=== PATIENT | male | born 1965 | race Caucasian/White ===

== ENCOUNTER 2018-10-25 15:06 | Inpatient (IN) | payer MEDICARE ==
[2018-10-25] MEDS ORDERED: FUROSEMIDE INJ/PF 20 MG/2 ML SDV IV ONE (15:33)
--- NOTE | 2018-10-25 15:35 | ER Document Report ---
ED Medical Screen (RME) - General Chief Complaint: Shortness Of Breath Stated Complaint: DIFFICULTY BREATHING Time Seen by Provider: 10/25/18 15:32 Mode of Arrival: Wheelchair Information source: Patient TRAVEL OUTSIDE OF THE [place] IN LAST 30 DAYS: No - HPI Patient complains to provider of: SOB; CHF Onset: Other - Pt . with h/o CHF with fluid retention and SOB for the past few days. Denies CP Physical Exam - Vital signs Vitals: Temp Pulse Resp BP Pulse Ox 97.9 F 86 18 105/70 96 10/25/18 15:14 10/25/18 15:14 10/25/18 15:14 10/25/18 15:14 10/25/18 15:14 Course - Vital Signs Vital signs: Temp Pulse Resp BP Pulse Ox 97.9 F 86 18 105/70 96 10/25/18 15:14 10/25/18 15:14 10/25/18 15:14 10/25/18 15:14 10/25/18 15:14
--- NOTE | 2018-10-25 16:03 | RADIOLOGY REPORT (SQ) ---
EXAM DESCRIPTION: CHEST 2 VIEWS COMPLETED DATE/TIME: 10/25/2018 3:53 pm REASON FOR STUDY: CHF/SOB COMPARISON: None. EXAM PARAMETERS: NUMBER OF VIEWS: two views TECHNIQUE: Digital Frontal and Lateral radiographic views of the chest acquired. RADIATION DOSE: NA LIMITATIONS: none FINDINGS: LUNGS AND PLEURA: No consolidation, masses or pneumothorax. Small calcified granulomas in the right lung base. Trace right pleural effusion. MEDIASTINUM AND HILAR STRUCTURES: No masses or contour abnormalities. HEART AND VASCULAR STRUCTURES: Cardiomegaly. BONES: No acute findings. HARDWARE: Sternotomy. Cardiac defibrillator. OTHER: No other significant finding. IMPRESSION: Trace right pleural effusion. No consolidation. Cardiomegaly. TECHNICAL DOCUMENTATION: JOB ID: [id number] [place]-72 2010 [employer]- All Rights Reserved Reading location - IP/workstation name: [employer]
[2018-10-25] MEDS ORDERED: FUROSEMIDE INJ/PF 40 MG/4 ML SDV IV ONE ×2 (18:49→23:59)
[2018-10-25] MEDS ORDERED: ONDANSETRON HCL INJ/PF 4 MG/2 ML SDV IV ONE (18:49)
[2018-10-25 18:52] LABS: ABSOLUTE BASOPHILS # (AUTO) 0.1 10^3/uL (0.0-0.2); ABSOLUTE EOSINOPHILS # (AUTO) 0.1 10^3/uL (0.0-0.6); ABSOLUTE LYMPHOCYTES (AUTO) 1.3 10^3/uL (0.5-4.7); ABSOLUTE MONOCYTES (AUTO) 0.6 10^3/uL (0.1-1.4); ABSOLUTE NEUT (AUTO) 5.2 10^3/uL (1.7-8.2); BASOPHILS % (AUTO) 1.1 % (0-2); HEMATOCRIT 27.5 % (37.9-51.0); HEMOGLOBIN 8.4 g/dL (13.5-17.0); LYMPHOCYTES % (AUTO) 17.6 % (13-45); MEAN CORPUSCULAR HEMOGLOBIN 20.7 pg (27.0-33.4); MEAN CORPUSCULAR HGB CONC 30.6 g/dL (32.0-36.0); MEAN CORPUSCULAR VOLUME 68 fl (80-97); MONOCYTES % (AUTO) 8.9 % (3-13); PLATELET COUNT 434 10^3/uL (150-450); RED BLOOD COUNT 4.07 10^6/uL (4.35-5.55); RED CELL DISTRIBUTION WIDTH 20.7 % (11.5-14.0); SEGMENTED NEUTROPHILS % (AUTO) 71.4 % (42-78); TOTAL CELLS COUNTED % (AUTO) 100 %; WHITE BLOOD COUNT 7.3 10^3/uL (4.0-10.5)
[2018-10-25 19:12] LABS: ALANINE AMINOTRANSFERASE 108 U/L (21-72); ALBUMIN 3.4 g/dL (3.5-5.0); ALKALINE PHOSPHATASE 125 U/L (38-126); ANION GAP 14 (5-19); ASPARTATE AMINO TRANSFERASE 78 U/L (17-59); BILIRUBIN,DIRECT 0.5 mg/dL (0.0-0.4); BLOOD UREA NITROGEN 40 mg/dL (7-20); CALCIUM 8.9 mg/dL (8.4-10.2); CARBON DIOXIDE 22 mmol/L (22-30); CHLORIDE 98 mmol/L (98-107); CREATINE KINASE 109 U/L (55-170); GLUCOSE 245 mg/dL (75-110); POTASSIUM 3.8 mmol/L (3.6-5.0); SODIUM 134.3 mmol/L (137-145); TOTAL PROTEIN 6.8 g/dL (6.3-8.2)
[2018-10-25 19:17] LABS: CREATINE KINASE MB 2.61 ng/mL (<4.55)
[2018-10-25 19:24] LABS: TROPONIN I 0.051 ng/mL
[2018-10-25 19:41] LABS: INTERNATIONAL RATION (INR) 2.07; PROTHROMBIN TIME 24.3 SEC (11.4-15.4)
--- NOTE | 2018-10-25 20:15 | ER Document Report ---
ED Respiratory Problem - General Chief Complaint: Shortness Of Breath Stated Complaint: DIFFICULTY BREATHING Time Seen by Provider: 10/25/18 15:32 Mode of Arrival: Wheelchair Information source: Patient TRAVEL OUTSIDE OF THE [place] IN LAST 30 DAYS: No - HPI Patient complains to provider of: CHF, Short of breath Onset: Other - 2-3 days Duration: Worse/persistent Quality of pain: No pain Context: Hx CHF, Recent long distance trvl Short of Breath: Moderate Chest pain/discomfort: Tightness Cough: Nonproductive Associated symptoms: Extertional dyspnea, Orthopnea, Short of breath Similar symptoms previously: Yes Notes: Patient is a 53-year-old male presenting to the emergency room today complaining of shortness of breath, lower extremity edema and dyspnea on exertion, symptoms have been worsening over the past 3 days, he has a history of congestive heart failure, states he has gained 5 pounds over the past week as well, patient spent the last 3 drink days driving to the [place] area from [place], where he was previously in a rehab facility, he was being discharged from there and had no place to go, since he has a brother that lives in the [place] area he spent 3 days driving here, he states he stopped frequently, he did spend [address] yesterday but stopped 4-5 times, he does have a history of congestive heart failure, and NH with 1 stent, and AICD and atrial fibrillation, he takes 40 mg of torsemide twice daily, states he has not missed any doses of this, but did run out of his Coumadin 2 days ago, denies a history of DVT or PE previously, no fever, no cough, denies chest pain - Related Data Allergies/Adverse Reactions: indomethacin [From Indocin] Allergy (Verified 10/25/18 18:46) levofloxacin [From Levaquin] Allergy (Verified 10/25/18 18:46) Past Medical History - General Information source: Patient - Social History Smoking Status: Former Smoker Chew tobacco use (# tins/day): No Frequency of alcohol use: None Drug Abuse: None Family History: Reviewed & Not Pertinent Patient has suicidal ideation: No Patient has homicidal ideation: No - Past Medical History Cardiac Medical History: Reports: Hx Congestive Heart Failure Pulmonary Medical History: Reports: Hx COPD Endocrine Medical History: Reports: Hx Diabetes Mellitus Type 2 Renal/ Medical History: Denies: Hx Peritoneal Dialysis Past Surgical History: Reports: Hx Cardiac Surgery - Pacemaker/defibrillator Review of Systems - Review of Systems Constitutional: No symptoms reported EENT: No symptoms reported Cardiovascular: Orthopnea, Dyspnea, Edema Respiratory: Short of breath Gastrointestinal: No symptoms reported Genitourinary: No symptoms reported Male Genitourinary: No symptoms reported Musculoskeletal: No symptoms reported Skin: No symptoms reported Hematologic/Lymphatic: No symptoms reported Neurological/Psychological: No symptoms reported -: Yes All other systems reviewed and negative Physical Exam - Vital signs Vitals: Temp Pulse Resp BP Pulse Ox 97.9 F 86 18 105/70 96 10/25/18 15:14 10/25/18 15:14 10/25/18 15:14 10/25/18 15:14 10/25/18 15:14 Interpretation: Normal - General General appearance: Alert In distress: None - HEENT Head: Normocephalic, Atraumatic Eyes: Normal Conjunctiva: Normal Pupils: PERRL Mucous membranes: Dry - Respiratory Respiratory status: No respiratory distress Chest status: Nontender Breath sounds: Rales Chest palpation: Normal - Cardiovascular Rhythm: Regular Heart sounds: Normal auscultation Murmur: No - Abdominal Inspection: Obese Distension: No distension Bowel sounds: Normal Tenderness: Nontender Organomegaly: No organomegaly - Back Back: Normal, Nontender - Extremities General upper extremity: Normal inspection, Nontender, Normal color, Normal ROM, Normal temperature General lower extremity: Normal inspection, Nontender, Edema, Normal color, Normal ROM, Normal temperature, Normal weight bearing. No: Ramila's sign - Neurological Neuro grossly intact: Yes Cognition: Normal Orientation: AAOx4 Sid Coma Scale Eye Opening: Spontaneous [place] Coma Scale Verbal: Oriented [place] Coma Scale Motor: Obeys Commands [place] Coma Scale Total: 15 Speech: Normal Motor strength normal: LUE, RUE, LLE, RLE Sensory: Normal - Psychological Associated symptoms: Normal affect, Normal mood - Skin Skin Temperature: Warm Skin Moisture: Dry Skin Color: Normal Course - Re-evaluation Re-evalutation: 10/25/18 22:22 Patient discussed with hospitalist, Dr Morillo, who will admit for further evaluation and treatment, plan discussed with patient who is in agreement as well - Vital Signs Vital signs: Temp Pulse Resp BP Pulse Ox 97.9 F 86 16 136/81 H 100 10/25/18 15:14 10/25/18 15:14 10/25/18 21:01 10/25/18 21:01 10/25/18 21:01 - Laboratory Result Diagrams: 10/25/18 18:39 10/25/18 18:39 Laboratory results interpreted by me: 10/25/18 10/25/18 10/25/18 18:39 18:39 18:39 RBC 4.07 L Hgb 8.4 L Hct 27.5 L MCV 68 L MCH 20.7 L MCHC 30.6 L RDW 20.7 H PT APTT Sodium 134.3 L BUN 40 H Creatinine 1.78 H Est GFR ( Amer) 48 L Est GFR (Non-Af Amer) 40 L Glucose 245 H Direct Bilirubin 0.5 H AST 78 H ALT 108 H NT-Pro-B Natriuret Pep 8970 H Albumin 3.4 L Urine Urobilinogen Ur Leukocyte Esterase 10/25/18 10/25/18 18:39 21:27 RBC Hgb Hct MCV MCH MCHC RDW PT 24.3 H APTT 45.0 H Sodium BUN Creatinine Est GFR ( Amer) Est GFR (Non-Af Amer) Glucose Direct Bilirubin AST ALT NT-Pro-B Natriuret Pep Albumin Urine Urobilinogen 4.0 H Ur Leukocyte Esterase LARGE H - Diagnostic Test Radiology reviewed: Image reviewed, Reports reviewed - EKG Interpretation by Me Rate: Normal Additional EKG results interpreted by me: 10/25/18 22:16 Paced rhythm at a rate of 82 Discharge - Discharge Clinical Impression: CAESAR (acute kidney injury) Congestive heart failure Qualifiers: Heart failure type: unspecified Heart failure chronicity: acute on chronic Qualified Code(s): I50.9 - Heart failure, unspecified Anemia Qualifiers: Anemia type: unspecified type Qualified Code(s): D64.9 - Anemia, unspecified Condition: Fair Disposition: ADMITTED INPATIENT Admitting Provider: Hospitalist Unit Admitted: Telemetry
[2018-10-25 21:44] LABS: APPEARANCE,URINE SLIGHTLY-CLOUDY; BILIRUBIN,URINE NEGATIVE (NEGATIVE); COLOR,URINE YELLOW; GLUCOSE, URINE NEGATIVE (NEGATIVE); KETONES,URINE NEGATIVE (NEGATIVE); LEUKOCYTE ESTERASE,URINE LARGE (NEGATIVE); NITRITE,URINE NEGATIVE (NEGATIVE); PROTEIN,URINE NEGATIVE (NEGATIVE)
--- NOTE | 2018-10-25 22:14 | EKG REPORT ---
SEVERITY:- ABNORMAL ECG - ATRIAL-SENSED VENTRICULAR-PACED COMPLEXES FIRST DEGREE AV BLOCK LEFT ATRIAL ABNORMALITY NONSPECIFIC INTRAVENTRICULAR CONDUCTION DELAY : Confirmed by: Trista Welch 25-Oct-2018 22:12:51
[2018-10-25] MEDS ORDERED: CEFTRIAXONE INJ 1000 MG VIAL IV ONE (22:17)
[2018-10-25] MEDS ORDERED: MAGNESIUM HYDROXIDE SUSP 30 ML UDCUP PO PRN (22:38)
[2018-10-25] MEDS ORDERED: ONDANSETRON 4 MG TAB.RAPDIS PO PRN (22:47)
--- NOTE | 2018-10-25 22:55 | RADIOLOGY REPORT (SQ) ---
EXAM DESCRIPTION: NM LUNG VENTILATION PERFUSION COMPLETED DATE/TME: 10/25/2018 19:44 CLINICAL HISTORY: 53 years, Male, sob, afib, off coumadin 1 week COMPARISON: None. RADIONUCLIDE AND DOSE: 30 mCi of technetium 99m DTPA aerosol was inhaled, with 5 mCi of technetium 99m MAA injected. ADDITIONAL DRUGS AND DOSES: None TECHNIQUE: AP images of the thorax were obtained RADIATION DOSE: Unknown LIMITATIONS: None. FINDINGS: There was difficulty with the patient's IV. Perfusion images were not acquired. 5 minute ventilation images were obtained. Areas of poor radiotracer activity are noted bilaterally. Per history given the patient was unable to tolerate the exam.. IMPRESSION: Nondiagnostic exam. copyright 2010 [employer]- All Rights Reserved
--- NOTE | 2018-10-25 23:27 | PDOC H&P ---
History of Present Illness Admission Date/PCP: 10/25/18 22:48 No local primary care physician Patient complains of: Shortness of breath History of Present Illness: THADDEUS DEY is a 53 year old male with history of multiple medical problems that will be mentioned below who presented to the emergency room with acute onset of worsening dyspnea with associated orthopnea and paroxysmal nocturnal dyspnea as well as lower extremity edema with dyspnea on exertion over the last 10 days. He denies any fever or chills. He has been having cough occasionally productive of green sputum and admitted to wheezing as well as nausea without vomiting. He denies any dysuria or hematuria or flank pain. He did not have much urine output today. Upon presentation to the emergency room, vital signs were within normal. Labs revealed a hemoglobin of 8.4 hematocrit 27.5 with WBC of 7.3 and platelets of 434. The patient is not aware about history of anemia so does not know his baseline.. He is on Coumadin and INR is 2.07 with PT of 24.3 and PTT 45. CMP revealed sodium 134.3 and a BUN of 40 with a creatinine 1.78 with a blood glucose of 245. His AST was 78 and ALT 108. His BNP came back 8970 with a troponin I 0.051 and albumin of 3.4 with total protein of 6.8. His urinalysis showed large leukocyte esterase and 40 WBCs with 2 RBCs and trace bacteria. His EKG showed paced rhythm with a rate of 82. Chest x-ray revealed trace right pleural effusion and cardiomegaly. Patient went for a VQ scan to rule out PE and he could not tolerate the study therefore it was nondiagnostic. The patient was given form a gram of IV Zofran as well as 40 mg of IV Lasix and a gram of IV Rocephin. He will be admitted to telemetry bed for further evaluation and management. Past Medical History Cardiac Medical History: Reports: Atrial Fibrillation - On amiodarone and anticoagulation Coumadin, Congestive Heart Failure Pulmonary Medical History: Reports: Chronic Obstructive Pulmonary Disease ( COPD), Sleep Apnea - On home BiPAP Endocrine Medical History: Reports: Diabetes Mellitus Type 2 Past Surgical History Past Surgical History: #1 AICD placement 2. PCI and cardiac stent 3. Cholecystectomy 4. Appendectomy 5. 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 Social History Smoking Status: Former Smoker Frequency of Alcohol Use: None Hx Recreational Drug Use: No Family History Family History: CVA - Mother Parental Family History Reviewed: Yes Children Family History Reviewed: Yes Sibling(s) Family History Reviewed.: Yes Medication/Allergy Home Medications: Amiodarone HCl [Amiodarone HCl 400 mg Tablet] 2 tab PO BID 10/25/18 Clopidogrel Bisulfate [Plavix] 1 tab PO DAILY 10/25/18 Gabapentin [Neurontin 100 mg Capsule] 2 tab PO TID 10/25/18 Insulin Lispro [Humalog Kwikpen U-100] 14 units SUBCUT DAILY 10/25/18 Lorazepam [Ativan 0.5 mg Tablet] 1 tab PO PRN PRN 10/25/18 Metoprolol Succinate [Toprol Xl] 0.5 tab PO BID 10/25/18 Mexiletine HCl [Mexitil 200 mg Capsule] 1 cap PO TID 10/25/18 Ondansetron [Zofran Odt 4 mg Tablet] 1 tab PO PRN PRN 10/25/18 Spironolactone 1 tab PO DAILY 10/25/18 Torsemide [Demadex] 2 tab PO BID 10/25/18 Warfarin Sodium [Coumadin 4 mg Tablet] 4 mg PO QHS 10/25/18 Allergies/Adverse Reactions: indomethacin [From Indocin] Allergy (Verified 10/25/18 18:46) levofloxacin [From Levaquin] Allergy (Verified 10/25/18 18:46) Review of Systems Review of Systems: As per history of present illness. All pertinent systems were reviewed above. Constitutional, HEENT, cardiovascular, respiratory, GI, , musculoskeletal, neuro, psychiatric, endocrine, integumentary and hematologic systems were reviewed and are otherwise negative/unremarkable except for positive findings mentioned above in the HPI. Physical Exam Vital Signs: Temp Pulse Resp BP Pulse Ox 97.9 F 86 16 136/81 H 100 10/25/18 15:14 10/25/18 15:14 10/25/18 21:01 10/25/18 21:01 10/25/18 21:01 Intake & Output 10/24/18 10/25/18 10/26/18 06:59 06:59 06:59 Output Total 525 Balance -525 Weight 129.5 kg Exam: Generally: Pleasant obese middle-aged male in mild respiratory distress with conversational dyspnea Vital signs-as listed Head - atraumatic, normocephalic. Pupils - equal, round and reactive to light and accommodation. Extraocular movements are intact. No scleral icterus. Oropharynx - moist mucous membranes and tongue. No pharyngeal erythema or exudate. Neck - supple. No JVD. Carotid pulses 2+ bilaterally. No carotid bruits. No palpable thyromegaly or lymphadenopathy. Cardiovascular - regular rate and rhythm. Normal S1 and S2. No murmurs, gallops or rubs. Lungs -diminished bibasilar breath sounds more on the right with left basilar rales Abdomen - soft and nontender. Positive bowel sounds. No palpable organomegaly or masses. Extremities -1+ bilateral lower extremity pitting edema, with no clubbing or cyanosis. Neuro - grossly non-focal. Skin - no rashes. and rectal exam - deferred. Results Laboratory Results: 10/25/18 18:39 10/25/18 18:39 10/25/18 10/25/18 10/25/18 18:39 18:39 21:27 WBC 7.3 RBC 4.07 L Hgb 8.4 L Hct 27.5 L MCV 68 L MCH 20.7 L MCHC 30.6 L RDW 20.7 H Plt Count 434 Seg Neutrophils % 71.4 Lymphocytes % 17.6 Monocytes % 8.9 Eosinophils % 1.0 Basophils % 1.1 Absolute Neutrophils 5.2 Absolute Lymphocytes 1.3 Absolute Monocytes 0.6 Absolute Eosinophils 0.1 Absolute Basophils 0.1 Sodium 134.3 L Potassium 3.8 Chloride 98 Carbon Dioxide 22 Anion Gap 14 BUN 40 H Creatinine 1.78 H Est GFR ( Amer) 48 L Est GFR (Non-Af Amer) 40 L Glucose 245 H Calcium 8.9 Total Bilirubin 1.0 AST 78 H ALT 108 H Alkaline Phosphatase 125 Total Protein 6.8 Albumin 3.4 L Urine Color YELLOW Urine Appearance SLIGHTLY-CLOUDY Urine pH 5.0 Ur Specific [place] 1.010 Urine Protein NEGATIVE Urine Glucose (UA) NEGATIVE Urine Ketones NEGATIVE Urine Blood NEGATIVE Urine Nitrite NEGATIVE Ur Leukocyte Esterase LARGE H Urine WBC (Auto) 48 Urine RBC (Auto) 2 10/25/18 10/25/18 18:39 18:39 Creatine Kinase 109 CK-MB (CK-2) 2.61 Troponin I 0.051 NT-Pro-B Natriuret Pep 8970 H Impressions: Chest X-Ray 10/25/18 15:32 IMPRESSION: Trace right pleural effusion. No consolidation. Cardiomegaly. Lung Scan-VQ NM 10/25/18 19:44 IMPRESSION: Nondiagnostic exam. copyright 2010 [employer]- All Rights Reserved Assessment and Plan - Diagnosis (1) Acute on chronic systolic (congestive) heart failure Is this a current diagnosis for this admission?: Yes Plan: The patient will be admitted to a telemetry bed and will be diuresed with IV Lasix and continue Aldactone. Will follow serial cardiac enzymes. Will obtain a 2D echo and a cardiology consultation in a.m. (2) UTI (urinary tract infection) Is this a current diagnosis for this admission?: Yes Plan: The patient will be placed on IV Rocephin and urine culture and sensitivity will be obtained. (3) Type 2 diabetes mellitus Is this a current diagnosis for this admission?: Yes Plan: He will be placed on supplemental coverage with Humalog (4) Anemia Qualifiers: Anemia type: unspecified type Qualified Code(s): D64.9 - Anemia, unspecified Is this a current diagnosis for this admission?: Yes Plan: This could be contributing to his acute CHF. Will obtain anemia workup could be chronic secondary to his chronic kidney disease. (5) Hypertension Is this a current diagnosis for this admission?: Yes Plan: We will continue his mexiletine and Toprol-XL . (6) Atrial fibrillation Is this a current diagnosis for this admission?: Yes Plan: We will continue his amiodarone and anticoagulation with Coumadin and follow his INR. (7) CAESAR (acute kidney injury) Is this a current diagnosis for this admission?: Yes Plan: This is likely prerenal from acute CHF. Will follow BMP with diuresis. (8) DVT prophylaxis Is this a current diagnosis for this admission?: Yes Plan: He has therapeutic INR on Coumadin which will be followed - Time Medications reviewed and adjusted accordingly: Yes Anticipated discharge: Home Within: within 72 hours - Inpatient Certification Medical Necessity: Need Close Monitoring Due to Risk of Patient Decompensation, Need For Continuous Telemetry Monitoring, Risk of Complication if Not Cared For in Hospital, Other - IV diuresis - Plan Summary Plan Summary: The plan of care was discussed in details with the patient. I answered all questions. The patient agreed to proceed with the above-mentioned plan. The patient is presumably full code. This note was created by [employer] software and may contain typo errors that may have not been proofread.
[2018-10-25] MEDS ORDERED: GLUCAGON,HUMAN RECOMB 1 MG INJ IM PRN (23:30)
[2018-10-25] MEDS ORDERED: DEXTROSE 50%-WATER 25 GM/50 ML DISP.SYRIN IV PRN ×2 (23:30)
[2018-10-25] MEDS ORDERED: DEXTROSE 40% GEL 15 GM TUBE PO PRN ×2 (23:30)
[2018-10-25] MEDS ORDERED: MEXILETINE HCL 200 MG CAPSULE PO ONE (23:59)
[2018-10-25] MEDS ORDERED: AMIODARONE HCL 200 MG TABLET PO ONE (23:59)
[2018-10-25] MEDS ORDERED: GABAPENTIN 100 MG CAPSULE PO ONE (23:59)
[2018-10-26 01:49] LABS: CREATINE KINASE 96 U/L (55-170)
[2018-10-26 02:02] LABS: CREATINE KINASE MB 2.39 ng/mL (<4.55); TROPONIN I 0.075 ng/mL
[2018-10-26] MEDS: ONDANSETRON HCL INJ/PF 4 MG/2 ML SDV IV PRN ×2 (07:23→17:51)
[2018-10-26 07:41] LABS: ABSOLUTE BASOPHILS # (AUTO) 0.1 10^3/uL (0.0-0.2); ABSOLUTE EOSINOPHILS # (AUTO) 0.1 10^3/uL (0.0-0.6); ABSOLUTE MONOCYTES (AUTO) 0.7 10^3/uL (0.1-1.4); ABSOLUTE NEUT (AUTO) 5.5 10^3/uL (1.7-8.2); ABSOLUTE RETICS # 0.133 10^6/uL (0.028-0.122); BASOPHILS % (AUTO) 1.2 % (0-2); EOSINOPHILS % (AUTO) 1.4 % (0-6); HEMATOCRIT 27.6 % (37.9-51.0); HEMOGLOBIN 8.2 g/dL (13.5-17.0); LYMPHOCYTES % (AUTO) 13.4 % (13-45); MEAN CORPUSCULAR HEMOGLOBIN 20.1 pg (27.0-33.4); MEAN CORPUSCULAR HGB CONC 29.7 g/dL (32.0-36.0); MEAN CORPUSCULAR VOLUME 68 fl (80-97); PLATELET COUNT 425 10^3/uL (150-450); RED BLOOD COUNT 4.09 10^6/uL (4.35-5.55); RED CELL DISTRIBUTION WIDTH 20.6 % (11.5-14.0); RETICULOCYTE COUNT (AUTO) 3.25 % (0.66-2.85); TOTAL CELLS COUNTED % (AUTO) 100 %; WHITE BLOOD COUNT 7.4 10^3/uL (4.0-10.5)
[2018-10-26 07:45] LABS: ANION GAP 13 (5-19); BLOOD UREA NITROGEN 38 mg/dL (7-20); CALCIUM 8.7 mg/dL (8.4-10.2); CARBON DIOXIDE 24 mmol/L (22-30); CHLORIDE 99 mmol/L (98-107); GLUCOSE 198 mg/dL (75-110); IRON(TIBC) 27.6 ug/dL (49-181); POTASSIUM 3.9 mmol/L (3.6-5.0); SODIUM 135.8 mmol/L (137-145)
[2018-10-26 07:57] LABS: CREATINE KINASE MB 2.17 ng/mL (<4.55); TROPONIN I 0.068 ng/mL
[2018-10-26] MEDS: INSULIN LISPRO 100 UNIT/ML 3 ML VIAL SUBCUT SCH ×4 (07:57→21:53)
[2018-10-26] MEDS: SPIRONOLACTONE 25 MG TABLET PO SCH (09:19)
[2018-10-26] MEDS: CLOPIDOGREL BISULFATE 75 MG TABLET PO SCH (09:20)
[2018-10-26] MEDS ORDERED: FUROSEMIDE INJ/PF 40 MG/4 ML SDV IV SCH (10:00)
[2018-10-26] MEDS ORDERED: METOPROLOL SUCCINATE 25 MG TAB.SR.24H PO SCH (10:00)
[2018-10-26] MEDS ORDERED: AMIODARONE HCL 200 MG TABLET PO SCH (10:00)
[2018-10-26] MEDS ORDERED: GABAPENTIN 100 MG CAPSULE PO SCH (10:00)
[2018-10-26] MEDS ORDERED: ENOXAPARIN SODIUM INJ 40 MG/0.4 ML DISP.SYRIN SUBCUT SCH (10:00)
--- NOTE | 2018-10-26 11:27 | PDOC PROGRESS REPORT ---
Subjective Progress Note for:: 10/26/18 Subjective:: Patient reports that he is still having difficulty breathing. He reports needing high doses of Lasix in the past. Going a little further back in his history reports having a heart attack and episodes of ventricular tachycardia, with the most recent episodes occurring in August 2018. They occurred shortly after the of his [id number], whom he found and seemingly lived with. Seems to be struggling to come to terms with this. He recently moved from [facility] to [place]. He has not found a primary care physician or product development assistant. Denies dietary indiscretions. Reports taking his medications. Last hospitalization 3 weeks ago. It was for similar episode. He also reports what sounds like he has had hemodialysis in the past in order to remove fluid. Seems to be quite susceptible to fluid overload. He does speak in full sentences. He does hunch over at times. He has difficulty laying flat in bed without become and short of breath. He has chronic skin changes on bilateral lower extremities. He does report a smoking history of 30 pack/year, quitting approximately 10 years ago. Reason For Visit: ACUTE ON CHRONIC CHF Physical Exam Vital Signs: Temp Pulse Resp BP Pulse Ox 98.4 F 79 24 H 109/71 100 10/26/18 07:00 10/26/18 07:00 10/26/18 07:00 10/26/18 07:00 10/26/18 07:00 Intake & Output 10/25/18 10/26/18 10/27/18 06:59 06:59 06:59 Intake Total 480 Output Total 1025 Balance -545 Weight 129.2 kg General appearance: PRESENT: no acute distress, cooperative, obese, other - Seems uncomfortable. Malodorous Head exam: PRESENT: atraumatic, normocephalic Eye exam: PRESENT: conjunctiva pink, EOMI, PERRLA. ABSENT: scleral icterus Ear exam: PRESENT: normal external ear exam Mouth exam: PRESENT: moist, neck supple Neck exam: ABSENT: carotid bruit, JVD, lymphadenopathy, thyromegaly Respiratory exam: PRESENT: other - Crackles right > left. No rhonchi or wheeze appreciated Cardiovascular exam: PRESENT: RRR, +S1, +S2 Pulses: PRESENT: +1 pedal pulses bilateral GI/Abdominal exam: PRESENT: other - Soft, nontender, slight distention. No signs of acute abdomen. Extremities exam: PRESENT: other - 1-2+ edema bilateral lower extremities. Chronic skin changes bilateral lower extremities. Musculoskeletal exam: PRESENT: full ROM, normal inspection Neurological exam: PRESENT: alert, awake, oriented to person, oriented to place, oriented to time, oriented to situation, CN II-XII grossly intact. ABSENT: motor sensory deficit Psychiatric exam: PRESENT: depressed, flat affect, other Results Laboratory Results: 10/26/18 07:10 10/26/18 07:10 10/25/18 10/25/18 10/25/18 18:39 18:39 18:39 WBC 7.3 RBC 4.07 L Hgb 8.4 L Hct 27.5 L MCV 68 L MCH 20.7 L MCHC 30.6 L RDW 20.7 H Plt Count 434 Seg Neutrophils % 71.4 Lymphocytes % 17.6 Monocytes % 8.9 Eosinophils % 1.0 Basophils % 1.1 Absolute Neutrophils 5.2 Absolute Lymphocytes 1.3 Absolute Monocytes 0.6 Absolute Eosinophils 0.1 Absolute Basophils 0.1 Retic Count (auto) Absolute Retic Sodium 134.3 L Potassium 3.8 Chloride 98 Carbon Dioxide 22 Anion Gap 14 BUN 40 H Creatinine 1.78 H Est GFR ( Amer) 48 L Est GFR (Non-Af Amer) 40 L Glucose 245 H Calcium 8.9 Magnesium Iron TIBC % Saturation Ferritin Total Bilirubin 1.0 AST 78 H ALT 108 H Alkaline Phosphatase 125 Total Protein 6.8 Albumin 3.4 L Vitamin B12 Folate TSH 0.16 L Urine Color Urine Appearance Urine pH Ur Specific [place] Urine Protein Urine Glucose (UA) Urine Ketones Urine Blood Urine Nitrite Ur Leukocyte Esterase Urine WBC (Auto) Urine RBC (Auto) 10/25/18 10/26/18 10/26/18 21:27 07:10 07:10 WBC 7.4 RBC 4.09 L Hgb 8.2 L Hct 27.6 L MCV 68 L MCH 20.1 L MCHC 29.7 L RDW 20.6 H Plt Count 425 Seg Neutrophils % 75.0 Lymphocytes % 13.4 Monocytes % 9.0 Eosinophils % 1.4 Basophils % 1.2 Absolute Neutrophils 5.5 Absolute Lymphocytes 1.0 Absolute Monocytes 0.7 Absolute Eosinophils 0.1 Absolute Basophils 0.1 Retic Count (auto) 3.25 H Absolute Retic 0.133 H Sodium 135.8 L Potassium 3.9 Chloride 99 Carbon Dioxide 24 Anion Gap 13 BUN 38 H Creatinine 1.72 H Est GFR ( Amer) 50 L Est GFR (Non-Af Amer) 41 L Glucose 198 H Calcium 8.7 Magnesium 2.2 Iron 27.6 L TIBC 406 % Saturation 7 Ferritin 22.40 Total Bilirubin AST ALT Alkaline Phosphatase Total Protein Albumin Vitamin B12 795.0 Folate 13.10 TSH Urine Color YELLOW Urine Appearance SLIGHTLY-CLOUDY Urine pH 5.0 Ur Specific [place] 1.010 Urine Protein NEGATIVE Urine Glucose (UA) NEGATIVE Urine Ketones NEGATIVE Urine Blood NEGATIVE Urine Nitrite NEGATIVE Ur Leukocyte Esterase LARGE H Urine WBC (Auto) 48 Urine RBC (Auto) 2 10/25/18 10/25/18 10/26/18 18:39 18:39 01:15 Creatine Kinase 109 96 CK-MB (CK-2) 2.61 Troponin I 0.051 NT-Pro-B Natriuret Pep 8970 H 10/26/18 10/26/18 10/26/18 01:15 07:10 07:10 Creatine Kinase 88 CK-MB (CK-2) 2.39 2.17 Troponin I 0.075 0.068 NT-Pro-B Natriuret Pep Impressions: Chest X-Ray 10/25/18 15:32 IMPRESSION: Trace right pleural effusion. No consolidation. Cardiomegaly. Lung Scan-VQ NM 10/25/18 19:44 IMPRESSION: Nondiagnostic exam. copyright 2010 [employer]- All Rights Reserved Assessment and Plan - Diagnosis (1) CKD (chronic kidney disease) stage 3, GFR 30-59 ml/min Is this a current diagnosis for this admission?: Yes (2) JAYY (obstructive sleep apnea) Is this a current diagnosis for this admission?: Yes (3) Acute on chronic systolic (congestive) heart failure Is this a current diagnosis for this admission?: Yes (4) Anemia Qualifiers: Anemia type: unspecified type Qualified Code(s): D64.9 - Anemia, unspecified Is this a current diagnosis for this admission?: Yes (5) Atrial fibrillation Is this a current diagnosis for this admission?: Yes (6) Congestive heart failure Qualifiers: Heart failure type: unspecified Heart failure chronicity: acute on chronic Qualified Code(s): I50.9 - Heart failure, unspecified Is this a current diagnosis for this admission?: Yes (7) Type 2 diabetes mellitus Qualifiers: Diabetes mellitus watermaster insulin use: with watermaster use Is this a current diagnosis for this admission?: Yes - Time Time Spent with patient: 15-24 minutes Medications reviewed and adjusted accordingly: Yes - Inpatient Certification Based on my medical assessment, after consideration of the patient's comorbidities, presenting symptoms, or acuity I expect that the services needed warrant INPATIENT care.: Yes I certify that my determination is in accordance with my understanding of Medicare's requirements for reasonable and necessary INPATIENT services [42 CFR 412.3e].: Yes - Plan Summary Plan Summary: 1. CHF: -Cardiology has been consulted -Echo pending -Increase Lasix to IV 80 mg every 8 hours. Monitor electrolytes -IV Lasix 40 mg x1 2. Atrial fibrillation -Continue current antiarrhythmics. Defer to cardiology -Continue Coumadin. Check INR daily. -Also has history of ventricular tachycardia. Has a 3-lead defibrillator placed. [employer]. 3. JAYY -May use home BiPAP 4.CKD stage 3 -Monitor closely, especially with high dose of Lasix. 5.DM -Sliding scale before meals at bedtime, restart long-acting home insulin. 6 anemia -May be combination of iron deficiency/related to chronic disease. Start ferrous sulfate with meals twice daily 7. COPD per patient -No wheezing or sign of acute exacerbation at this time. 8. UTI -continue rocephin. cultures pending. 9. History of SD - on statin and plavoix, but not on ASA. he is not sure why
[2018-10-26] MEDS: FERROUS SULFATE 325 MG TABLET PO SCH ×2 (11:56→16:52)
[2018-10-26] MEDS: MEXILETINE HCL 200 MG CAPSULE PO SCH ×3 (11:57→18:39)
[2018-10-26] MEDS ORDERED: FUROSEMIDE INJ/PF 20 MG/2 ML SDV IV ONE (12:00)
[2018-10-26] MEDS: FUROSEMIDE INJ/PF 40 MG/4 ML SDV IV SCH ×2 (13:34→21:51)
[2018-10-26 14:07] LABS: INTERNATIONAL RATION (INR) 1.97; PROTHROMBIN TIME 23.4 SEC (11.4-15.4)
[2018-10-26] MEDS: LISINOPRIL 5 MG TABLET PO SCH ×2 (14:08→21:52)
[2018-10-26 14:26] LABS: CREATINE KINASE MB 2.42 ng/mL (<4.55); TROPONIN I 0.055 ng/mL
[2018-10-26] MEDS ORDERED: BUMETANIDE INJ/PF 1 MG/4 ML SDV IV ONE (14:30)
--- NOTE | 2018-10-26 19:52 | PDOC CONSULTATION ---
Consultation-Blank Consultation: CARDIOLOGY CONSULTATION by Dr. Leena Stevens on 10/26/2018. Patient seen at 4:30 PM on 10/26/2018. Note 60 minutes spent on this patient with more than 50% time spent in direct patient care. REASON FOR CONSULTATION: Shortness of breath and leg edema in a patient with ischemic cardiomyopathy. HISTORY PRESENT ILLNESS: Patient is a 53-year-old male with known history of coronary artery disease, history of coronary bypass graft surgery history of several stents, history of several MIs, history of ischemic cardia myopathy and history of paroxysmal atrial fibrillation on amiodarone, and Coumadin, and history of AICD placement, recently was discharged from rehab facility in [place]. He had no place to go and hence decided to drive to [place] where his brother brother lives. The patient has been driving for the last 3 days although he claims that he has taken rest stops frequently. The patient also had run out of some of his medications. He has also noted increasing shortness of breath with PND orthopnea and increasing leg edema and a 5 pound weight gain in 3 days. He came to the emergency room where he was found to be short of breath and in biventricular failure and admitted for further treatment. The patient denies chest pain or discomfort. There is no palpitations. There is no firing of his AICD recently, although he states that about a month ago the AICD digoxin. He also has a history of diabetes mellitus type 2, insulin-dependent, and also history of chronic kidney disease. He is morbidly obese, and has a history of sleep apnea and uses BiPAP. The patient states even after 80 mg of IV Lasix he has not put out much urine. He has no recent anginal symptoms. He states that a stress test was done a few years ago. He also has a history of COPD. He also has a history of prior episodes of congestive heart failure. The patient could not complete a ventilation perfusion lung scan. PAST MEDICAL HISTORY: Patient has history of coronary artery disease, history of several MIs. He states he had coronary bypass Surgery in 2001. In 2008 He Was Diagnosed with Ischemic Cardiomyopathy, and Had Subsequently Had an AICD Placed. He Also Has a History of the AICD Shocking Him about a Month Ago. He Has a History of Proximal Atrial Fibrillation, Is Maintained in Sinus Rhythm/Atrial Paced Rhythm on Amiodarone. He Is Also on Coumadin. He Has a History of Hypertension, History of Diabetes Mellitus, History of Chronic Kidney Disease, History of Morbid Obesity, and History of Sleep Apnea on CPAP. He Denies Any History of Thyroid Disease. There Is No History of TIA or CVA. He Denies History of Anxiety or Depression. He Also Has a History of COPD. He also has a history of hyperlipidemia. PAST SURGICAL HISTORY Is Positive for Coronary Artery Bypass Graft Surgery, Cardiac Catheterization and Multiple Stent Placements. AICD placement. 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 FAMILY HISTORY: The patient states his sister has had premature coronary artery disease. ALLERGIES: He is allergic to indomethacin, and Levaquin. SOCIAL HISTORY: The patient is a former smoker. There is no history of EtOH abuse. DISPOSITION: The patient is a full code. His brother is his surrogate healthcare decision maker REVIEW OF SYSTEMS: CONSTITUTIONAL: Denies any fever chills or rigors. Complains of generalized fatigue and weakness. HEAD: No history of headaches or head injury. EYES: No history of amblyopia diplopia. No amaurosis fugax. No history of diabetic retinopathy. EARS: No history of tinnitus. No history of hearing loss. No history of recurrent ear infections. No vertigo. NOSE: No history of hayfever. No history of nosebleeds. No history of nasal polyps. MOUTH: No history of altered taste sensation. No ulcers in the mouth. No bleeding from the gums. THROAT: No odynophagia or dysphagia. No recurrent sore throats. SKIN: No history of pruritus. No history of yellowish discoloration of the skin. No eczema. No skin cancer. NECK: No history of neck pain. No swelling in the neck. LUNGS: History of COPD present. No symptoms of acute exacerbation. History of sleep apnea present on CPAP. No history of pulmonary embolism. History of chronic orthopnea present. No history of pleuritic chest pain. No hemoptysis. No cough wheezing or sputum production. HEART: History of ischemic cardia myopathy. History of coronary artery disease, history of several MIs in the past. History of coronary bypass graft surgery and history of stents. Await records from [place]. History of AICD placement. History of acute on chronic biventricular systolic heart failure. No firing of his AICD recently, the last episode being about a month ago. No history of syncope. He does have PND orthopnea and leg edema with weight gain of 5 pounds in the last 3 days. GI: No history of GI bleed. No history of peptic ulcer disease. No history of jaundice. No history of arthritis. No history of altered bowel movements. ENDOCRINE: History of diabetes mellitus type 2 insulin-dependent. No history of thyroid disease. No history of polydipsia polyuria. No history of heat or cold intolerance. The patient probably has diabetic nephropathy. RENAL: History of chronic kidney disease ": Stage unknown. No symptoms a UTI. No history of hematuria pyuria or dysuria. MANAGER TAX: No history of TIA CVA. No history of headaches migraines or seizures. PSYCHIATRIC: No history of anxiety or depression. No suicidal ideation. No homicidal ideation. VASCULAR: No history of calf or buttock claudication. No history of DVT. HEMATOLOGICAL: No history of bleeding diathesis no history of clotting disorders. PHYSICAL EXAMINATION: The patient is morbidly obese. He is in mild distress due to shortness of breath. He is well-groomed. Selected Entries 10/26/18 10/26/18 16:00 17:40 Temperature 98.2 F Temperature Oral Source Pulse Rate 80 Respiratory 22 H Rate Blood Pressure 103/52 L [Left] Blood Pressure 69 Mean [Left] Blood Pressure Sitting Position [Left] O2 Sat by Pulse 98 Oximetry Oxygen Delivery Nasal Cannula Method ( includes room air) Fraction of 28 Inspired Oxygen (FIO2) Oxygen Flow 2 Rate HEAD: Is atraumatic normocephalic. EYES: Pupils are equal round regular reactive to light accommodation. Extraocular movements are normal. There is no conjunctival pallor. There is no scleral icterus. EARS: Tympanic membranes are intact. External auditory canals are clear. NOSE: There is no deviated nasal septum. There is no inflammation of the nasal mucous membrane. MOUTH: Mucous noted in the mouth are moist tongue is moist. There is no ulcers. There is no bleeding from the gums. THROAT: There is no redness of the oropharynx. There is no exudates. SKIN: There is no skin rashes or skin lesions. There is no particular ecchymosis. NECK: Is supple. There is JVD present carotids are equal there is no bruits. There is no lymphadenopathy. There is no goiter. There is no accessory muscle respiration use. Trachea central LUNGS: There is diminished air entry and prolonged expiration. On percussion there is hyperresonance. There is bibasilar rales of CHF. HEART: S1-S2 is heard. S1 is of normal intensity. There is no S3 gallop. There is no S4 gallop. There is systolic murmur left sternal border and the apex there is no rub. ABDOMEN: Is obese. Nontender. There is no hepatosplenomegaly. Bowel sounds are well heard. There is no tender areas of masses. EXTREMITIES: Femorals are deep. Femorals are diminished. Leg pulses are diminished. There is 2+ to 3 minutes bilateral pedal edema present. There is no DVT or cellulitis. There is no calf tenderness. There is no sinus or clubbing. Capillary refill is normal. MANAGER TAX: The patient is conscious awake alert oriented x3 with no focal deficits. PSYCHIATRIC: The patient judgment insight are intact her affect is normal. 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 Current Medications Generic Name Dose Route Start Last Admin Trade Name Freq PRN Reason Stop Dose Admin Acetaminophen 650 mg 10/25/18 22:38 Tylenol 325 Mg Tablet PO 11/24/18 22:37 Q4HP PRN FOR PAIN OR TEMP Amiodarone HCl 400 mg 10/27/18 10:00 Cordarone 200 Mg Tablet PO 11/26/18 09:59 DAILY [facility] Atorvastatin Calcium 40 mg 10/26/18 22:00 Lipitor 40 Mg Tablet PO 11/25/18 21:59 QHS [facility] Clopidogrel Bisulfate 75 mg 10/26/18 10:00 10/26/18 09:20 Plavix 75 Mg Tablet PO 11/25/18 09:59 75 mg DAILY [facility] Administration Dextrose 12.5 gm 10/25/18 23:30 Dextrose Inj 50% Syringe (25 Gm/50 Ml) IV 11/24/18 23:29 PRN PRN FOR BG 50-69 IN ALERT PATIENT Protocol Dextrose 25 gm 10/25/18 23:30 Dextrose Inj 50% Syringe (25 Gm/50 Ml) IV 11/24/18 23:29 PRN PRN PER PROTOCOL Protocol Ferrous Sulfate 325 mg 10/26/18 12:00 10/26/18 16:52 Feosol 325 Mg Tablet PO 11/25/18 11:59 325 mg MEALS [facility] Administration Furosemide 80 mg 10/26/18 14:00 10/26/18 13:34 Lasix Inj/Pf 40 Mg/4 Ml Sdv IV 11/25/18 13:59 Not Given Q8 [facility] Gabapentin 300 mg 10/26/18 22:00 Neurontin 300 Mg Capsule PO 11/25/18 21:59 Q12 [facility] Glucagon 1 mg 10/25/18 23:30 Glucagen Inj 1 Mg Vial IM 11/24/18 23:29 PRN PRN Evaluate for BG < 70 Protocol Glucose 15 gm 10/25/18 23:30 Glutose 40% Gel 15 Gm Tube PO 11/24/18 23:29 PRN PRN FOR BG 50-69 IN ALERT PATIENT Protocol Glucose 30 gm 10/25/18 23:30 Glutose 40% Gel 15 Gm Tube PO 11/24/18 23:29 PRN PRN FOR BG < 50 IN ALERT PATIENT Protocol Ceftriaxone Sodium/Dextrose 1 gm in 50 mls @ 100 mls/hr 10/26/18 22:00 Rocephin Rtu 1 Gm/D5w 50 Ml Premix IV 11/02/18 21:59 QHS [facility] Insulin Human Lispro 0 - 12 unit 10/26/18 08:00 10/26/18 16:52 Humalog Insulin 100 Unit/1 Ml 3 Ml Vial SUBCUT 11/25/18 07:59 2 unit ACHS [facility] Administration Protocol Lisinopril 5 mg 10/26/18 14:15 10/26/18 14:08 Prinivil 5 Mg Tablet PO 11/25/18 14:14 5 mg Q12 [facility] Administration Lorazepam 0.5 mg 10/25/18 22:47 Ativan 0.5 Mg Tablet PO 11/01/18 22:46 Q6HP PRN ANXIETY Magnesium Hydroxide 30 ml 10/25/18 22:38 Milk Of Magnesia 30 Ml Udcup PO 11/24/18 22:37 HSP PRN FOR CONSTIPATION Melatonin 5 mg 10/26/18 22:00 Melatonin 5 Mg Tablet PO 11/25/18 21:59 QHS [facility] Metoprolol Succinate 25 mg 10/26/18 22:00 Toprol Xl 25 Mg Tab.Sr PO 11/25/18 21:59 Q12 [facility] Mexiletine HCl 200 mg 10/26/18 10:00 10/26/18 18:39 Mexitil 200 Mg Capsule PO 11/25/18 09:59 200 mg TID [facility] Administration Multivitamins 1 tab 10/27/18 10:00 Tab-A-Osvaldo (Multiple Vitamin) Tablet PO 11/26/18 09:59 DAILY [facility] Ondansetron HCl 4 mg 10/25/18 22:38 10/26/18 17:51 Zofran Inj/Pf 4 Mg/2 Ml Sdv IV 11/24/18 22:37 4 mg Q8HP PRN Administration FOR NAUSEA/VOMITING Ondansetron HCl 4 mg 10/25/18 22:47 Zofran Odt 4 Mg Tablet PO 11/24/18 22:46 PRN PRN FOR NAUSEA/VOMITING Potassium Chloride 20 meq 10/27/18 10:00 Klor-Con 10 Meq Capsule Er PO 11/26/18 09:59 DAILY [facility] Spironolactone 50 mg 10/26/18 10:00 10/26/18 09:19 Aldactone 25 Mg Tablet PO 11/25/18 09:59 50 mg DAILY [facility] Administration Warfarin Sodium 6 mg 10/26/18 22:00 Coumadin 1 Mg Tablet PO 11/25/18 21:59 QHS [facility] Zolpidem Tartrate 5 mg 10/25/18 22:38 Ambien 5 Mg Tablet PO 11/01/18 22:37 HSP PRN SLEEP OR INSOMNIA Discontinued Medications Generic Name Dose Route Start Last Admin Trade Name Freq PRN Reason Stop Dose Admin Amiodarone HCl 400 mg 10/26/18 10:00 10/26/18 09:19 Cordarone 200 Mg Tablet PO 11/25/18 09:59 400 mg BID [facility] Administration Amiodarone HCl 400 mg 10/25/18 23:59 10/26/18 00:49 Cordarone 200 Mg Tablet PO 10/26/18 00:00 Not Given NOW ONE Bumetanide 2 mg 10/26/18 14:30 10/26/18 14:08 Bumex Inj/Pf 1 Mg/4 Ml Sdv IV 10/26/18 14:31 2 mg NOW ONE Administration Ceftriaxone Sodium 1,000 mg 10/25/18 22:17 10/25/18 23:32 Rocephin Inj 1000 Mg Vial IV 10/25/18 22:18 1,000 mg IVBAG ONE Administration Enoxaparin Sodium 40 mg 10/26/18 10:00 10/26/18 09:27 Lovenox Inj 40 Mg/0.4 Ml Disp.Syrin SUBCUT 11/25/18 09:59 40 mg DAILY [facility] Administration Furosemide 20 mg 10/25/18 15:33 10/25/18 18:45 Lasix Inj/Pf 20 Mg/2 Ml Sdv IV 10/25/18 15:34 Not Given NOW ONE Furosemide 40 mg 10/25/18 18:49 10/25/18 19:05 Lasix Inj/Pf 40 Mg/4 Ml Sdv IV 10/25/18 18:50 40 mg NOW ONE Administration Furosemide 40 mg 10/26/18 10:00 10/26/18 09:20 Lasix Inj/Pf 40 Mg/4 Ml Sdv IV 11/25/18 09:59 40 mg Q12 [facility] Administration Furosemide 40 mg 10/25/18 23:59 10/26/18 00:53 Lasix Inj/Pf 40 Mg/4 Ml Sdv IV 10/26/18 00:00 40 mg NOW ONE Administration Furosemide 40 mg 10/26/18 12:00 10/26/18 11:57 Lasix Inj/Pf 20 Mg/2 Ml Sdv IV 10/26/18 12:01 40 mg NOW ONE Administration Gabapentin 200 mg 10/26/18 10:00 10/26/18 09:20 Neurontin 100 Mg Capsule PO 11/25/18 09:59 200 mg TID [facility] Administration Gabapentin 200 mg 10/25/18 23:59 10/26/18 00:50 Neurontin 100 Mg Capsule PO 10/26/18 00:00 Not Given NOW ONE Metoprolol Succinate 12.5 mg 10/26/18 10:00 10/26/18 09:19 Toprol Xl 25 Mg Tab.Sr PO 11/25/18 09:59 12.5 mg BID [facility] Administration Mexiletine HCl 200 mg 10/25/18 23:59 10/26/18 00:49 Mexitil 200 Mg Capsule PO 10/26/18 00:00 Not Given NOW ONE Ondansetron HCl 4 mg 10/25/18 18:49 10/25/18 19:05 Zofran Inj/Pf 4 Mg/2 Ml Sdv IV 10/25/18 18:50 4 mg NOW ONE Administration HOME MEDICATION Acetaminophen [Tylenol] 325 mg PO Q6HP PRN 10/26/18 Albuterol Sulfate [Proair Hfa Inhalation Aerosol 8.5 gm Mdi] 2 puff IH Q4HP PRN 10/26/18 Amiodarone HCl [Amiodarone HCl 400 mg Tablet] 400 mg PO DAILY 10/26/18 Cholecalciferol (Vitamin D3) [Vitamin D3 1000 Unit Tablet] 5,000 unit PO DAILY 10/26/18 Clopidogrel Bisulfate [Plavix 75 mg Tablet] 75 mg PO QHS 10/26/18 Docusate Sodium [Colace 100 mg Capsule] 100 mg PO BID 10/26/18 Gabapentin [Neurontin 100 mg Capsule] 200 mg PO Q8 10/26/18 Insulin Aspart [Novolog Insulin 100 Unit/1 ml 10 ml] 0 unit SUBCUT .SLD SCALE 10/26/18 Insulin Aspart [Novolog Insulin 100 Unit/1 ml 10 ml] 14 unit SQ DAILY 10/26/18 Insulin Aspart [Novolog Insulin 100 Unit/1 ml 10 ml] 25 unit SQ NOON 10/26/18 Insulin Aspart [Novolog Insulin 100 Unit/1 ml 10 ml] 30 unit SQ QPM 10/26/18 Lidocaine [Lidoderm 5% (700 mg) Transdermal Patch] 1 patch TP DAILY 10/26/18 Lorazepam [Ativan 0.5 mg Tablet] 0.5 mg PO Q6HP PRN 10/26/18 Melatonin [Melatonin 5 mg Tablet] 5 mg PO HSP PRN 10/26/18 Metoprolol Succinate [Toprol Xl 25 mg Tab.sr] 12.5 mg PO Q12 10/26/18 Mexiletine HCl [Mexitil 200 Mg Capsule] 200 mg PO Q8 10/26/18 Multivitamin [Multiple Vitamins] 1 each PO DAILY 10/26/18 NPH, Human Insulin Isophane [Humulin N (NPH) Insulin 100 Unit/1 ml 3 ml] 22 unit SQ DAILY 10/26/18 NPH, Human Insulin Isophane [Humulin N (NPH) Insulin 100 Unit/1 ml 3 ml] 25 unit SQ QHS 10/26/18 Nitroglycerin [Nitrostat 0.4 mg (1/150 Gr) Tabs 25/Bottle] 1 tab SL Q5MP PRN 10/26/18 Nystatin [Mycostatin Topical Powder 15 gm] 1 applic TP BID 10/26/18 Ondansetron HCl [Zofran 4 mg Tablet] 4 mg PO Q6HP PRN 10/26/18 Polyethylene Glycol 3350 [Miralax Powder 17 gm/Packet] 1 packet PO DAILY 10/26/18 Rosuvastatin Calcium [Crestor 20 mg Tablet] 20 mg PO QHS 10/26/18 Sennosides [Senokotxtra] 8.6 mg PO QHS 10/26/18 Sertraline HCl [Zoloft 50 mg Tablet] 50 mg PO DAILY 10/26/18 Spironolactone [Aldactone] 50 mg PO DAILY 10/26/18 Torsemide [Demadex 20 mg Tablet] 40 mg PO BID 10/26/18 Witch Fannie [Tucks] 1 each TP Q1HP PRN 10/26/18 Patient is on Coumadin:? Dose. Labs- Entire Visit 10/25/18 10/25/18 10/25/18 18:39 18:39 18:39 WBC 7.3 RBC 4.07 L Hgb 8.4 L Hct 27.5 L MCV 68 L MCH 20.7 L MCHC 30.6 L RDW 20.7 H Plt Count 434 Seg Neutrophils % 71.4 Lymphocytes % 17.6 Monocytes % 8.9 Eosinophils % 1.0 Basophils % 1.1 Absolute Neutrophils 5.2 Absolute Lymphocytes 1.3 Absolute Monocytes 0.6 Absolute Eosinophils 0.1 Absolute Basophils 0.1 Retic Count (auto) Absolute Retic PT INR APTT Sodium 134.3 L Potassium 3.8 Chloride 98 Carbon Dioxide 22 Anion Gap 14 BUN 40 H Creatinine 1.78 H Est GFR ( Amer) 48 L Est GFR (Non-Af Amer) 40 L Glucose 245 H POC Glucose Calcium 8.9 Magnesium Iron TIBC % Saturation Ferritin Total Bilirubin 1.0 Direct Bilirubin 0.5 H Neonat Total Bilirubin Not Reportable Neonat Direct Bilirubin Not Reportable Neonat Indirect Bili Not Reportable AST 78 H ALT 108 H Alkaline Phosphatase 125 Lactate Dehydrogenase Creatine Kinase 109 CK-MB (CK-2) 2.61 Troponin I 0.051 NT-Pro-B Natriuret Pep 8970 H Total Protein 6.8 Albumin 3.4 L Vitamin B12 Folate TSH Urine Color Urine Appearance Urine pH Ur Specific [place] Urine Protein Urine Glucose (UA) Urine Ketones Urine Blood Urine Nitrite Urine Bilirubin Urine Urobilinogen Ur Leukocyte Esterase Urine WBC (Auto) Urine RBC (Auto) U Hyaline Cast (Auto) Urine Bacteria (Auto) Squamous Epi Cells Auto Urine Mucus (Auto) Urine Ascorbic Acid 10/25/18 10/25/18 10/25/18 18:39 18:39 21:27 WBC RBC Hgb Hct MCV MCH MCHC RDW Plt Count Seg Neutrophils % Lymphocytes % Monocytes % Eosinophils % Basophils % Absolute Neutrophils Absolute Lymphocytes Absolute Monocytes Absolute Eosinophils Absolute Basophils Retic Count (auto) Absolute Retic PT 24.3 H INR 2.07 APTT 45.0 H Sodium Potassium Chloride Carbon Dioxide Anion Gap BUN Creatinine Est GFR ( Amer) Est GFR (Non-Af Amer) Glucose POC Glucose Calcium Magnesium Iron TIBC % Saturation Ferritin Total Bilirubin Direct Bilirubin Neonat Total Bilirubin Neonat Direct Bilirubin Neonat Indirect Bili AST ALT Alkaline Phosphatase Lactate Dehydrogenase Creatine Kinase CK-MB (CK-2) Troponin I NT-Pro-B Natriuret Pep Total Protein Albumin Vitamin B12 Folate TSH 0.16 L Urine Color YELLOW Urine Appearance SLIGHTLY-CLOUDY Urine pH 5.0 Ur Specific [place] 1.010 Urine Protein NEGATIVE Urine Glucose (UA) NEGATIVE Urine Ketones NEGATIVE Urine Blood NEGATIVE Urine Nitrite NEGATIVE Urine Bilirubin NEGATIVE Urine Urobilinogen 4.0 H Ur Leukocyte Esterase LARGE H Urine WBC (Auto) 48 Urine RBC (Auto) 2 U Hyaline Cast (Auto) 7 Urine Bacteria (Auto) TRACE Squamous Epi Cells Auto <1 Urine Mucus (Auto) RARE Urine Ascorbic Acid NEGATIVE 10/26/18 10/26/18 10/26/18 01:15 01:15 06:13 WBC RBC Hgb Hct MCV MCH MCHC RDW Plt Count Seg Neutrophils % Lymphocytes % Monocytes % Eosinophils % Basophils % Absolute Neutrophils Absolute Lymphocytes Absolute Monocytes Absolute Eosinophils Absolute Basophils Retic Count (auto) Absolute Retic PT INR APTT Sodium Potassium Chloride Carbon Dioxide Anion Gap BUN Creatinine Est GFR ( Amer) Est GFR (Non-Af Amer) Glucose POC Glucose 228 H Calcium Magnesium Iron TIBC % Saturation Ferritin Total Bilirubin Direct Bilirubin Neonat Total Bilirubin Neonat Direct Bilirubin Neonat Indirect Bili AST ALT Alkaline Phosphatase Lactate Dehydrogenase 306 H Creatine Kinase 96 CK-MB (CK-2) 2.39 Troponin I 0.075 NT-Pro-B Natriuret Pep Total Protein Albumin Vitamin B12 Folate TSH Urine Color Urine Appearance Urine pH Ur Specific [place] Urine Protein Urine Glucose (UA) Urine Ketones Urine Blood Urine Nitrite Urine Bilirubin Urine Urobilinogen Ur Leukocyte Esterase Urine WBC (Auto) Urine RBC (Auto) U Hyaline Cast (Auto) Urine Bacteria (Auto) Squamous Epi Cells Auto Urine Mucus (Auto) Urine Ascorbic Acid 10/26/18 10/26/18 10/26/18 07:10 07:10 07:10 WBC 7.4 RBC 4.09 L Hgb 8.2 L Hct 27.6 L MCV 68 L MCH 20.1 L MCHC 29.7 L RDW 20.6 H Plt Count 425 Seg Neutrophils % 75.0 Lymphocytes % 13.4 Monocytes % 9.0 Eosinophils % 1.4 Basophils % 1.2 Absolute Neutrophils 5.5 Absolute Lymphocytes 1.0 Absolute Monocytes 0.7 Absolute Eosinophils 0.1 Absolute Basophils 0.1 Retic Count (auto) 3.25 H Absolute Retic 0.133 H PT INR APTT Sodium 135.8 L Potassium 3.9 Chloride 99 Carbon Dioxide 24 Anion Gap 13 BUN 38 H Creatinine 1.72 H Est GFR ( Amer) 50 L Est GFR (Non-Af Amer) 41 L Glucose 198 H POC Glucose Calcium 8.7 Magnesium 2.2 Iron 27.6 L TIBC 406 % Saturation 7 Ferritin 22.40 Total Bilirubin Direct Bilirubin Neonat Total Bilirubin Neonat Direct Bilirubin Neonat Indirect Bili AST ALT Alkaline Phosphatase Lactate Dehydrogenase Creatine Kinase 88 CK-MB (CK-2) Troponin I NT-Pro-B Natriuret Pep Total Protein Albumin Vitamin B12 795.0 Folate 13.10 TSH Urine Color Urine Appearance Urine pH Ur Specific [place] Urine Protein Urine Glucose (UA) Urine Ketones Urine Blood Urine Nitrite Urine Bilirubin Urine Urobilinogen Ur Leukocyte Esterase Urine WBC (Auto) Urine RBC (Auto) U Hyaline Cast (Auto) Urine Bacteria (Auto) Squamous Epi Cells Auto Urine Mucus (Auto) Urine Ascorbic Acid 10/26/18 10/26/18 10/26/18 07:10 11:54 13:48 WBC RBC Hgb Hct MCV MCH MCHC RDW Plt Count Seg Neutrophils % Lymphocytes % Monocytes % Eosinophils % Basophils % Absolute Neutrophils Absolute Lymphocytes Absolute Monocytes Absolute Eosinophils Absolute Basophils Retic Count (auto) Absolute Retic PT INR APTT Sodium Potassium Chloride Carbon Dioxide Anion Gap BUN Creatinine Est GFR ( Amer) Est GFR (Non-Af Amer) Glucose POC Glucose 206 H Calcium Magnesium Iron TIBC % Saturation Ferritin Total Bilirubin Direct Bilirubin Neonat Total Bilirubin Neonat Direct Bilirubin Neonat Indirect Bili AST ALT Alkaline Phosphatase Lactate Dehydrogenase Creatine Kinase 87 CK-MB (CK-2) 2.17 Troponin I 0.068 NT-Pro-B Natriuret Pep Total Protein Albumin Vitamin B12 Folate TSH Urine Color Urine Appearance Urine pH Ur Specific [place] Urine Protein Urine Glucose (UA) Urine Ketones Urine Blood Urine Nitrite Urine Bilirubin Urine Urobilinogen Ur Leukocyte Esterase Urine WBC (Auto) Urine RBC (Auto) U Hyaline Cast (Auto) Urine Bacteria (Auto) Squamous Epi Cells Auto Urine Mucus (Auto) Urine Ascorbic Acid 10/26/18 10/26/18 10/26/18 13:48 13:48 16:40 WBC RBC Hgb Hct MCV MCH MCHC RDW Plt Count Seg Neutrophils % Lymphocytes % Monocytes % Eosinophils % Basophils % Absolute Neutrophils Absolute Lymphocytes Absolute Monocytes Absolute Eosinophils Absolute Basophils Retic Count (auto) Absolute Retic PT 23.4 H INR 1.97 APTT Sodium Potassium Chloride Carbon Dioxide Anion Gap BUN Creatinine Est GFR ( Amer) Est GFR (Non-Af Amer) Glucose POC Glucose 168 H Calcium Magnesium Iron TIBC % Saturation Ferritin Total Bilirubin Direct Bilirubin Neonat Total Bilirubin Neonat Direct Bilirubin Neonat Indirect Bili AST ALT Alkaline Phosphatase Lactate Dehydrogenase Creatine Kinase CK-MB (CK-2) 2.42 Troponin I 0.055 NT-Pro-B Natriuret Pep Total Protein Albumin Vitamin B12 Folate TSH Urine Color Urine Appearance Urine pH Ur Specific [place] Urine Protein Urine Glucose (UA) Urine Ketones Urine Blood Urine Nitrite Urine Bilirubin Urine Urobilinogen Ur Leukocyte Esterase Urine WBC (Auto) Urine RBC (Auto) U Hyaline Cast (Auto) Urine Bacteria (Auto) Squamous Epi Cells Auto Urine Mucus (Auto) Urine Ascorbic Acid Chest X-Ray 10/25/18 15:32 IMPRESSION: Trace right pleural effusion. No consolidation. Cardiomegaly. Lung Scan-VQ NM 10/25/18 19:44 IMPRESSION: Nondiagnostic exam. EKG: Shows atrial and ventricular paced rhythm. IMPRESSION/RECOMMENDATION: 1. Acute on chronic right and left ventricular systolic heart failure. Will try IV Demadex since the patient states that with the IV Lasix he has not urinated much. We will start the patient on lisinopril 5 mg p.o. every 12 hours and increase as tolerated. We will increase the patient's Lopressor to 25 mg XL twice daily. 2. Ischemic cardiomyopathy with most likely severely repeat depressed LV ejection fraction. 3. Most likely has pulmonary hypertension of significance. 4. Coronary artery disease: History of prior MIs, and history of coronary bypass graft surgery, and history of stent placement. No anginal symptoms. So far the troponin I is negative. We will try to get the patient's records. 5. Paroxysmal atrial fibrillation: Would decrease the patient's amiodarone to 400 mg once a day. Will check the patient's T3 and T4 6. Hypertension: Blood pressure well controlled. 7. Diabetes mellitus type 2 insulin-dependent: Continue patient's insulin, and check patient's blood sugars periodically. 8. Hyperlipidemia: Continue statin. 9. Obstructive sleep apnea: Would continue the patient's CPAP 10. Morbid obesity: Later would recommend patient strict diet, and weight loss program. 11. History of AICD placement: No recent firing of AICD. The last firing/shock by AICD was about a month ago as per patient's history. Medications reviewed. Medications adjusted and new medications added. Medical decision making is of high complexity. Management plan discussed with the attending physician on the case. We will obtain records from [place]. Will follow. .
[2018-10-26] MEDS: ATORVASTATIN CALCIUM 40 MG TABLET PO SCH (21:52)
[2018-10-26] MEDS: GABAPENTIN 300 MG CAPSULE PO SCH (21:52)
[2018-10-26] MEDS: METOPROLOL SUCCINATE 25 MG TAB.SR.24H PO SCH (21:52)
[2018-10-26] MEDS: MELATONIN 5 MG TABLET PO SCH (21:52)
[2018-10-26] MEDS: CEFTRIAXONE 1 GM/D5W RTU 1 GM/50 ML RTUPB IV SCH (21:53)
[2018-10-26] MEDS: ZOLPIDEM TARTRATE 5 MG TABLET PO PRN (21:54)
[2018-10-26] MEDS ORDERED: (PENDING PHARMACY ID) (Rosuvastatin Calcium [Rosuvastatin Calcium] 20 MG) PO SCH (22:00)
[2018-10-26] MEDS ORDERED: WARFARIN SODIUM 1 MG TABLET PO SCH (22:00)
[2018-10-26] MEDS ORDERED: (PENDING PHARMACY ID) (Warfarin Sodium 3 MG) PO SCH (22:00)
[2018-10-26] MEDS ORDERED: WARFARIN SODIUM 3 MG TABLET ONE (22:32)
[2018-10-27] MEDS: FUROSEMIDE INJ/PF 40 MG/4 ML SDV IV SCH (07:07)
[2018-10-27 07:55] LABS: ABSOLUTE BASOPHILS # (AUTO) 0.1 10^3/uL (0.0-0.2); ABSOLUTE EOSINOPHILS # (AUTO) 0.1 10^3/uL (0.0-0.6); ABSOLUTE MONOCYTES (AUTO) 0.7 10^3/uL (0.1-1.4); ABSOLUTE NEUT (AUTO) 5.5 10^3/uL (1.7-8.2); BASOPHILS % (AUTO) 1.6 % (0-2); EOSINOPHILS % (AUTO) 1.5 % (0-6); HEMATOCRIT 26.4 % (37.9-51.0); LYMPHOCYTES % (AUTO) 12.9 % (13-45); MEAN CORPUSCULAR HEMOGLOBIN 20.5 pg (27.0-33.4); MEAN CORPUSCULAR HGB CONC 30.3 g/dL (32.0-36.0); MEAN CORPUSCULAR VOLUME 68 fl (80-97); PLATELET COUNT 387 10^3/uL (150-450); TOTAL CELLS COUNTED % (AUTO) 100 %; WHITE BLOOD COUNT 7.5 10^3/uL (4.0-10.5)
[2018-10-27 08:15] LABS: ALANINE AMINOTRANSFERASE 113 U/L (21-72); ALBUMIN 3.2 g/dL (3.5-5.0); ALKALINE PHOSPHATASE 114 U/L (38-126); ANION GAP 12 (5-19); ASPARTATE AMINO TRANSFERASE 80 U/L (17-59); BILIRUBIN,DIRECT 0.9 mg/dL (0.0-0.4); BILIRUBIN,TOTAL 1.3 mg/dL (0.2-1.3); BLOOD UREA NITROGEN 38 mg/dL (7-20); CALCIUM 9.1 mg/dL (8.4-10.2); CARBON DIOXIDE 24 mmol/L (22-30); CHLORIDE 99 mmol/L (98-107); GLUCOSE 135 mg/dL (75-110); POTASSIUM 3.8 mmol/L (3.6-5.0); SODIUM 135.2 mmol/L (137-145); TOTAL PROTEIN 6.2 g/dL (6.3-8.2)
[2018-10-27 08:28] LABS: FREE T3 4.77 pg/mL (2.77-5.27); FREE T4 (FREE THYROXINE) 4.2 ng/dL (0.78-2.19)
[2018-10-27 08:42] LABS: THYROID STIMULATING HORMONE 0.07 uIU/mL (0.47-4.68)
[2018-10-27] MEDS: INSULIN LISPRO 100 UNIT/ML 3 ML VIAL SUBCUT SCH ×4 (08:57→22:01)
[2018-10-27] MEDS: FERROUS SULFATE 325 MG TABLET PO SCH ×3 (08:57→18:05)
--- NOTE | 2018-10-27 09:35 | PDOC PROGRESS REPORT ---
Subjective Progress Note for:: 10/27/18 Subjective:: The patient is resting in bed on his CPAP. He is lying fairly flat. He was unable to do this prior to admission. His breathing appears comfortable. Reason For Visit: ACUTE ON CHRONIC CHF Physical Exam Vital Signs: Temp Pulse Resp BP Pulse Ox 98.3 F 69 18 100/68 96 10/27/18 03:31 10/27/18 03:31 10/27/18 03:31 10/27/18 03:31 10/27/18 03:31 Intake & Output 10/26/18 10/27/18 10/28/18 06:59 06:59 06:59 Intake Total 480 1590 Output Total 1025 1200 Balance -545 390 Weight 129.2 kg 129.2 kg General appearance: PRESENT: no acute distress, cooperative, obese, well- developed Head exam: PRESENT: atraumatic, normocephalic Results Laboratory Results: 10/27/18 07:24 10/27/18 07:24 10/27/18 10/27/18 07:24 07:24 WBC 7.5 RBC 3.90 L Hgb 8.0 L Hct 26.4 L MCV 68 L MCH 20.5 L MCHC 30.3 L RDW 21.0 H Plt Count 387 Seg Neutrophils % 74.0 Lymphocytes % 12.9 L Monocytes % 10.0 Eosinophils % 1.5 Basophils % 1.6 Absolute Neutrophils 5.5 Absolute Lymphocytes 1.0 Absolute Monocytes 0.7 Absolute Eosinophils 0.1 Absolute Basophils 0.1 Sodium 135.2 L Potassium 3.8 Chloride 99 Carbon Dioxide 24 Anion Gap 12 BUN 38 H Creatinine 2.11 H Est GFR ( Amer) 40 L Est GFR (Non-Af Amer) 33 L Glucose 135 H Calcium 9.1 Magnesium 2.3 Total Bilirubin 1.3 AST 80 H ALT 113 H Alkaline Phosphatase 114 Total Protein 6.2 L Albumin 3.2 L 10/25/18 10/25/18 10/26/18 18:39 18:39 01:15 Creatine Kinase 109 96 CK-MB (CK-2) 2.61 Troponin I 0.051 NT-Pro-B Natriuret Pep 8970 H 10/26/18 10/26/18 10/26/18 01:15 07:10 07:10 Creatine Kinase 88 CK-MB (CK-2) 2.39 2.17 Troponin I 0.075 0.068 NT-Pro-B Natriuret Pep 10/26/18 10/26/18 10/27/18 13:48 13:48 07:24 Creatine Kinase 87 CK-MB (CK-2) 2.42 Troponin I 0.055 NT-Pro-B Natriuret Pep 9850 H Impressions: Chest X-Ray 10/25/18 15:32 IMPRESSION: Trace right pleural effusion. No consolidation. Cardiomegaly. Lung Scan-VQ NM 10/25/18 19:44 IMPRESSION: Nondiagnostic exam. copyright 2010 [employer]- All Rights Reserved Assessment and Plan - Diagnosis (1) Acute on chronic systolic (congestive) heart failure Is this a current diagnosis for this admission?: Yes Plan: Patient reports feeling better this morning his breathing appears to be comfortable. He was net fluid positive by 390 mL yesterday. This does put him at a slight net negative fluid balance for his admission. He does have an iron deficiency anemia and this could be contributing to his congestive heart failure. At this time we will continue intravenous furosemide. Consider changing the patient back to torsemide in the next day or so. We may also consider adding Zaroxolyn. His potassium is stable on 20 mEq daily. We will continue his metoprolol as well as his other cardiac medications (see below). (2) Atrial fibrillation Qualifiers: Atrial fibrillation type: chronic Qualified Code(s): I48.2 - Chronic atrial fibrillation Is this a current diagnosis for this admission?: Yes Plan: Reasonable rate control this morning. His current medication regimen includes metoprolol succinate 25 mg every 12 hours, mexiletine 200 mg 3 times a day, amiodarone 400 mg daily as well as warfarin and Plavix. INR on 26 October was 1.97. His warfarin dose has been i ncreased to 6 mg. I have ordered INR checks daily. He also has a defibrillator/pacemaker implanted. Telemetry reveals paced rhythm. (3) Acute worsening of stage 3 chronic kidney disease Is this a current diagnosis for this admission?: Yes Plan: On admission the patient's creatinine was 1.78 with an estimated GFR of 40. This morning his GFR is 33 with a creatinine at 2.11. We will continue to monitor closely. I believe he is still close to his baseline. We will also continue to monitor intake and output as well as electrolytes. (4) UTI (urinary tract infection) Qualifiers: Urinary tract infection type: acute cystitis Hematuria presence: without h ematuria Qualified Code(s): N30.00 - Acute cystitis without hematuria Is this a current diagnosis for this admission?: Yes Plan: Preliminary results on his urine culture showed gram-negative bacilli at greater than 100,000 colony-forming units per milliliter. He is currently on Rocephin. Continue current antibiotics until further identification is available and then adjust antibiotics accordingly. (5) Anemia Qualifiers: Anemia type: iron deficiency Qualified Code(s): D64.9 - Anemia, unspecified Is this a current diagnosis for this admission?: Yes Plan: Hemoglobin is down to 8.0. The patient has underlying renal insufficiency as well as significant coronary disease with acute on chronic systolic congestive heart failure. His hemoglobin ideally should be 9.0 or above. We will discuss transfusion with the patient as it will help with his failure and perfusion. Supplemental iron has already been started. (6) Hypertension Qualifiers: Hypertension type: essential hypertension Qualified Code(s): I10 - E ssential (primary) hypertension Is this a current diagnosis for this admission?: Yes Plan: Excellent blood pressure control. To ensure good perfusion we do not want his blood pressure to fall below 100. Continue current medications which include the metoprolol, Aldactone, lisinopril 5 mg twice daily and furosemide. 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 He is currently only on sliding scale. We will need to monitor his sliding scale requirements. He needed 6 units total yesterday. We may need to add back some NPH. Will base this decision on his sliding scale requirements. (8) Obesity, Class III, BMI 40-49.9 (morbid obesity) Is this a current diagnosis for this admission?: Yes Plan: BMI is 42. The patient needs to get on a good cardiac/diabetic diet as well as start exercising. He may benefit from cardiac rehab after this admission to transition into reasonable exercise program. (9) Obstructive sleep apnea on CPAP Is this a current diagnosis for this admission?: Yes Plan: Patient continues on his CPAP. Obesity is likely a contributing factor. Continue CPAP at home settings. (10) Current use of halfway anticoagulation Is this a current diagnosis for this admission?: Yes Plan: INR was 1.972 days ago. Warfarin is currently 6 mg nightly. I have ordered a series of INR checks. - Time Time Spent with patient: 15-24 minutes Medications reviewed and adjusted accordingly: Yes Anticipated discharge: Home
[2018-10-27] MEDS: POTASSIUM CHLORIDE 10 MEQ CAPSULE.ER PO SCH (09:54)
[2018-10-27] MEDS: LISINOPRIL 5 MG TABLET PO SCH ×2 (09:54→21:59)
[2018-10-27] MEDS: CLOPIDOGREL BISULFATE 75 MG TABLET PO SCH (09:54)
[2018-10-27] MEDS: METOPROLOL SUCCINATE 25 MG TAB.SR.24H PO SCH ×2 (09:55→21:59)
[2018-10-27] MEDS: SPIRONOLACTONE 25 MG TABLET PO SCH (09:55)
[2018-10-27] MEDS: GABAPENTIN 300 MG CAPSULE PO SCH ×2 (09:56→21:55)
[2018-10-27] MEDS: MULTIVITAMIN TABLET PO SCH (09:56)
[2018-10-27] MEDS: MEXILETINE HCL 200 MG CAPSULE PO SCH ×3 (09:57→18:05)
[2018-10-27] MEDS ORDERED: AMIODARONE HCL 200 MG TABLET PO SCH (10:00)
[2018-10-27 10:25] LABS: PROTHROMBIN TIME 21.7 SEC (11.4-15.4)
[2018-10-27] MEDS ORDERED: FUROSEMIDE INJ/PF 100 MG/10 ML SDV IV SCH (14:00)
[2018-10-27] MEDS: WARFARIN SODIUM 3 MG TABLET PO SCH (21:54)
[2018-10-27] MEDS: POLYETHYLENE GLYCOL 3350 POWDER 17 GM/1 PACKET PO SCH (21:54)
[2018-10-27] MEDS: MELATONIN 5 MG TABLET PO SCH (21:54)
[2018-10-27] MEDS: ATORVASTATIN CALCIUM 40 MG TABLET PO SCH (21:55)
[2018-10-27] MEDS: FUROSEMIDE INJ/PF 100 MG/10 ML SDV IV SCH (21:58)
[2018-10-27] MEDS: CEFTRIAXONE 1 GM/D5W RTU 1 GM/50 ML RTUPB IV SCH (21:59)
--- NOTE | 2018-10-27 23:01 | Progress Note ---
Provider Note Provider Note: CARDIOLOGY PROGRESS, NOTE by Dr. Leena Padilla on 10/27/2018. SUBJECTIVE: The patient feels much improved. Is only minimally short of breath. There is no chest pain or discomfort. There is no arrhythmia seen on the monitor. There is no firing of his AICD. His leg edema is much improved. The patient has no orthopnea or PND. There is no bleeding on Coumadin. There is no TIA CVA symptoms SUBJECTIVE: The patient is morbidly obese but well-groomed in no acute distress. He is able to lie flat in bed. Selected Entries 10/27/18 07:47 Temperature 97.9 F Temperature Oral Source Pulse Rate 79 Respiratory 20 Rate Blood Pressure 111/66 Blood Pressure 81 Mean BP Location Right Arm BP Position Sitting O2 Sat by Pulse 94 Oximetry Oxygen Delivery Room Air Method HEAD: Is atraumatic normocephalic. EYES: Pupils are equal round regular reactive to light accommodation. Extraocular movements are normal. There is no conjunctival pallor. There is no scleral icterus. EARS: Tympanic membranes are intact. External auditory canals are clear. NOSE: There is no deviated nasal septum. There is no inflammation of the nasal mucous membrane. MOUTH: Mucous noted in the mouth are moist tongue is moist. There is no ulcers. There is no bleeding from the gums. THROAT: There is no redness of the oropharynx. There is no exudates. SKIN: There is no skin rashes or skin lesions. There is no particular ecchymosis. NECK: Is supple. There is JVD present carotids are equal there is no bruits. There is no lymphadenopathy. There is no goiter. There is no accessory muscle respiration use. Trachea central LUNGS: There is diminished air entry and prolonged expiration. On percussion there is hyperresonance. There is bibasilar rales of CHF. HEART: S1-S2 is heard. S1 is of normal intensity. There is no S3 gallop. There is no S4 gallop. There is systolic murmur left sternal border and the apex there is no rub. ABDOMEN: Is obese. Nontender. There is no hepatosplenomegaly. Bowel sounds are well heard. There is no tender areas of masses. EXTREMITIES: Femorals are deep. Femorals are diminished. Leg pulses are diminished. There is mild bilateral pedal edema present. There is no DVT or cellulitis. There is no calf tenderness. There is no sinus or clubbing. Capillary refill is normal. GARAGE DOOR HANGER: The patient is conscious awake alert oriented x3 with no focal deficits. PSYCHIATRIC: The patient judgment insight are intact her affect is normal. 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 10/27/18 10/27/18 10/27/18 07:24 07:24 07:24 WBC RBC Hgb Hct MCV MCH MCHC RDW Plt Count Seg Neutrophils % Lymphocytes % Monocytes % Eosinophils % Basophils % Absolute Neutrophils Absolute Lymphocytes Absolute Monocytes Absolute Eosinophils Absolute Basophils PT INR Sodium 135.2 L Potassium 3.8 Chloride 99 Carbon Dioxide 24 Anion Gap 12 BUN 38 H Creatinine 2.11 H Est GFR (Non-Af Amer) 33 L Glucose 135 H Hemoglobin A1c % 8.0 H Calcium 9.1 Magnesium 2.3 ALT 113 H Alkaline Phosphatase 114 Total Protein 6.2 L Albumin 3.2 L TSH 0.07 L Free T4 4.20 H Free T3 pg/mL 4.77 10/27/18 10/27/18 07:24 09:13 WBC 7.5 RBC 3.90 L Hgb 8.0 L Hct 26.4 L MCV 68 L MCH 20.5 L MCHC 30.3 L RDW 21.0 H Plt Count 387 Seg Neutrophils % 74.0 Lymphocytes % 12.9 L Monocytes % 10.0 Eosinophils % 1.5 Basophils % 1.6 Absolute Neutrophils 5.5 Absolute Lymphocytes 1.0 Absolute Monocytes 0.7 Absolute Eosinophils 0.1 Absolute Basophils 0.1 PT 21.7 H INR 1.80 Sodium Potassium Chloride Carbon Dioxide Anion Gap BUN Creatinine Est GFR (Non-Af Amer) Glucose Hemoglobin A1c % Calcium Magnesium ALT Alkaline Phosphatase Total Protein Albumin TSH Free T4 Free T3 pg/mL The patient's 24-hour intake is 1590 mL. Output is 1200 mL. I suspect that this is not accurate. IMPRESSION/RECOMMENDATION: 1. Acute on chronic right and left ventricular systolic heart failure. Will try IV Demadex since the patient states that with the IV Lasix he has not urinated much. We will start the patient on lisinopril 5 mg p.o. every 12 hours and increase as tolerated. We will increase the patient's Lopressor to 25 mg XL twice daily. 2. Ischemic cardiomyopathy with most likely severely repeat depressed LV ejection fraction. 3. Most likely has pulmonary hypertension of significance. 4. Coronary artery disease: History of prior MIs, and history of coronary bypass graft surgery, and history of stent placement. No anginal symptoms. So far the troponin I is negative. We will try to get the patient's records. 5. Paroxysmal atrial fibrillation: Would decrease the patient's amiodarone to 400 mg once a day. Will check the patient's T3 and T4 6. Hypertension: Blood pressure well controlled. 7. Diabetes mellitus type 2 insulin-dependent: Continue patient's insulin, and check patient's blood sugars periodically. 8. Hyperlipidemia: Continue statin. 9. Obstructive sleep apnea: Would continue the patient's CPAP 10. Morbid obesity: Later would recommend patient strict diet, and weight loss program. 11. History of AICD placement: No recent firing of AICD. The last firing/shock by AICD was about a month ago as per patient's history. 12. Mildly elevated free T4, and abnormal liver function tests. We will decrease the patient's amiodarone to 200 mg p.o. daily. Medications reviewed. Medications adjusted and new medications added. Medical decision making is of high complexity. Management plan discussed with the attending physician on the case. We will obtain records from [place]. Will follow.
[2018-10-28] MEDS: ZOLPIDEM TARTRATE 5 MG TABLET PO PRN ×2 (00:10→22:19)
[2018-10-28] MEDS: LORAZEPAM 0.5 MG TABLET PO PRN ×2 (00:10→22:19)
[2018-10-28] MEDS: FUROSEMIDE INJ/PF 100 MG/10 ML SDV IV SCH ×3 (05:12→22:14)
[2018-10-28 05:39] LABS: ABSOLUTE BASOPHILS # (AUTO) 0.1 10^3/uL (0.0-0.2); ABSOLUTE EOSINOPHILS # (AUTO) 0.1 10^3/uL (0.0-0.6); ABSOLUTE LYMPHOCYTES (AUTO) 1.3 10^3/uL (0.5-4.7); ABSOLUTE MONOCYTES (AUTO) 0.7 10^3/uL (0.1-1.4); ABSOLUTE NEUT (AUTO) 5.8 10^3/uL (1.7-8.2); BASOPHILS % (AUTO) 1.2 % (0-2); EOSINOPHILS % (AUTO) 1.7 % (0-6); HEMOGLOBIN 8.2 g/dL (13.5-17.0); MEAN CORPUSCULAR HEMOGLOBIN 20.7 pg (27.0-33.4); MEAN CORPUSCULAR HGB CONC 30.3 g/dL (32.0-36.0); MEAN CORPUSCULAR VOLUME 68 fl (80-97); MONOCYTES % (AUTO) 8.5 % (3-13); PLATELET COUNT 384 10^3/uL (150-450); RED BLOOD COUNT 3.96 10^6/uL (4.35-5.55); RED CELL DISTRIBUTION WIDTH 21.2 % (11.5-14.0); SEGMENTED NEUTROPHILS % (AUTO) 72.6 % (42-78); TOTAL CELLS COUNTED % (AUTO) 100 %
[2018-10-28 06:17] LABS: ANION GAP 15 (5-19); BLOOD UREA NITROGEN 46 mg/dL (7-20); CALCIUM 9.2 mg/dL (8.4-10.2); CARBON DIOXIDE 21 mmol/L (22-30); CHLORIDE 96 mmol/L (98-107); GLUCOSE 154 mg/dL (75-110); POTASSIUM 4.3 mmol/L (3.6-5.0); SODIUM 131.9 mmol/L (137-145)
[2018-10-28] MEDS: FERROUS SULFATE 325 MG TABLET PO SCH ×3 (08:17→18:14)
[2018-10-28] MEDS: INSULIN LISPRO 100 UNIT/ML 3 ML VIAL SUBCUT SCH ×4 (08:17→22:16)
[2018-10-28] MEDS: LISINOPRIL 5 MG TABLET PO SCH ×2 (09:09→22:15)
[2018-10-28] MEDS: POTASSIUM CHLORIDE 10 MEQ CAPSULE.ER PO SCH ×2 (09:17→13:09)
[2018-10-28] MEDS: POLYETHYLENE GLYCOL 3350 POWDER 17 GM/1 PACKET PO SCH (09:19)
[2018-10-28] MEDS: MULTIVITAMIN TABLET PO SCH (09:19)
[2018-10-28] MEDS: SPIRONOLACTONE 25 MG TABLET PO SCH (09:24)
[2018-10-28] MEDS: AMIODARONE HCL 200 MG TABLET PO SCH (09:24)
[2018-10-28] MEDS: MEXILETINE HCL 200 MG CAPSULE PO SCH ×3 (09:24→18:14)
[2018-10-28] MEDS: CLOPIDOGREL BISULFATE 75 MG TABLET PO SCH (09:24)
[2018-10-28] MEDS: GABAPENTIN 300 MG CAPSULE PO SCH ×2 (09:25→22:15)
[2018-10-28 09:30] LABS: INTERNATIONAL RATION (INR) 2.33; PROTHROMBIN TIME 26.7 SEC (11.4-15.4)
[2018-10-28] MEDS ORDERED: ONDANSETRON 4 MG TAB.RAPDIS PO PRN (10:30)
[2018-10-28] MEDS ORDERED: ONDANSETRON HCL INJ/PF 4 MG/2 ML SDV IV PRN (10:30)
[2018-10-28] MEDS: METOPROLOL SUCCINATE 25 MG TAB.SR.24H PO SCH ×2 (12:57→22:15)
--- NOTE | 2018-10-28 21:43 | Progress Note ---
Provider Note Provider Note: Cardiology progress note by Dr. Leena Stevens on 10/28/2018.
[2018-10-28] MEDS: WARFARIN SODIUM 3 MG TABLET PO SCH (22:15)
[2018-10-28] MEDS: MELATONIN 5 MG TABLET PO SCH (22:15)
[2018-10-28] MEDS: ATORVASTATIN CALCIUM 40 MG TABLET PO SCH (22:16)
[2018-10-28] MEDS: CEFTRIAXONE 1 GM/D5W RTU 1 GM/50 ML RTUPB IV SCH (22:16)
[2018-10-29] MEDS: FUROSEMIDE INJ/PF 100 MG/10 ML SDV IV SCH (05:53)
[2018-10-29] MEDS: INSULIN LISPRO 100 UNIT/ML 3 ML VIAL SUBCUT SCH ×4 (07:45→22:17)
[2018-10-29] MEDS: FERROUS SULFATE 325 MG TABLET PO SCH ×3 (07:46→17:21)
[2018-10-29 10:32] LABS: ABSOLUTE BASOPHILS # (AUTO) 0.1 10^3/uL (0.0-0.2); ABSOLUTE EOSINOPHILS # (AUTO) 0.1 10^3/uL (0.0-0.6); ABSOLUTE LYMPHOCYTES (AUTO) 0.7 10^3/uL (0.5-4.7); ABSOLUTE MONOCYTES (AUTO) 0.6 10^3/uL (0.1-1.4); ABSOLUTE NEUT (AUTO) 5.6 10^3/uL (1.7-8.2); BASOPHILS % (AUTO) 1.2 % (0-2); EOSINOPHILS % (AUTO) 1.6 % (0-6); HEMOGLOBIN 8.1 g/dL (13.5-17.0); LYMPHOCYTES % (AUTO) 9.3 % (13-45); MEAN CORPUSCULAR HEMOGLOBIN 20.4 pg (27.0-33.4); MEAN CORPUSCULAR HGB CONC 30.1 g/dL (32.0-36.0); MEAN CORPUSCULAR VOLUME 68 fl (80-97); MONOCYTES % (AUTO) 8.6 % (3-13); PLATELET COUNT 359 10^3/uL (150-450); RED BLOOD COUNT 3.98 10^6/uL (4.35-5.55); RED CELL DISTRIBUTION WIDTH 20.7 % (11.5-14.0); SEGMENTED NEUTROPHILS % (AUTO) 79.3 % (42-78); TOTAL CELLS COUNTED % (AUTO) 100 %; WHITE BLOOD COUNT 7.1 10^3/uL (4.0-10.5)
[2018-10-29] MEDS: POTASSIUM CHLORIDE 10 MEQ CAPSULE.ER PO SCH (10:34)
[2018-10-29] MEDS: CLOPIDOGREL BISULFATE 75 MG TABLET PO SCH (10:34)
[2018-10-29] MEDS: POLYETHYLENE GLYCOL 3350 POWDER 17 GM/1 PACKET PO SCH (10:34)
[2018-10-29] MEDS: GABAPENTIN 300 MG CAPSULE PO SCH ×2 (10:34→22:17)
[2018-10-29] MEDS: MULTIVITAMIN TABLET PO SCH (10:34)
[2018-10-29] MEDS: SPIRONOLACTONE 25 MG TABLET PO SCH (10:34)
[2018-10-29 10:36] LABS: INTERNATIONAL RATION (INR) 3.05
[2018-10-29] MEDS: METOPROLOL SUCCINATE 25 MG TAB.SR.24H PO SCH ×2 (10:36→22:17)
[2018-10-29] MEDS: LISINOPRIL 5 MG TABLET PO SCH ×2 (10:36→22:17)
[2018-10-29] MEDS: AMIODARONE HCL 200 MG TABLET PO SCH (10:41)
[2018-10-29] MEDS: MEXILETINE HCL 200 MG CAPSULE PO SCH ×3 (10:42→17:21)
[2018-10-29 11:10] LABS: ALANINE AMINOTRANSFERASE 91 U/L (21-72); ALBUMIN 3.1 g/dL (3.5-5.0); ALKALINE PHOSPHATASE 102 U/L (38-126); ANION GAP 11 (5-19); ASPARTATE AMINO TRANSFERASE 72 U/L (17-59); BILIRUBIN,DIRECT 0.4 mg/dL (0.0-0.4); BILIRUBIN,TOTAL 0.5 mg/dL (0.2-1.3); BLOOD UREA NITROGEN 39 mg/dL (7-20); CARBON DIOXIDE 24 mmol/L (22-30); CHLORIDE 97 mmol/L (98-107); GLUCOSE 221 mg/dL (75-110); POTASSIUM 4.7 mmol/L (3.6-5.0); SODIUM 131.8 mmol/L (137-145); TOTAL PROTEIN 6.1 g/dL (6.3-8.2)
[2018-10-29] MEDS: LORAZEPAM 0.5 MG TABLET PO PRN ×2 (16:03→22:17)
[2018-10-29] MEDS ORDERED: FUROSEMIDE INJ/PF 40 MG/4 ML SDV IV ONE (18:30)
[2018-10-29] MEDS: WARFARIN SODIUM 3 MG TABLET PO SCH (22:16)
[2018-10-29] MEDS: BUMETANIDE INJ/PF 1 MG/4 ML SDV IV SCH (22:16)
[2018-10-29] MEDS: MELATONIN 5 MG TABLET PO SCH (22:16)
[2018-10-29] MEDS: CEFTRIAXONE 1 GM/D5W RTU 1 GM/50 ML RTUPB IV SCH (22:17)
[2018-10-29] MEDS: ATORVASTATIN CALCIUM 40 MG TABLET PO SCH (22:17)
[2018-10-29] MEDS: ZOLPIDEM TARTRATE 5 MG TABLET PO PRN (22:17)
[2018-10-30 02:15] LABS: CREATINE KINASE MB 2.09 ng/mL (<4.55); TROPONIN I 0.049 ng/mL
[2018-10-30] MEDS ORDERED: SUCRALFATE 1 GM TABLET PO ONE (02:40)
[2018-10-30] MEDS ORDERED: FUROSEMIDE INJ/PF 20 MG/2 ML SDV IV PRN (02:59)
[2018-10-30] MEDS: BUMETANIDE INJ/PF 1 MG/4 ML SDV IV SCH ×3 (06:38→23:20)
[2018-10-30] MEDS: INSULIN LISPRO 100 UNIT/ML 3 ML VIAL SUBCUT SCH ×4 (08:11→22:32)
[2018-10-30] MEDS: FERROUS SULFATE 325 MG TABLET PO SCH ×3 (08:11→17:21)
[2018-10-30 08:20] LABS: CREATINE KINASE MB 2.41 ng/mL (<4.55); TROPONIN I 0.054 ng/mL
--- NOTE | 2018-10-30 08:35 | PDOC PROGRESS REPORT ---
Subjective Progress Note for:: 10/28/18 Subjective:: The patient is sitting in a chair.He is quite worried that his breathing is not improved. I have sat and answered all his questions as best I could. He has had no fevers or chills. No chest pain or palpitations. He just is extremely short of breath and feels like his abdomen is bloated. He does not believe he is making as much urine as he should. Reason For Visit: ACUTE ON CHRONIC CHF Physical Exam Vital Signs: Temp Pulse Resp BP Pulse Ox 98.3 F 80 16 122/72 100 10/30/18 06:03 10/30/18 06:03 10/30/18 06:03 10/30/18 06:03 10/30/18 06:03 Intake & Output 10/29/18 10/30/18 10/31/18 06:59 06:59 06:59 Intake Total 914 950 Output Total 2024 1425 Balance -1111 -475 Weight 136.4 kg 133 kg General appearance: PRESENT: morbidly obese, other - Chronically ill appearing. Head exam: PRESENT: atraumatic, normocephalic Mouth exam: PRESENT: moist, tongue midline Respiratory exam: PRESENT: crackles, decreased breath sounds Cardiovascular exam: PRESENT: RRR. ABSENT: diastolic murmur, rubs, systolic murmur GI/Abdominal exam: PRESENT: firm, tenderness Rectal exam: PRESENT: deferred Extremities exam: PRESENT: full ROM. ABSENT: calf tenderness, clubbing, pedal edema Neurological exam: PRESENT: alert, awake, oriented to person, oriented to place, oriented to time, oriented to situation, CN II-XII grossly intact. ABSENT: motor sensory deficit Psychiatric exam: PRESENT: anxious Skin exam: PRESENT: dry, intact, warm. ABSENT: cyanosis, rash Results Laboratory Results: 10/29/18 10:03 10/29/18 10:03 10/29/18 10/29/18 10/30/18 10:03 10:03 03:02 WBC 7.1 RBC 3.98 L Hgb 8.1 L Hct 27.0 L MCV 68 L MCH 20.4 L MCHC 30.1 L RDW 20.7 H Plt Count 359 Seg Neutrophils % 79.3 H Lymphocytes % 9.3 L Monocytes % 8.6 Eosinophils % 1.6 Basophils % 1.2 Absolute Neutrophils 5.6 Absolute Lymphocytes 0.7 Absolute Monocytes 0.6 Absolute Eosinophils 0.1 Absolute Basophils 0.1 Sodium 131.8 L Potassium 4.7 Chloride 97 L Carbon Dioxide 24 Anion Gap 11 BUN 39 H Creatinine 1.90 H Est GFR ( Amer) 45 L Est GFR (Non-Af Amer) 37 L Glucose 221 H Calcium 9.0 Phosphorus 4.0 Magnesium 2.3 Total Bilirubin 0.5 AST 72 H ALT 91 H Alkaline Phosphatase 102 Total Protein 6.1 L Albumin 3.1 L Blood Type A POSITIVE Antibody Screen NEGATIVE 10/25/18 10/25/18 10/26/18 18:39 18:39 01:15 Creatine Kinase 109 96 CK-MB (CK-2) 2.61 Troponin I 0.051 NT-Pro-B Natriuret Pep 8970 H 10/26/18 10/26/18 10/26/18 01:15 07:10 07:10 Creatine Kinase 88 CK-MB (CK-2) 2.39 2.17 Troponin I 0.075 0.068 NT-Pro-B Natriuret Pep 10/26/18 10/26/18 10/27/18 13:48 13:48 07:24 Creatine Kinase 87 CK-MB (CK-2) 2.42 Troponin I 0.055 NT-Pro-B Natriuret Pep 9850 H 10/29/18 10/30/18 10/30/18 10:03 01:35 01:35 Creatine Kinase 46 L CK-MB (CK-2) 2.09 Troponin I 0.049 NT-Pro-B Natriuret Pep 4850 H 10/30/18 07:35 Creatine Kinase 59 CK-MB (CK-2) Troponin I NT-Pro-B Natriuret Pep Impressions: Chest X-Ray 10/25/18 15:32 IMPRESSION: Trace right pleural effusion. No consolidation. Cardiomegaly. Lung Scan-VQ NM 10/25/18 19:44 IMPRESSION: Nondiagnostic exam. copyright 2010 [employer]- All Rights Reserved Assessment and Plan - Diagnosis (1) Acute on chronic systolic (congestive) heart failure Is this a current diagnosis for this admission?: Yes Plan: Continue 80 of IV lasix daily. Cardiology is follwing. Strict IO's. I will get the nurse to bladder scan him. (2) Pulmonary hypertension Is this a current diagnosis for this admission?: Yes Plan: Continue diuresis (3) Acute on chronic renal failure Is this a current diagnosis for this admission?: Yes Plan: Need to watch losely with diurese. He complains of not making as much urine as he would like. I will have the nurse bladder scan him. IO cath if he is retaining. (4) Persistent atrial fibrillation Is this a current diagnosis for this admission?: Yes Plan: Stable. Continue Amiodarone (5) CAD (coronary artery disease) Is this a current diagnosis for this admission?: Yes Plan: No complaints of chest pain. Cardiology is following. 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 Will check a chemistry panel in the morning. - Time Time Spent with patient: 35 or more minutes - Plan Summary Plan Summary: Intpatient hospitalization remains necessary. The patient is still requiring parenteral diuresis. I suspect he will be in the hospital for a few more days.
--- NOTE | 2018-10-30 08:49 | PDOC PROGRESS REPORT ---
Subjective Progress Note for:: 10/29/18 Subjective:: The patient is sitting in a chair.He is quite worried that his breathing is not improved.In fact he feels much worse. He has had no fevers or chills. No chest pain or palpitations. He just is extremely short of breath and feels like his abdomen is bloated. He is having more abdominal discomfort.He does not believe he is making as much urine as he should and is adament something is wrong. Reason For Visit: ACUTE ON CHRONIC CHF Physical Exam Vital Signs: Temp Pulse Resp BP Pulse Ox 98.3 F 80 16 122/72 100 10/30/18 06:03 10/30/18 06:03 10/30/18 06:03 10/30/18 06:03 10/30/18 06:03 Intake & Output 10/29/18 10/30/18 10/31/18 06:59 06:59 06:59 Intake Total 914 950 Output Total 2024 1425 Balance -1111 -475 Weight 136.4 kg 133 kg General appearance: PRESENT: morbidly obese, other - Ill appearing Head exam: PRESENT: atraumatic, normocephalic Respiratory exam: PRESENT: clear to auscultation rakesh. ABSENT: rales, rhonchi, wheezes Cardiovascular exam: PRESENT: RRR. ABSENT: diastolic murmur, rubs, systolic murmur GI/Abdominal exam: PRESENT: distended, firm, tenderness. ABSENT: guarding, mass, organolmegaly, rebound Rectal exam: PRESENT: deferred Extremities exam: PRESENT: full ROM. ABSENT: calf tenderness, clubbing, pedal edema Neurological exam: PRESENT: alert, awake, oriented to person, oriented to place, oriented to time, oriented to situation, CN II-XII grossly intact. ABSENT: motor sensory deficit Psychiatric exam: PRESENT: agitated, anxious Skin exam: PRESENT: dry, intact, warm. ABSENT: cyanosis, rash Results Laboratory Results: 10/29/18 10:03 10/29/18 10:03 10/29/18 10/29/18 10/30/18 10:03 10:03 03:02 WBC 7.1 RBC 3.98 L Hgb 8.1 L Hct 27.0 L MCV 68 L MCH 20.4 L MCHC 30.1 L RDW 20.7 H Plt Count 359 Seg Neutrophils % 79.3 H Lymphocytes % 9.3 L Monocytes % 8.6 Eosinophils % 1.6 Basophils % 1.2 Absolute Neutrophils 5.6 Absolute Lymphocytes 0.7 Absolute Monocytes 0.6 Absolute Eosinophils 0.1 Absolute Basophils 0.1 Sodium 131.8 L Potassium 4.7 Chloride 97 L Carbon Dioxide 24 Anion Gap 11 BUN 39 H Creatinine 1.90 H Est GFR ( Amer) 45 L Est GFR (Non-Af Amer) 37 L Glucose 221 H Calcium 9.0 Phosphorus 4.0 Magnesium 2.3 Total Bilirubin 0.5 AST 72 H ALT 91 H Alkaline Phosphatase 102 Total Protein 6.1 L Albumin 3.1 L Blood Type A POSITIVE Antibody Screen NEGATIVE 10/25/18 10/25/18 10/26/18 18:39 18:39 01:15 Creatine Kinase 109 96 CK-MB (CK-2) 2.61 Troponin I 0.051 NT-Pro-B Natriuret Pep 8970 H 10/26/18 10/26/18 10/26/18 01:15 07:10 07:10 Creatine Kinase 88 CK-MB (CK-2) 2.39 2.17 Troponin I 0.075 0.068 NT-Pro-B Natriuret Pep 10/26/18 10/26/18 10/27/18 13:48 13:48 07:24 Creatine Kinase 87 CK-MB (CK-2) 2.42 Troponin I 0.055 NT-Pro-B Natriuret Pep 9850 H 10/29/18 10/30/18 10/30/18 10:03 01:35 01:35 Creatine Kinase 46 L CK-MB (CK-2) 2.09 Troponin I 0.049 NT-Pro-B Natriuret Pep 4850 H 10/30/18 10/30/18 07:35 07:35 Creatine Kinase 59 CK-MB (CK-2) 2.41 Troponin I 0.054 NT-Pro-B Natriuret Pep Impressions: Chest X-Ray 10/25/18 15:32 IMPRESSION: Trace right pleural effusion. No consolidation. Cardiomegaly. Lung Scan-VQ NM 10/25/18 19:44 IMPRESSION: Nondiagnostic exam. copyright 2010 [employer]- All Rights Reserved Assessment and Plan - Diagnosis (1) Acute on chronic systolic (congestive) heart failure Is this a current diagnosis for this admission?: Yes Plan: His lasix was held yesterday due to worsening of renal function. Dr Loredo is going to try demadex today. Later in the day he was requesting lasix and I gave him a one time dose of. (2) Pulmonary hypertension Is this a current diagnosis for this admission?: Yes Plan: As above (3) Acute on chronic renal failure Is this a current diagnosis for this admission?: Yes Plan: He still complains of decreased urine output and increasing abdominal pain. Will order a CT scan of the abdomen and pelvis to see whats going on. Renal function is somewhat better after hoding lasix yesterday. Will consult nephrology as he is quite adament he thinks we need to do more. Perhaps Dr Teixeira can assist with his volume status and diuresis. (4) Persistent atrial fibrillation Is this a current diagnosis for this admission?: Yes Plan: Stable. Continue Amiodarone (5) CAD (coronary artery disease) Is this a current diagnosis for this admission?: Yes Plan: No complaints of chest pain. Cardiology is following. (6) Hypertension Is this a current diagnosis for this admission?: Yes (7) Obesity, Class III, BMI 40-49.9 (morbid obesity) Is this a current diagnosis for this admission?: Yes (8) JAYY (obstructive sleep apnea) Is this a current diagnosis for this admission?: Yes (9) Current use of intermediate anticoagulation Is this a current diagnosis for this admission?: Yes (10) Hyponatremia Is this a current diagnosis for this admission?: Yes Plan: Drifting down. Will check a chemistry panel in the morning. - Time Time Spent with patient: 35 or more minutes - Inpatient Certification Medical Necessity: Other - Inpatient hospitalization remains necessary. He seems to be getting worse and having difficulty tolerating diuresis. He needs nephrology evaluation. I suspect he will be here for several more days.
[2018-10-30 09:22] LABS: ALBUMIN 3.6 g/dL (3.5-5.0); ANION GAP 11 (5-19); BLOOD UREA NITROGEN 43 mg/dL (7-20); CALCIUM 9.1 mg/dL (8.4-10.2); CARBON DIOXIDE 21 mmol/L (22-30); CHLORIDE 95 mmol/L (98-107); GLUCOSE 169 mg/dL (75-110); PHOSPHORUS 4.1 mg/dL (2.5-4.5); POTASSIUM 5.1 mmol/L (3.6-5.0); SODIUM 127.3 mmol/L (137-145)
[2018-10-30] MEDS: SPIRONOLACTONE 25 MG TABLET PO SCH (10:02)
[2018-10-30] MEDS: CLOPIDOGREL BISULFATE 75 MG TABLET PO SCH (10:02)
[2018-10-30] MEDS: POLYETHYLENE GLYCOL 3350 POWDER 17 GM/1 PACKET PO SCH (10:02)
[2018-10-30] MEDS: METOPROLOL SUCCINATE 25 MG TAB.SR.24H PO SCH ×2 (10:03→22:33)
[2018-10-30] MEDS: POTASSIUM CHLORIDE 10 MEQ CAPSULE.ER PO SCH (10:03)
[2018-10-30] MEDS: MEXILETINE HCL 200 MG CAPSULE PO SCH ×3 (10:03→19:55)
[2018-10-30] MEDS: GABAPENTIN 300 MG CAPSULE PO SCH ×2 (10:04→22:32)
[2018-10-30] MEDS: MULTIVITAMIN TABLET PO SCH (10:04)
[2018-10-30] MEDS: AMIODARONE HCL 200 MG TABLET PO SCH (10:04)
[2018-10-30] MEDS: LISINOPRIL 5 MG TABLET PO SCH ×2 (10:04→22:33)
--- NOTE | 2018-10-30 10:29 | PDOC CONSULTATION ---
Consultation Consult Date: 10/30/18 Attending physician:: DIRK DIANE Consult reason:: I was asked to see the patient because of kidney failure. History of Present Illness Admission Date/PCP: 10/25/18 22:48 History of Present Illness: THADDEUS DEY is a 53 year old male with a complicated history of coronary artery disease, ischemic cardiomyopathy with AICD placement and last left ventricular ejection fraction of about 35%, pulmonary hypertension, paroxysmal atrial fibrillation, obstructive sleep apnea, chronic kidney disease stage III, diabetes mellitus type 2 and hypertension who was admitted on October 25, 2018 because of acute on chronic congestive heart failure. Patient just moved from [place] to here in [place] arriving here on October 25 and presenting himself to the emergency room with worsening shortness of breath. He was initially diagnosed with acute exacerbation of congestive heart failure as well as urinary tract infection secondary to E. coli. He was initially being treated with furosemide intravenously but did not seem to be working and has not really diuresis on that dose. Cardiology has, Dr. Padilla was consulted. Yesterday the patient's Lasix was switched to Bumex 2 mg IV every 8 hours. For the past 24 hours he has at least negative 1 L which is improved compared to the first 3 days of admission. His urine output yesterday was about 2025 mL which is an improvement with Bumex. Patient feels that his shortness of breath is actually worse and not better. He has a constant pain around his lower rib cage which she felt is due to the pressure from possible abdominal fluid. He mostly sits in his reclining chair because he has orthopnea. He said his leg swelling is not worse. Prior to admission he was been on torsemide being taken 40 mg, in the morning 40 mg at noon and 20 mg at night. He did not think that it was working. When he came in patient's kidney function indicate a BUN of 40, creatinine of 1.78 with estimated GFR 40. On October 28 he had a BUN of 46, creatinine of 2.5 with estimated GFR of 27. His Lasix dose was held on that day. Yesterday had a BUN of 39, creatinine of 1.9 with estimated GFR of 37 and today they were BUN of 43, creatinine of 1.79 and estimated GFR 40. Review of outside records from [place] reveals that his creatinine in September range anywhere between 1.97- 2.06. Last year around March 2018 his creatinine ranges anywhere between 1.4- 1.6. He has mildly low sodium of 131. He has mildly low albumin around 3.103.4. He denies any problems with urination including dysuria, hematuria nor any note of any foamy urine. He rarely takes ibuprofen and occasionally take Tylenol. He denies any history of hepatitis nor family history of kidney disease. He could not remember when was the last time he had cardiac catheterization. Past Medical History Cardiac Medical History: Reports: Atrial Fibrillation - On amiodarone and anticoagulation Coumadin, CHF-Systolic - Ischemic cardiomyopathy with ejection fraction of 35%, Coronary Artery Disease, Hyperlipidemia, Hypertension-primary, Pulmonary Hypertension Pulmonary Medical History: Reports: Chronic Obstructive Pulmonary Disease (COPD), Sleep Apnea - On home BiPAP Endocrine Medical History: Reports: Diabetes Mellitus Type 2 Renal/ Medical History: Reports: Chronic Kidney Disease Stage III Hematology Medical History: Reports Anemia Past Surgical History Past Surgical History: Reports: Appendectomy, Cardiac Catheterization, Cholecystectomy, Coronary Stent, Internal Defibrillator, Other - 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, 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 Frequency of Alcohol Use: None Hx Recreational Drug Use: No Drugs: None Hx Prescription Drug Abuse: No Family History Family History: CVA - Father, Malignancy - Mother had ovarian cancer Parental Family History Reviewed: Yes Children Family History Reviewed: Yes Sibling(s) Family History Reviewed.: Yes Medication/Allergy Home Medications: Acetaminophen [Tylenol] 325 mg PO Q6HP PRN 10/26/18 Albuterol Sulfate [Proair Hfa Inhalation Aerosol 8.5 gm Mdi] 2 puff IH Q4HP PRN 10/26/18 Amiodarone HCl [Amiodarone HCl 400 mg Tablet] 400 mg PO DAILY 10/26/18 Cholecalciferol (Vitamin D3) [Vitamin D3 1000 Unit Tablet] 5,000 unit PO DAILY 10/26/18 Clopidogrel Bisulfate [Plavix 75 mg Tablet] 75 mg PO QHS 10/26/18 Docusate Sodium [Colace 100 mg Capsule] 100 mg PO BID 10/26/18 Gabapentin [Neurontin 100 mg Capsule] 200 mg PO Q8 10/26/18 Insulin Aspart [Novolog Insulin 100 Unit/1 ml 10 ml] 0 unit SUBCUT .SLD SCALE 10/26/18 Insulin Aspart [Novolog Insulin 100 Unit/1 ml 10 ml] 14 unit SQ DAILY 10/26/18 Insulin Aspart [Novolog Insulin 100 Unit/1 ml 10 ml] 25 unit SQ NOON 10/26/18 Insulin Aspart [Novolog Insulin 100 Unit/1 ml 10 ml] 30 unit SQ QPM 10/26/18 Lidocaine [Lidoderm 5% (700 mg) Transdermal Patch] 1 patch TP DAILY 10/26/18 Lorazepam [Ativan 0.5 mg Tablet] 0.5 mg PO Q6HP PRN 10/26/18 Melatonin [Melatonin 5 mg Tablet] 5 mg PO HSP PRN 10/26/18 Metoprolol Succinate [Toprol Xl 25 mg Tab.sr] 12.5 mg PO Q12 10/26/18 Mexiletine HCl [Mexitil 200 Mg Capsule] 200 mg PO Q8 10/26/18 Multivitamin [Multiple Vitamins] 1 each PO DAILY 10/26/18 NPH, Human Insulin Isophane [Humulin N (NPH) Insulin 100 Unit/1 ml 3 ml] 22 unit SQ DAILY 10/26/18 NPH, Human Insulin Isophane [Humulin N (NPH) Insulin 100 Unit/1 ml 3 ml] 25 unit SQ QHS 10/26/18 Nitroglycerin [Nitrostat 0.4 mg (1/150 Gr) Tabs 25/Bottle] 1 tab SL Q5MP PRN 10/26/18 Nystatin [Mycostatin Topical Powder 15 gm] 1 applic TP BID 10/26/18 Ondansetron HCl [Zofran 4 mg Tablet] 4 mg PO Q6HP PRN 10/26/18 Polyethylene Glycol 3350 [Miralax Powder 17 gm/Packet] 1 packet PO DAILY 10/26/18 Rosuvastatin Calcium [Crestor 20 mg Tablet] 20 mg PO QHS 10/26/18 Sennosides [Senokotxtra] 8.6 mg PO QHS 10/26/18 Sertraline HCl [Zoloft 50 mg Tablet] 50 mg PO DAILY 10/26/18 Spironolactone [Aldactone] 50 mg PO DAILY 10/26/18 Torsemide [Demadex 20 mg Tablet] 40 mg PO BID 10/26/18 Witch Fannie [Tucks] 1 each TP Q1HP PRN 10/26/18 Allergies/Adverse Reactions: indomethacin [From Indocin] Allergy (Verified 10/25/18 18:46) levofloxacin [From Levaquin] Allergy (Verified 10/25/18 18:46) Review of Systems All systems: reviewed and no additional remarkable complaints except as stated Review of Systems: Constitutional: ABSENT: chills, fatigue, fever(s), headache(s), weight gain, weight loss Eyes: ABSENT: visual disturbances Ears: ABSENT: hearing changes Cardiovascular: ABSENT: Palpitations; admits right-sided chest pain, dyspnea at rest and exertion, orthopnea, and lower extremity edema Respiratory: ABSENT: cough, dyspnea, hemoptysis Gastrointestinal: ABSENT: abdominal pain, constipation, diarrhea, hematemesis, hematochezia, nausea, vomiting Genitourinary: ABSENT: dysuria, hematuria Musculoskeletal: ABSENT: joint swelling Integumentary: ABSENT: rash, wounds Neurological: ABSENT: abnormal gait, abnormal speech, confusion, dizziness, focal weakness, numbness, syncope Psychiatric: ABSENT: anxiety, depression Endocrine: ABSENT: cold intolerance, heat intolerance, polydipsia, polyuria Hematologic/Lymphatic: ABSENT: easy bleeding, easy bruising, lymphadenopathy Physical Exam Vital Signs: Temp Pulse Resp BP Pulse Ox 98.6 F 99 18 103/64 99 10/30/18 09:29 10/30/18 09:29 10/30/18 09:29 10/30/18 09:29 10/30/18 09:29 Intake & Output 10/29/18 10/30/18 10/31/18 06:59 06:59 06:59 Intake Total 914 950 Output Total 2024 1425 Balance -1111 -475 Weight 136.4 kg 133 kg Exam: General appearance: No acute distress, cooperative, well-developed, well- nourished Head exam: PRESENT: atraumatic, normocephalic Eye exam: PRESENT: Conjunctiva slightly pale, EOMI, PERRLA. ABSENT: conjunctival injection, scleral icterus Mouth exam: PRESENT: moist, neck supple, tongue midline Neck exam: PRESENT: full ROM. ABSENT: carotid bruit, JVD, lymphadenopathy, thyromegaly Respiratory exam: PRESENT: clear to auscultation bilaterally. ABSENT: rales, rhonchi, stridor, wheezes Cardiovascular exam: PRESENT: RRR, soft +S1, +S2. AICD in the left upper chest ABSENT: systolic murmur Pulses: PRESENT: normal radial pulses, normal dorsalis pedis pulses GI/Abdominal exam: PRESENT: normal bowel sounds, soft. Abdomen distended ABSENT: guarding, mass, tenderness Rectal exam: Deferred Extremities exam: PRESENT: full ROM. Grade 2 bilateral lower extremity pitting edema ABSENT: calf tenderness Musculoskeletal: PRESENT: full ROM. ABSENT: deformity Neurological exam: PRESENT: alert, Awake, Oriented to person, Oriented to place, Oriented to time, reflexes normal, CN II-XII grossly intact. ABSENT: motor sensory deficit Psychiatric exam: PRESENT: appropriate affect, normal mood. ABSENT: homicidal ideation, suicidal ideation Skin exam: PRESENT: intact, dry, warm. ABSENT: rash Results Laboratory Results: 10/29/18 10:03 10/30/18 07:35 10/29/18 10/29/18 10/30/18 10:03 10:03 03:02 WBC 7.1 RBC 3.98 L Hgb 8.1 L Hct 27.0 L MCV 68 L MCH 20.4 L MCHC 30.1 L RDW 20.7 H Plt Count 359 Seg Neutrophils % 79.3 H Lymphocytes % 9.3 L Monocytes % 8.6 Eosinophils % 1.6 Basophils % 1.2 Absolute Neutrophils 5.6 Absolute Lymphocytes 0.7 Absolute Monocytes 0.6 Absolute Eosinophils 0.1 Absolute Basophils 0.1 Sodium 131.8 L Potassium 4.7 Chloride 97 L Carbon Dioxide 24 Anion Gap 11 BUN 39 H Creatinine 1.90 H Est GFR ( Amer) 45 L Est GFR (Non-Af Amer) 37 L Glucose 221 H Calcium 9.0 Phosphorus 4.0 Magnesium 2.3 Total Bilirubin 0.5 AST 72 H ALT 91 H Alkaline Phosphatase 102 Total Protein 6.1 L Albumin 3.1 L Blood Type A POSITIVE Antibody Screen NEGATIVE 10/30/18 07:35 WBC RBC Hgb Hct MCV MCH MCHC RDW Plt Count Seg Neutrophils % Lymphocytes % Monocytes % Eosinophils % Basophils % Absolute Neutrophils Absolute Lymphocytes Absolute Monocytes Absolute Eosinophils Absolute Basophils Sodium 127.3 L Potassium 5.1 H Chloride 95 L Carbon Dioxide 21 L Anion Gap 11 BUN 43 H Creatinine 1.79 H Est GFR ( Amer) 48 L Est GFR (Non-Af Amer) 40 L Glucose 169 H Calcium 9.1 Phosphorus 4.1 Magnesium Total Bilirubin AST ALT Alkaline Phosphatase Total Protein Albumin 3.6 Blood Type Antibody Screen 10/25/18 10/25/18 10/26/18 18:39 18:39 01:15 Creatine Kinase 109 96 CK-MB (CK-2) 2.61 Troponin I 0.051 NT-Pro-B Natriuret Pep 8970 H 10/26/18 10/26/18 10/26/18 01:15 07:10 07:10 Creatine Kinase 88 CK-MB (CK-2) 2.39 2.17 Troponin I 0.075 0.068 NT-Pro-B Natriuret Pep 10/26/18 10/26/18 10/27/18 13:48 13:48 07:24 Creatine Kinase 87 CK-MB (CK-2) 2.42 Troponin I 0.055 NT-Pro-B Natriuret Pep 9850 H 10/29/18 10/30/18 10/30/18 10:03 01:35 01:35 Creatine Kinase 46 L CK-MB (CK-2) 2.09 Troponin I 0.049 NT-Pro-B Natriuret Pep 4850 H 10/30/18 10/30/18 10/30/18 07:35 07:35 07:35 Creatine Kinase 59 CK-MB (CK-2) 2.41 Troponin I 0.054 NT-Pro-B Natriuret Pep 6600 H Impressions: Chest X-Ray 10/25/18 15:32 IMPRESSION: Trace right pleural effusion. No consolidation. Cardiomegaly. [facility] 10[facility]25[facility] 19:44 IMPRESSION: Nondiagnostic exam. copyright 2011 [employer]- All Rights Reserved Assessment & Plan - Diagnosis (1) Acute on chronic systolic (congestive) heart failure Is this a current diagnosis for this admission?: Yes Plan: Patient was switch from Lasix to Bumex 2 mg IV every [address] Loredo yesterday. This seems to be working since the patient is -1 L from yesterday's intake and output balance. Continue the same. If this is not working another option would be to put the patient on metolazone in addition to the Bumex. IV dobutamine drip could also be an option but will defer that to cardiology. Dr. Padilla is on the case. (2) Ischemic cardiomyopathy Is this a current diagnosis for this admission?: Yes Plan: Left ventricular ejection fraction of about 35%. (3) CKD (chronic kidney disease) stage 3, GFR 30-59 ml/min Is this a current diagnosis for this admission?: Yes Plan: Pending the patient's kidney function is actually at his baseline at this point. This is most likely secondary to cardiorenal syndrome. He does not have any associated proteinuria no hematuria. I discussed with the patient the consequent kidney failure if he is on congestive heart failure. Also discussed with him that at this point renal replacement therapy would be the last resort if he cannot effectively diurese him using diuretics available. At this point I think the IV Bumex is starting to work which was just started yesterday. I recommend to discontinue it and continue to monitor the patient. As mentioned above metolazone will be an additional option if needed. The patient does not need any renal replacement therapy at this point. However the patient indicated that if we need to he is agreeable to doing renal replacement therapy with ultrafiltration if necessary. (4) Anemia Qualifiers: Anemia type: iron deficiency Qualified Code(s): D64.9 - Anemia, unspecified Is this a current diagnosis for this admission?: Yes Plan: Mild and likely secondary to chronic illness. (5) Atrial fibrillation Qualifiers: Atrial fibrillation type: chronic Qualified Code(s): I48.2 - Chronic atrial fibrillation Is this a current diagnosis for this admission?: Yes (6) CAD (coronary artery disease) Is this a current diagnosis for this admission?: Yes (7) Hypertension Qualifiers: Hypertension type: essential hypertension Qualified Code(s): I10 - Essential (primary) hypertension Is this a current diagnosis for this admission?: Yes Plan: Stable and currently in the low side. (8) Hyponatremia Is this a current diagnosis for this admission?: Yes Plan: Due to hypervolemic state in a patient with congestive heart failure. Needs diuresis. (9) JAYY (obstructive sleep apnea) Is this a current diagnosis for this admission?: Yes Plan: Continue BiPAP during sleep. (10) Obesity, Class III, BMI 40-49.9 (morbid obesity) Is this a current diagnosis for this admission?: Yes (11) Pulmonary hypertension Is this a current diagnosis for this admission?: Yes (12) Type 2 diabetes mellitus Qualifiers: Diabetes mellitus [facility] insulin use: with system sales consultant use Diabetes delisa itus complication status: with kidney complications Diabetes mellitus com plication detail: with chronic kidney disease Chronic kidney disease stage: stage 3 (moderate) Qualified Code(s): E11.22 - Type 2 diabetes mellitus with diabetic chronic kidney disease; N18.3 - Chronic kidney disease, stage 3 (moderate); Z79.4 - care home (current) use of insulin Is this a current diagnosis for this admission?: Yes Plan: Uncontrolled. Needs better control. (13) UTI (urinary tract infection) Qualifiers: Urinary tract infection type: acute cystitis Hematuria presence: without hematuria Qualified Code(s): N30.00 - Acute cystitis without hematuria Is this a current diagnosis for this admission?: Yes Plan: Secondary to E. coli. Currently on ceftriaxone. - Notes Notes: Thank you very much for this consultation. We will follow the patient with you. - Time Time Spent: 50 to 70 Minutes
--- NOTE | 2018-10-30 11:23 | RADIOLOGY REPORT (SQ) ---
EXAM DESCRIPTION: CT ABDOMEN NO ORAL OR IV COMPLETED DATE/TIME: 10/30/2018 11:07 am REASON FOR STUDY: abdominal pain COMPARISON: Ventilation scan 10/25/2018 Two-view chest 10/25/2018 TECHNIQUE: CT scan of the abdomen performed without intravenous contrast and without oral contrast. Images reviewed with lung, soft tissue, and bone windows. Reconstructed coronal and sagittal MPR im ages reviewed. All images stored on PACS. All CT scanners at this facility use dose modulation, iterative reconstruction, and/or weight based d osing when appropriate to reduce radiation dose to as low as reasonably achievable (ALARA). [facility]: Dose Right [facility]: CareDose [facility]: Dose Right [facility]: Teradose 4D [facility]: [employer] RADIATION DOSE: CT Rad equipment meets quality standard of care and radiation dose reduction techniq ues were employed. CTDIvol: 30.7 mGy. DLP: 1085 mGy-cm.mGy. LIMITATIONS: None. FINDINGS: LOWER CHEST: Trace bilateral pleural effusions are present, new compared to two-view chest 10/25/2018. Minimal bibasilar atelectasis. Cardiomegaly. NONCONTRASTED LIVER, SPLEEN, ADRENALS: Evaluation limited by lack of IV contrast. No identified sign ificant masses. PANCREAS: No masses. No peripancreatic inflammatory changes. GALLBLADDER: Surgically absent RIGHT KIDNEY AND URETER: No suspicious masses. Assessment limited by lack of IV contrast. No signif icant calcifications. No hydronephrosis or hydroureter. LEFT KIDNEY AND URETER: Left lower pole 2 cm cyst versus cortical nodule for which ultrasound is maryan mmended for follow-up. This is best shown on axial image 48 and coronal image 72. No significant c alcifications. No hydronephrosis or hydroureter. AORTA AND RETROPERITONEUM: Infrarenal abdominal aorta measures 4 x 4 cm. No retroperitoneal masses or adenopathy. BOWEL AND PERITONEAL CAVITY: No obvious masses or inflammatory changes. Trace right subphrenic free fluid. APPENDIX: Not in the field of view ABDOMINAL WALL: No abdominal wall hernias. BONES: No significant findings. OTHER: This report was discussed with Dr Tijerina. IMPRESSION: NO ACUTE CHANGES UNRUPTURED 4 CM ABDOMINAL AORTIC ANEURYSM 2 CM CYST VERSUS NODULE LEFT LOWER POLE KIDNEY TECHNICAL DOCUMENTATION: JOB ID: [id number] Quality ID # [id number]: Final reports with documentation of one or more dose reduction techniques (e.g., Au tomated exposure control, adjustment of the mA and/or kV according to patient size, use of iterative reconstruction technique) 2010 [employer]- All Rights Reserved Reading location - IP/workstation name: [email or web address]
[2018-10-30] MEDS ORDERED: ONDANSETRON HCL INJ/PF 4 MG/2 ML SDV IV PRN (13:00)
[2018-10-30] MEDS ORDERED: ONDANSETRON 4 MG TAB.RAPDIS PO PRN (13:00)
--- NOTE | 2018-10-30 13:52 | PDOC PROGRESS REPORT ---
Subjective Progress Note for:: 10/30/18 Subjective:: Patient is seen resting in bedside chair. He is presently on oxygen 3 L/min nasal cannula. He states he becomes short of breath with minimal exertion. He states he does not feel he is getting better. He complains of his abdomen feeling "bloated". He denies any problems with constipation or nausea. He denies any diarrhea or dysuria. He denies any fevers or chills overnight. He denies any significant arthralgias or myalgias. He tells me he does not feel his heart failure is being managed appropriately. Discussed with him that his diuretics have been changed yesterday to Bumex which tends to be more potent than the Lasix and that he did diurese a liter and a half. He is going to have a CT of the abdomen this morning where his complaints of abdominal bloating. He does not appear to be have any significant ascites on physical exam. Remaining review of systems are negative. Reason For Visit: ACUTE ON CHRONIC CHF Physical Exam Vital Signs: Temp Pulse Resp BP Pulse Ox 98.6 F 99 18 103/64 99 10/30/18 09:29 10/30/18 09:29 10/30/18 09:29 10/30/18 09:29 10/30/18 09:29 Intake & Output 10/29/18 10/30/18 10/31/18 06:59 06:59 06:59 Intake Total 914 950 Output Total 2024 1425 Balance -1111 -475 Weight 136.4 kg 133 kg General appearance: PRESENT: no acute distress, disheveled, morbidly obese, well-developed, well-nourished Eye exam: PRESENT: conjunctiva pink, EOMI, PERRLA. ABSENT: scleral icterus Ear exam: PRESENT: normal external ear exam Mouth exam: PRESENT: moist, tongue midline Neck exam: ABSENT: carotid bruit, JVD, lymphadenopathy, thyromegaly Respiratory exam: PRESENT: crackles, symmetrical, unlabored Cardiovascular exam: PRESENT: RRR. ABSENT: diastolic murmur, rubs, systolic murmur Pulses: PRESENT: normal carotid pulses, normal radial pulses Vascular exam: PRESENT: normal capillary refill GI/Abdominal exam: PRESENT: normal bowel sounds, soft, other - Large and obese Rectal exam: PRESENT: deferred Extremities exam: PRESENT: full ROM, +1 edema Musculoskeletal exam: PRESENT: ambulatory, full ROM Neurological exam: PRESENT: alert, awake, oriented to person, oriented to place, oriented to time, oriented to situation, CN II-XII grossly intact. ABSENT: motor sensory deficit Psychiatric exam: PRESENT: anxious Skin exam: PRESENT: warm, other - Chronic venous stasis in lower extremities Results Laboratory Results: 10/29/18 10:03 10/30/18 07:35 10/29/18 10/29/18 10/30/18 10:03 10:03 03:02 WBC 7.1 RBC 3.98 L Hgb 8.1 L Hct 27.0 L MCV 68 L MCH 20.4 L MCHC 30.1 L RDW 20.7 H Plt Count 359 Seg Neutrophils % 79.3 H Lymphocytes % 9.3 L Monocytes % 8.6 Eosinophils % 1.6 Basophils % 1.2 Absolute Neutrophils 5.6 Absolute Lymphocytes 0.7 Absolute Monocytes 0.6 Absolute Eosinophils 0.1 Absolute Basophils 0.1 Sodium 131.8 L Potassium 4.7 Chloride 97 L Carbon Dioxide 24 Anion Gap 11 BUN 39 H Creatinine 1.90 H Est GFR ( Amer) 45 L Est GFR (Non-Af Amer) 37 L Glucose 221 H Calcium 9.0 Phosphorus 4.0 Magnesium 2.3 Total Bilirubin 0.5 AST 72 H ALT 91 H Alkaline Phosphatase 102 Total Protein 6.1 L Albumin 3.1 L Blood Type A POSITIVE Antibody Screen NEGATIVE 10/30/18 07:35 WBC RBC Hgb Hct MCV MCH MCHC RDW Plt Count Seg Neutrophils % Lymphocytes % Monocytes % Eosinophils % Basophils % Absolute Neutrophils Absolute Lymphocytes Absolute Monocytes Absolute Eosinophils Absolute Basophils Sodium 127.3 L Potassium 5.1 H Chloride 95 L Carbon Dioxide 21 L Anion Gap 11 BUN 43 H Creatinine 1.79 H Est GFR ( Amer) 48 L Est GFR (Non-Af Amer) 40 L Glucose 169 H Calcium 9.1 Phosphorus 4.1 Magnesium Total Bilirubin AST ALT Alkaline Phosphatase Total Protein Albumin 3.6 Blood Type Antibody Screen 10/25/18 10/25/18 10/26/18 18:39 18:39 01:15 Creatine Kinase 109 96 CK-MB (CK-2) 2.61 Troponin I 0.051 NT-Pro-B Natriuret Pep 8970 H 10/26/18 10/26/18 10/26/18 01:15 07:10 07:10 Creatine Kinase 88 CK-MB (CK-2) 2.39 2.17 Troponin I 0.075 0.068 NT-Pro-B Natriuret Pep 10/26/18 10/26/18 10/27/18 13:48 13:48 07:24 Creatine Kinase 87 CK-MB (CK-2) 2.42 Troponin I 0.055 NT-Pro-B Natriuret Pep 9850 H 10/29/18 10/30/18 10/30/18 10:03 01:35 01:35 Creatine Kinase 46 L CK-MB (CK-2) 2.09 Troponin I 0.049 NT-Pro-B Natriuret Pep 4850 H 10/30/18 10/30/18 10/30/18 07:35 07:35 07:35 Creatine Kinase 59 CK-MB (CK-2) 2.41 Troponin I 0.054 NT-Pro-B Natriuret Pep 6600 H Impressions: Chest X-Ray 10/25/18 15:32 IMPRESSION: Trace right pleural effusion. No consolidation. Cardiomegaly. Lung Scan-[facility] 10/25/18 19:44 IMPRESSION: Nondiagnostic exam. copyright 2011 [employer]- All Rights Reserved Assessment and Plan - Diagnosis (1) Acute on chronic systolic (congestive) heart failure Is this a current diagnosis for this admission?: Yes Plan: Was started on Bumex 2 mg IV every [address] Padilla. He did diurese -1500 cc. BNP is elevated at 6600 though. Case was discussed with Dr. Padilla. He is planning on starting patient on dobutamine to facilitate diuresis. We will transfer him down to [facility] to start this. (2) Acute worsening of stage 3 chronic kidney disease Is this a current diagnosis for this admission?: Yes Plan: On admission the patient's creatinine was 1.78 with an estimated GFR of 40. This morning his GFR is 33 with a creatinine at 2.11. We will continue to monitor closely. I believe he is still close to his baseline. We will also continue to monitor intake and output as well as electrolytes. (3) CAD (coronary artery disease) Is this a current diagnosis for this admission?: Yes Plan: He had chest pain last night troponins were negative.. Cardiology is following. (4) Atrial fibrillation Qualifiers: Atrial fibrillation type: chronic Qualified Code(s): I48.2 - Chronic atrial fibrillation Is this a current diagnosis for this admission?: Yes Plan: Reasonable rate control this morning. His current medication regimen includes metoprolol succinate 25 mg every 12 hours, mexiletine 200 mg 3 times a day, amiodarone 400 mg daily as well as warfarin and Plavix. INR today is 3.01. Pharmacy is managing his warfarin. (5) Current use of prison anticoagulation Is this a current diagnosis for this admission?: Yes Plan: Continue coumadin (6) Hypertension Is this a current diagnosis for this admission?: Yes Plan: Stable today (7) Pulmonary hypertension Is this a current diagnosis for this admission?: Yes Plan: Secondary obstructive sleep apnea. Cardiology is following (8) JAYY (obstructive sleep apnea) Is this a current diagnosis for this admission?: Yes Plan: Continue Bipap as tolerated (9) Persistent atrial fibrillation Is this a current diagnosis for this admission?: Yes Plan: Stable. Continue Amiodarone (10) Anemia Qualifiers: Anemia type: iron deficiency Qualified Code(s): D64.9 - Anemia, unspecified Is this a current diagnosis for this admission?: Yes Plan: Patient was transfused 2 units of packed red blood cells last night. He developed chest pain and was noted to have a hemoglobin of 8 which is within his normal range. - Time Time Spent with patient: 25-34 minutes Total Critical Time (Minutes): 25 Medications reviewed and adjusted accordingly: Yes Anticipated discharge: Home with Homehealth - Inpatient Certification Based on my medical assessment, after consideration of the patient's comorbidities, presenting symptoms, or acuity I expect that the services needed warrant INPATIENT care.: Yes I certify that my determination is in accordance with my understanding of Medicare's requirements for reasonable and necessary INPATIENT services [42 CFR 412.3e].: Yes Medical Necessity: Failure to Improve With Outpatient Therapy, Significant Com orbidiites Make Outpatient Treatment Too Risky, Need For Continuous Telemetry Monitoring, Risk of Complication if Not Cared For in Hospital
[2018-10-30 14:36] LABS: CREATINE KINASE MB 2.2 ng/mL (<4.55); TROPONIN I 0.045 ng/mL
[2018-10-30] MEDS ORDERED: MORPHINE SULFATE 10 MG/ML INJ ONE (15:43)
[2018-10-30] MEDS ORDERED: DOBUTAMINE HCL/D5W 500 MG/250 ML RTUINJ IV ONE (15:44)
[2018-10-30 20:52] LABS: ABSOLUTE BASOPHILS # (AUTO) 0.1 10^3/uL (0.0-0.2); ABSOLUTE EOSINOPHILS # (AUTO) 0.1 10^3/uL (0.0-0.6); ABSOLUTE LYMPHOCYTES (AUTO) 1.2 10^3/uL (0.5-4.7); ABSOLUTE MONOCYTES (AUTO) 0.6 10^3/uL (0.1-1.4); ABSOLUTE NEUT (AUTO) 4.9 10^3/uL (1.7-8.2); BASOPHILS % (AUTO) 1.7 % (0-2); EOSINOPHILS % (AUTO) 1.1 % (0-6); HEMATOCRIT 31.5 % (37.9-51.0); HEMOGLOBIN 9.9 g/dL (13.5-17.0); LYMPHOCYTES % (AUTO) 17.9 % (13-45); MEAN CORPUSCULAR HEMOGLOBIN 22.2 pg (27.0-33.4); MEAN CORPUSCULAR HGB CONC 31.5 g/dL (32.0-36.0); MEAN CORPUSCULAR VOLUME 70 fl (80-97); MONOCYTES % (AUTO) 8.1 % (3-13); PLATELET COUNT 338 10^3/uL (150-450); RED BLOOD COUNT 4.48 10^6/uL (4.35-5.55); SEGMENTED NEUTROPHILS % (AUTO) 71.2 % (42-78); TOTAL CELLS COUNTED % (AUTO) 100 %; WHITE BLOOD COUNT 6.9 10^3/uL (4.0-10.5)
--- NOTE | 2018-10-30 21:26 | Progress Note ---
Provider Note Provider Note: CARDIOLOGY PROGRESS NOTE by Dr. Leena Padilla on 10/30/2018. 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 He was found to be anemic and the attending physician ordered 2 units of packed RBCs. The patient did receive 1, and will be receiving the second and then later. The patient still states that he is not putting out enough urine. He still feels bloated. He has no clear-cut anginal symptoms. There is no arrhythmias seen on the monitor. There is no firing of the AICD. His leg edema is still 1+-2-. He is using his BiPAP at night for sleep apnea. The patient in view of the patient not having very good diuresis transfer the patient down to the IMCU unit to start the patient on a dobutamine drip. This has been discussed with the patient. Patient is agreeable. Unfortunately due to the patient being on Coumadin with his INR being elevated, a central line would be at a higher risk of bleeding. Hence will cautiously start the dobutamine drip infusion via a peripheral line. Patient knows to notify the nurse if they should be any itching or pain or redness of the site of the infusion. PHYSICAL EXAMINATION: The patient is morbidly obese. In no acute distress. He is well-groomed. Selected Entries 10/30/18 10/30/18 14:50 15:10 Temperature 97.7 F Temperature Oral Source Pulse Rate 80 Respiratory 18 Rate Blood Pressure 134/80 H [Left] Blood Pressure 98 Mean [Left] Oxygen Delivery Nasal Cannula Method ( includes room air) Oxygen Flow 2 Rate HEAD: Is atraumatic normocephalic. EYES: Pupils are equal round regular reactive to light accommodation. Extraocular movements are normal. There is no conjunctival pallor. There is no scleral icterus. EARS: Tympanic membranes are intact. External auditory canals are clear. NOSE: There is no deviated nasal septum. There is no inflammation of the nasal mucous membrane. MOUTH: Mucous noted in the mouth are moist tongue is moist. There is no ulcers. There is no bleeding from the gums. THROAT: There is no redness of the oropharynx. There is no exudates. SKIN: There is no skin rashes or skin lesions. There is no particular ecchymosis. NECK: Is supple. There is JVD present carotids are equal there is no bruits. There is no lymphadenopathy. There is no goiter. There is no accessory muscle respiration use. Trachea central LUNGS: There is diminished air entry and prolonged expiration. On percussion there is hyperresonance. There is bibasilar rales of CHF. HEART: S1-S2 is heard. S1 is of normal intensity. There is no S3 gallop. There is no S4 gallop. There is systolic murmur left sternal border and the apex there is no rub. ABDOMEN: Is obese. Nontender. There is no hepatosplenomegaly. Bowel sounds are well heard. There is no tender areas of masses. EXTREMITIES: Femorals are deep. Femorals are diminished. Leg pulses are diminished. There is mild bilateral pedal edema present. There is no DVT or cellulitis. There is no calf tenderness. There is no sinus or clubbing. Capillary refill is normal. SEAT MENDER: The patient is conscious awake alert oriented x3 with no focal deficits. PSYCHIATRIC: The patient judgment insight are intact her affect is normal. 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 10/29/18 10/29/18 10/30/18 10:03 10:03 07:35 WBC 7.1 RBC 3.98 L Hgb 8.1 L Hct 27.0 L MCV 68 L MCH 20.4 L MCHC 30.1 L Plt Count 359 Seg Neutrophils % 79.3 H Lymphocytes % 9.3 L PT 33.0 H INR 3.05 Sodium 127.3 L Potassium 5.1 H Chloride 95 L Carbon Dioxide 21 L Anion Gap 11 BUN 43 H Creatinine 1.79 H Est GFR (Non-Af Amer) 40 L Glucose 169 H Calcium 9.1 Phosphorus 4.1 The patient's 24-hour intake is 950 mL. Output is 1425 mL. IMPRESSION/RECOMMENDATION: 1. Acute on chronic right and left ventricular systolic heart failure. Will try IV Demadex since the patient states that with the IV Lasix he has not urinated much. We will continue the patient beta-keke and LUIS inhibitor. 2. Ischemic cardiomyopathy with most likely severely repeat depressed LV ejection fraction. We will transfer the patient to [facility] and start the patient on dobutamine infusion, to see if this will improve the patient's urine output, and reduce the patient's volume retention. 3. Chronic kidney disease: Patient's GFR is improved to 40 mL. Nephrology consulted. 4. Coronary artery disease: History of prior MIs, and history of coronary bypass graft surgery, and history of stent placement. No anginal symptoms. So far the troponin I is negative. We will try to get the patient's records. 5. Paroxysmal atrial fibrillation: Would decrease the patient's amiodarone to 200 mg once a day. 6. Hypertension: Blood pressure well controlled. 7. Diabetes mellitus type 2 insulin-dependent: Continue patient's insulin, and check patient's blood sugars periodically. 8. Hyperlipidemia: Continue statin. 9. Obstructive sleep apnea: Would continue the patient's CPAP 10. Morbid obesity: Later would recommend patient strict diet, and weight loss program. 11. History of AICD placement: No recent firing of AICD. The last firing/shock by AICD was about a month ago as per patient's history. 12. Mildly elevated free T4,and abnormal liver function tests. We will decrease the patient's amiodarone to 200 mg PO daily. We will recheck the patient's free T4 in a couple of days. Medications reviewed. Medications adjusted and new medications added. Medical decision making is of high complexity. Management plan discussed with the attending physician on the case. We will obtain records from [facility]. Will follow.
[2018-10-30] MEDS: CEFTRIAXONE 1 GM/D5W RTU 1 GM/50 ML RTUPB IV SCH (22:32)
[2018-10-30] MEDS: ATORVASTATIN CALCIUM 40 MG TABLET PO SCH (22:32)
[2018-10-30] MEDS: WARFARIN SODIUM 3 MG TABLET PO SCH (22:32)
[2018-10-30] MEDS: MELATONIN 5 MG TABLET PO SCH (22:32)
[2018-10-30] MEDS: ZOLPIDEM TARTRATE 5 MG TABLET PO PRN (22:35)
[2018-10-30] MEDS: LORAZEPAM 0.5 MG TABLET PO PRN (22:35)
[2018-10-31 04:57] LABS: INTERNATIONAL RATION (INR) 2.98; PROTHROMBIN TIME 32.4 SEC (11.4-15.4)
[2018-10-31 05:10] LABS: ANION GAP 8 (5-19); BLOOD UREA NITROGEN 39 mg/dL (7-20); CARBON DIOXIDE 26 mmol/L (22-30); CHLORIDE 99 mmol/L (98-107); GLUCOSE 145 mg/dL (75-110); POTASSIUM 4.2 mmol/L (3.6-5.0); SODIUM 133.4 mmol/L (137-145)
[2018-10-31] MEDS: BUMETANIDE INJ/PF 1 MG/4 ML SDV IV SCH ×2 (05:56→15:32)
[2018-10-31] MEDS ORDERED: DOBUTAMINE HCL/D5W 500 MG/250 ML RTUINJ IV PRN (06:52)
--- NOTE | 2018-10-31 09:46 | PDOC PROGRESS REPORT ---
Subjective Progress Note for:: 10/31/18 Subjective:: THADDEUS DEY is a 53 year old male with history of multiple medical problems that will be mentioned below who presented to the emergency room with acute onset of worsening dyspnea with associated orthopnea and paroxysmal nocturnal dyspnea as well as lower extremity edema with dyspnea on exertion over the last 10 days. He denies any fever or chills. He has been having cough occasionally productive of green sputum and admitted to wheezing as well as n ausea without vomiting. He denies any dysuria or hematuria or flank pain. He did not have much urine output today. Upon presentation to the emergency room, vital signs were within normal. Labs revealed a hemoglobin of 8.4 hematocrit 27.5 with WBC of 7.3 and platelets of 434. The patient is not aware about history of anemia so does not know his baseline.. He is on Coumadin and INR is 2.07 with PT of 24.3 and PTT 45. CMP revealed sodium 134.3 and a BUN of 40 with a creatinine 1.78 with a blood glucose of 245. His AST was 78 and ALT 108. His BNP came back 8970 with a troponin I 0.051 and albumin of 3.4 with total protein of 6.8. His urinalysis showed large leukocyte esterase and 40 WBCs with 2 RBCs and trace bacteria. His EKG showed paced rhythm with a rate of 82. Chest x-ray revealed trace right pleural effusion and cardiomegaly. Patient went for a VQ scan to rule out PE and he could not tolerate the study therefore it was nondiagnostic. The patient was given form a gram of IV Zofran as well as 40 mg of IV Lasix and a gram of IV Rocephin. He will be admitted to telemetry bed for further evaluation and management. 10/31/2018. No acute events overnight. Patient still alternating between BiPAP and nasal cannula. On my encounter patient is wearing his BiPAP alert and oriented x3 in no apparent respiratory distress. Shortness of breath and bloating has improved since yesterday. Urine output has improved since being placed on dobutamine drip. Denying any fever, chest pain, nausea, vomiting, diarrhea, constipation or any urinary symptoms. Fluid balance -488. Urine output 2275. Systolic blood pressure low 100s, pulse 80s, respiratory rate 18, saturating 100% on 2 L nasal cannula. Reason For Visit: ACUTE ON CHRONIC CHF Physical Exam Vital Signs: Temp Pulse Resp BP Pulse Ox 97.5 F 80 18 107/72 100 10/31/18 03:16 10/31/18 09:00 10/31/18 03:16 10/31/18 09:00 10/31/18 03:16 Intake & Output 10/30/18 10/31/18 11/01/18 06:59 06:59 06:59 Intake Total 950 1787 Output Total 1420 8675 Balance -475 -488 Weight 133 kg 136.6 kg General appearance: PRESENT: morbidly obese Head exam: PRESENT: atraumatic, normocephalic Respiratory exam: PRESENT: decreased breath sounds. ABSENT: rales, rhonchi, wheezes Pulses: PRESENT: normal dorsalis pedis pul GI/Abdominal exam: PRESENT: distended, normal bowel sounds, soft. ABSENT: guarding, mass, organolmegaly, rebound, tenderness Extremities exam: PRESENT: +1 edema Neurological exam: PRESENT: alert, awake, oriented to person, oriented to place, oriented to time, oriented to situation, CN II-XII grossly intact. ABSENT: motor sensory deficit Results Laboratory Results: 10/30/18 20:26 10/31/18 04:30 10/30/18 10/30/18 10/31/18 03:02 20:26 04:30 WBC 6.9 RBC 4.48 Hgb 9.9 L Hct 31.5 L MCV 70 L MCH 22.2 L MCHC 31.5 L RDW 24.0 H Plt Count 338 Seg Neutrophils % 71.2 Lymphocytes % 17.9 Monocytes % 8.1 Eosinophils % 1.1 Basophils % 1.7 Absolute Neutrophils 4.9 Absolute Lymphocytes 1.2 Absolute Monocytes 0.6 Absolute Eosinophils 0.1 Absolute Basophils 0.1 Sodium 133.4 L Potassium 4.2 Chloride 99 Carbon Dioxide 26 Anion Gap 8 BUN 39 H Creatinine 1.62 H Est GFR ( Amer) 54 L Est GFR (Non-Af Amer) 44 L Glucose 145 H Calcium 9.0 Blood Type A POSITIVE Antibody Screen NEGATIVE 10/26/18 08:50 Blood Blood Culture - Final NO GROWTH IN 5 DAYS 10/26/18 07:10 Blood Blood Culture - Final NO GROWTH IN 5 DAYS 10/25/18 10/25/18 10/26/18 18:39 18:39 01:15 Creatine Kinase 109 96 CK-MB (CK-2) 2.61 Troponin I 0.051 NT-Pro-B Natriuret Pep 8970 H 10/26/18 10/26/18 10/26/18 01:15 07:10 07:10 Creatine Kinase 88 CK-MB (CK-2) 2.39 2.17 Troponin I 0.075 0.068 NT-Pro-B Natriuret Pep 10/26/18 10/26/18 10/27/18 13:48 13:48 07:24 Creatine Kinase 87 CK-MB (CK-2) 2.42 Troponin I 0.055 NT-Pro-B Natriuret Pep 9850 H 10/29/18 10/30/18 10/30/18 10:03 01:35 01:35 Creatine Kinase 46 L CK-MB (CK-2) 2.09 Troponin I 0.049 NT-Pro-B Natriuret Pep 4850 H 10/30/18 10/30/18 10/30/18 07:35 07:35 07:35 Creatine Kinase 59 CK-MB (CK-2) 2.41 Troponin I 0.054 NT-Pro-B Natriuret Pep 6600 H 10/30/18 10/30/18 13:35 13:35 Creatine Kinase 67 CK-MB (CK-2) 2.20 Troponin I 0.045 NT-Pro-B Natriuret Pep Impressions: Chest X-Ray 10/25/18 15:32 IMPRESSION: Trace right pleural effusion. No consolidation. Cardiomegaly. [facility] 10/25/18 19:44 IMPRESSION: Nondiagnostic exam. copyright 2011 [employer]- All Rights Reserved Abdomen CT 10/30/18 00:00 IMPRESSION: NO ACUTE CHANGES UNRUPTURED 4 CM ABDOMINAL AORTIC ANEURYSM 2 CM CYST VERSUS NODULE LEFT LOWER POLE KIDNEY Assessment and Plan - Diagnosis (1) Acute on chronic systolic (congestive) heart failure Is this a current diagnosis for this admission?: Yes Plan: Started on Demadex by cardiology. Has moderate improvement of her lower extremity edema. Moderate urine output. Shortness of breath and bloating has improved since yesterday. Moderately depressed left ventricular ejection fraction patient was transferred to [facility] as per cardiology recommendation and will start on dobutamine infusion and his urinary output and volume retention has improved since then. Continue dobutamine infusion, Demadex, LUIS, beta-keke. Cardiac diet, volume restriction. Monitor volume status. (2) Hypertension Qualifiers: Hypertension type: essential hypertension Qualified Code(s): I10 - Essential (primary) hypertension Is this a current diagnosis for this admission?: Yes Plan: Controlled. Continue LUIS, Demadex, beta-blockers. (3) Atrial fibrillation Qualifiers: Atrial fibrillation type: chronic Qualified Code(s): I48.2 - Chronic atrial fibrillation Is this a current diagnosis for this admission?: Yes Plan: Rate and rhythm controlled. Continue metoprolol, amiodarone. Continue warfarin with INR goal of 2-2.5. (4) Acute on chronic renal failure Is this a current diagnosis for this admission?: Yes Plan: Urine output has improved significantly since being started on Demadex and dobutamine. (5) JAYY (obstructive sleep apnea) Is this a current diagnosis for this admission?: Yes Plan: Continue Bipap as tolerated (6) Obesity, Class III, BMI 40-49.9 (morbid obesity) Is this a current diagnosis for this admission?: Yes Plan: Continue diet and lifestyle modification.
[2018-10-31] MEDS: INSULIN LISPRO 100 UNIT/ML 3 ML VIAL SUBCUT SCH ×4 (11:35→22:42)
[2018-10-31] MEDS: GABAPENTIN 300 MG CAPSULE PO SCH ×2 (11:36→22:43)
[2018-10-31] MEDS: CLOPIDOGREL BISULFATE 75 MG TABLET PO SCH (11:36)
[2018-10-31] MEDS: MULTIVITAMIN TABLET PO SCH (11:38)
[2018-10-31] MEDS: FERROUS SULFATE 325 MG TABLET PO SCH ×2 (11:38→19:40)
[2018-10-31] MEDS: SPIRONOLACTONE 25 MG TABLET PO SCH (11:38)
[2018-10-31] MEDS: POLYETHYLENE GLYCOL 3350 POWDER 17 GM/1 PACKET PO SCH (11:40)
[2018-10-31] MEDS: POTASSIUM CHLORIDE 10 MEQ CAPSULE.ER PO SCH (11:44)
[2018-10-31] MEDS: AMIODARONE HCL 200 MG TABLET PO SCH (11:46)
[2018-10-31] MEDS: MEXILETINE HCL 200 MG CAPSULE PO SCH ×3 (11:46→22:42)
[2018-10-31] MEDS: LISINOPRIL 5 MG TABLET PO SCH ×2 (11:47→22:43)
[2018-10-31] MEDS: METOPROLOL SUCCINATE 25 MG TAB.SR.24H PO SCH ×2 (11:49→22:43)
--- NOTE | 2018-10-31 12:51 | PDOC PROGRESS REPORT ---
Subjective Progress Note for:: 10/31/18 Subjective:: Patient is currently now in IMCU with IV dobutamine drip started by Dr. Loredo yesterday. He is diuresing much better and he feels much better as well. He admits that his breathing and overall is improving. His urine output yesterday was 2275 mL which is much improved and he was -475 mL with a intake and output balance. He does not have any new complaints. Reason For Visit: ACUTE ON CHRONIC CHF Physical Exam Vital Signs: Temp Pulse Resp BP Pulse Ox 99.0 F 66 18 102/52 L 97 10/31/18 10:58 10/31/18 10:58 10/31/18 10:58 10/31/18 10:58 10/31/18 10:58 Intake & Output 10/30/18 10/31/18 11/01/18 06:59 06:59 06:59 Intake Total 950 1787 480 Output Total 1425 2275 1200 Balance -475 -488 -720 Weight 133 kg 136.6 kg Exam: General appearance: PRESENT: no acute distress, cooperative, well-developed, well-nourished Head exam: PRESENT: atraumatic, normocephalic Eye exam: PRESENT: conjunctiva pale, PERRLA. ABSENT: scleral icterus Neck exam: ABSENT: JVD Respiratory exam: PRESENT: Diminished breath sounds. ABSENT: crackles, rales, rhonchi, unlabored, wheezes Cardiovascular exam: PRESENT: Regular rate rhythm, soft-+S1, +S2. ABSENT: diastolic murmur, systolic murmur GI/Abdominal exam: PRESENT: normal bowel sounds, soft. ABSENT: guarding, mass, tenderness Extremities exam: Improving grade 1 bilateral lower extremity edema Neurological exam: PRESENT: alert, awake, oriented to person, place and time. Skin exam: PRESENT: dry, warm, Results Laboratory Results: 10/30/18 20:26 10/31/18 04:30 10/30/18 10/30/18 10/31/18 03:02 20:26 04:30 WBC 6.9 RBC 4.48 Hgb 9.9 L Hct 31.5 L MCV 70 L MCH 22.2 L MCHC 31.5 L RDW 24.0 H Plt Count 338 Seg Neutrophils % 71.2 Lymphocytes % 17.9 Monocytes % 8.1 Eosinophils % 1.1 Basophils % 1.7 Absolute Neutrophils 4.9 Absolute Lymphocytes 1.2 Absolute Monocytes 0.6 Absolute Eosinophils 0.1 Absolute Basophils 0.1 Sodium 133.4 L Potassium 4.2 Chloride 99 Carbon Dioxide 26 Anion Gap 8 BUN 39 H Creatinine 1.62 H Est GFR ( Amer) 54 L Est GFR (Non-Af Amer) 44 L Glucose 145 H Calcium 9.0 Blood Type A POSITIVE Antibody Screen NEGATIVE 10/26/18 08:50 Blood Blood Culture - Final NO GROWTH IN 5 DAYS 10/26/18 07:10 Blood Blood Culture - Final NO GROWTH IN 5 DAYS 10/25/18 10/25/18 10/26/18 18:39 18:39 01:15 Creatine Kinase 109 96 CK-MB (CK-2) 2.61 Troponin I 0.051 NT-Pro-B Natriuret Pep 8970 H 10/26/18 10/26/18 10/26/18 01:15 07:10 07:10 Creatine Kinase 88 CK-MB (CK-2) 2.39 2.17 Troponin I 0.075 0.068 NT-Pro-B Natriuret Pep 10/26/18 10/26/18 10/27/18 13:48 13:48 07:24 Creatine Kinase 87 CK-MB (CK-2) 2.42 Troponin I 0.055 NT-Pro-B Natriuret Pep 9850 H 10/29/18 10/30/18 10/30/18 10:03 01:35 01:35 Creatine Kinase 46 L CK-MB (CK-2) 2.09 Troponin I 0.049 NT-Pro-B Natriuret Pep 4850 H 10/30/18 10/30/18 10/30/18 07:35 07:35 07:35 Creatine Kinase 59 CK-MB (CK-2) 2.41 Troponin I 0.054 NT-Pro-B Natriuret Pep 6600 H 10/30/18 10/30/18 13:35 13:35 Creatine Kinase 67 CK-MB (CK-2) 2.20 Troponin I 0.045 NT-Pro-B Natriuret Pep Impressions: Chest X-Ray 10/25/18 15:32 IMPRESSION: Trace right pleural effusion. No consolidation. Cardiomegaly. Lung Scan-VQ NM 10/25/18 19:44 IMPRESSION: Nondiagnostic exam. copyright 2010 [email or web address]- All Rights Reserved Abdomen CT 10/30/18 00:00 IMPRESSION: NO ACUTE CHANGES UNRUPTURED 4 CM ABDOMINAL AORTIC ANEURYSM 2 CM CYST VERSUS NODULE LEFT LOWER POLE KIDNEY Assessment & Plan - Diagnosis (1) Acute on chronic systolic (congestive) heart failure Is this a current diagnosis for this admission?: Yes Plan: Currently on IV dobutamine drip and IV Bumex. Dr. Padilla following the patient. (2) Ischemic cardiomyopathy Is this a current diagnosis for this admission?: Yes (3) CKD (chronic kidney disease) stage 3, GFR 30-59 ml/min Is this a current diagnosis for this admission?: Yes Plan: Kidney function currently improving with improvement of congestive heart failure. Continue current management. (4) Anemia Qualifiers: Anemia type: iron deficiency Qualified Code(s): D64.9 - Anemia, unspecified Is this a current diagnosis for this admission?: Yes Plan: This is also improved and likely partly due to hemodilution which is improving with diuresis. (5) Atrial fibrillation Qualifiers: Atrial fibrillation type: chronic Qualified Code(s): I48.2 - Chronic atrial fibrillation Is this a current diagnosis for this admission?: Yes (6) CAD (coronary artery disease) Is this a current diagnosis for this admission?: Yes (7) Hypertension Qualifiers: Hypertension type: essential hypertension Qualified Code(s): I10 - Essential (primary) hypertension Is this a current diagnosis for this admission?: Yes Plan: Controlled. (8) Hyponatremia Is this a current diagnosis for this admission?: Yes Plan: Improving with diuresis due to hypervolemic state. (9) JAYY (obstructive sleep apnea) Is this a current diagnosis for this admission?: Yes (10) Obesity, Class III, BMI 40-49.9 (morbid obesity) Is this a current diagnosis for this admission?: Yes (11) Pulmonary hypertension Is this a current diagnosis for this admission?: Yes (12) Type 2 diabetes mellitus Qualifiers: Diabetes mellitus lobsterman insulin use: with lobsterman use Diabetes mellitus complication status: with kidney complications Diabetes mellitus complication detail: with chronic kidney disease Chronic kidney disease stage: stage 3 (moderate) Qualified Code(s): E11.22 - Type 2 diabetes mellitus with diabetic chronic kidney disease; N18.3 - Chronic kidney disease, stage 3 (moderate); 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 coli currently on ceftriaxone intravenously. - Time Time with patient: 15-25 minutes
[2018-10-31] MEDS: ACETAMINOPHEN 325 MG TABLET PO PRN (15:30)
[2018-10-31] MEDS: WARFARIN SODIUM 3 MG TABLET PO SCH (22:42)
[2018-10-31] MEDS: ATORVASTATIN CALCIUM 40 MG TABLET PO SCH (22:43)
[2018-10-31] MEDS: MELATONIN 5 MG TABLET PO SCH (22:43)
[2018-10-31] MEDS: ZOLPIDEM TARTRATE 5 MG TABLET PO PRN (22:45)
[2018-10-31] MEDS: CEFTRIAXONE 1 GM/D5W RTU 1 GM/50 ML RTUPB IV SCH (22:54)
[2018-11-01 05:27] LABS: ABSOLUTE BASOPHILS # (AUTO) 0.1 10^3/uL (0.0-0.2); ABSOLUTE EOSINOPHILS # (AUTO) 0.1 10^3/uL (0.0-0.6); ABSOLUTE LYMPHOCYTES (AUTO) 0.9 10^3/uL (0.5-4.7); ABSOLUTE MONOCYTES (AUTO) 0.7 10^3/uL (0.1-1.4); ABSOLUTE NEUT (AUTO) 4.7 10^3/uL (1.7-8.2); BASOPHILS % (AUTO) 1.4 % (0-2); HEMATOCRIT 32.4 % (37.9-51.0); HEMOGLOBIN 10.1 g/dL (13.5-17.0); LYMPHOCYTES % (AUTO) 13.7 % (13-45); MEAN CORPUSCULAR HEMOGLOBIN 22.2 pg (27.0-33.4); MEAN CORPUSCULAR HGB CONC 31.3 g/dL (32.0-36.0); MEAN CORPUSCULAR VOLUME 71 fl (80-97); MONOCYTES % (AUTO) 10.5 % (3-13); PLATELET COUNT 304 10^3/uL (150-450); RED BLOOD COUNT 4.57 10^6/uL (4.35-5.55); RED CELL DISTRIBUTION WIDTH 24.4 % (11.5-14.0); SEGMENTED NEUTROPHILS % (AUTO) 72.4 % (42-78); TOTAL CELLS COUNTED % (AUTO) 100 %; WHITE BLOOD COUNT 6.5 10^3/uL (4.0-10.5)
[2018-11-01 05:41] LABS: ALANINE AMINOTRANSFERASE 95 U/L (21-72); ALBUMIN 3.2 g/dL (3.5-5.0); ALKALINE PHOSPHATASE 106 U/L (38-126); ANION GAP 11 (5-19); ASPARTATE AMINO TRANSFERASE 97 U/L (17-59); BILIRUBIN,DIRECT 0.4 mg/dL (0.0-0.4); BILIRUBIN,TOTAL 0.6 mg/dL (0.2-1.3); BLOOD UREA NITROGEN 37 mg/dL (7-20); CALCIUM 8.9 mg/dL (8.4-10.2); CARBON DIOXIDE 23 mmol/L (22-30); CHLORIDE 99 mmol/L (98-107); GLUCOSE 135 mg/dL (75-110); POTASSIUM 4.6 mmol/L (3.6-5.0); SODIUM 132.8 mmol/L (137-145); TOTAL PROTEIN 6.5 g/dL (6.3-8.2)
[2018-11-01 05:42] LABS: INTERNATIONAL RATION (INR) 3.95; PROTHROMBIN TIME 40.4 SEC (11.4-15.4)
[2018-11-01 05:49] LABS: ANISOCYTOSIS 3+; BURR CELLS 1+; HYPOCHROMASIA 2+; PLATELET COMMENT ADEQUATE; POIKILOCYTOSIS 2+; POLYCHROMASIA 2+; TEAR DROP CELLS 1+
[2018-11-01] MEDS: INSULIN LISPRO 100 UNIT/ML 3 ML VIAL SUBCUT SCH ×4 (08:14→22:53)
[2018-11-01] MEDS: FERROUS SULFATE 325 MG TABLET PO SCH ×3 (08:19→16:10)
[2018-11-01] MEDS: POTASSIUM CHLORIDE 10 MEQ CAPSULE.ER PO SCH (09:39)
[2018-11-01] MEDS: CLOPIDOGREL BISULFATE 75 MG TABLET PO SCH (09:41)
[2018-11-01] MEDS: MULTIVITAMIN TABLET PO SCH (09:41)
[2018-11-01] MEDS: AMIODARONE HCL 200 MG TABLET PO SCH (09:41)
[2018-11-01] MEDS: GABAPENTIN 300 MG CAPSULE PO SCH ×2 (09:41→22:52)
[2018-11-01] MEDS: POLYETHYLENE GLYCOL 3350 POWDER 17 GM/1 PACKET PO SCH (09:41)
[2018-11-01] MEDS: METOPROLOL SUCCINATE 25 MG TAB.SR.24H PO SCH ×2 (09:41→22:52)
[2018-11-01] MEDS: MEXILETINE HCL 200 MG CAPSULE PO SCH ×3 (09:41→17:38)
[2018-11-01] MEDS: LISINOPRIL 5 MG TABLET PO SCH ×2 (09:42→22:52)
[2018-11-01] MEDS: SPIRONOLACTONE 25 MG TABLET PO SCH (09:42)
--- NOTE | 2018-11-01 11:52 | PDOC PROGRESS REPORT ---
Subjective Progress Note for:: 11/01/18 Subjective:: THADDEUS DEY is a 53 year old male with history of multiple medical problems that will be mentioned below who presented to the emergency room with acute onset of worsening dyspnea with associated orthopnea and paroxysmal nocturnal dyspnea as well as lower extremity edema with dyspnea on exertion over the last 10 days. He denies any fever or chills. He has been having cough occasionally productive of green sputum and admitted to wheezing as well as n ausea without vomiting. He denies any dysuria or hematuria or flank pain. He did not have much urine output today. Upon presentation to the emergency room, vital signs were within normal. Labs revealed a hemoglobin of 8.4 hematocrit 27.5 with WBC of 7.3 and platelets of 434. The patient is not aware about history of anemia so does not know his baseline.. He is on Coumadin and INR is 2.07 with PT of 24.3 and PTT 45. CMP revealed sodium 134.3 and a BUN of 40 with a creatinine 1.78 with a blood glucose of 245. His AST was 78 and ALT 108. His BNP came back 8970 with a troponin I 0.051 and albumin of 3.4 with total protein of 6.8. His urinalysis showed large leukocyte esterase and 40 WBCs with 2 RBCs and trace bacteria. His EKG showed paced rhythm with a rate of 82. Chest x-ray revealed trace right pleural effusion and cardiomegaly. Patient went for a VQ scan to rule out PE and he could not tolerate the study therefore it was nondiagnostic. The patient was given form a gram of IV Zofran as well as 40 mg of IV Lasix and a gram of IV Rocephin. He will be admitted to telemetry bed for further evaluation and management. 10/31/2018. No acute events overnight. Patient still alternating between BiPAP and nasal cannula. On my encounter patient is wearing his BiPAP alert and oriented x3 in no apparent respiratory distress. Shortness of breath and bloating has improved since yesterday. Urine output has improved since being placed on dobutamine drip. Denying any fever, chest pain, nausea, vomiting, diarrhea, constipation or any urinary symptoms. Fluid balance -488. Urine output 2275. Systolic blood pressure low 100s, pulse 80s, respiratory rate 18, saturating 100% on 2 L nasal cannula. 11/01/2018. No acute events overnight. Patient is off of dobutamine drip since last night. Still complaining of mild abdominal bloating otherwise no new complaints. Lower extremity edema has improved and patient has having good diuresis. Denies any fever, chills, nausea, vomiting, diarrhea, constipation, chest pain. Reason For Visit: ACUTE ON CHRONIC CHF Physical Exam Vital Signs: Temp Pulse Resp BP Pulse Ox 97.5 F 40 L 16 117/66 100 11/01/18 07:20 11/01/18 07:20 11/01/18 07:20 11/01/18 07:20 11/01/18 07:20 Intake & Output 10/31/18 11/01/18 11/02/18 06:59 06:59 06:59 Intake Total 1787 752 Output Total 2270 3800 Balance -488 -1748 Weight 136.6 kg 134.5 kg General appearance: PRESENT: no acute distress, obese, well-developed, well- nourished Respiratory exam: PRESENT: clear to auscultation rakesh. ABSENT: rales, rhonchi, wheezes Cardiovascular exam: PRESENT: RRR. ABSENT: diastolic murmur, rubs, systolic murmur GI/Abdominal exam: PRESENT: distended, normal bowel sounds, soft. ABSENT: mass, organolmegaly, rebound, tenderness Extremities exam: PRESENT: +1 edema Neurological exam: PRESENT: alert, awake, oriented to person, oriented to place, oriented to time, oriented to situation, CN II-XII grossly intact. ABSENT: motor sensory deficit Results Laboratory Results: 11/01/18 05:09 11/01/18 05:09 11/01/18 11/01/18 05:09 05:09 WBC 6.5 RBC 4.57 Hgb 10.1 L Hct 32.4 L MCV 71 L MCH 22.2 L MCHC 31.3 L RDW 24.4 H Plt Count 304 Seg Neutrophils % 72.4 Lymphocytes % 13.7 Monocytes % 10.5 Eosinophils % 2.0 Basophils % 1.4 Absolute Neutrophils 4.7 Absolute Lymphocytes 0.9 Absolute Monocytes 0.7 Absolute Eosinophils 0.1 Absolute Basophils 0.1 Sodium 132.8 L Potassium 4.6 Chloride 99 Carbon Dioxide 23 Anion Gap 11 BUN 37 H Creatinine 1.46 H Est GFR ( Amer) > 60 Est GFR (Non-Af Amer) 50 L Glucose 135 H Calcium 8.9 Magnesium 2.4 H Total Bilirubin 0.6 AST 97 H ALT 95 H Alkaline Phosphatase 106 Total Protein 6.5 Albumin 3.2 L 10/26/18 08:50 Blood Blood Culture - Final NO GROWTH IN 5 DAYS 10/25/18 10/25/18 10/26/18 18:39 18:39 01:15 Creatine Kinase 109 96 CK-MB (CK-2) 2.61 Troponin I 0.051 NT-Pro-B Natriuret Pep 8970 H 10/26/18 10/26/18 10/26/18 01:15 07:10 07:10 Creatine Kinase 88 CK-MB (CK-2) 2.39 2.17 Troponin I 0.075 0.068 NT-Pro-B Natriuret Pep 10/26/18 10/26/18 10/27/18 13:48 13:48 07:24 Creatine Kinase 87 CK-MB (CK-2) 2.42 Troponin I 0.055 NT-Pro-B Natriuret Pep 9850 H 10/29/18 10/30/18 10/30/18 10:03 01:35 01:35 Creatine Kinase 46 L CK-MB (CK-2) 2.09 Troponin I 0.049 NT-Pro-B Natriuret Pep 4850 H 10/30/18 10/30/18 10/30/18 07:35 07:35 07:35 Creatine Kinase 59 CK-MB (CK-2) 2.41 Troponin I 0.054 NT-Pro-B Natriuret Pep 6600 H 10/30/18 10/30/18 13:35 13:35 Creatine Kinase 67 CK-MB (CK-2) 2.20 Troponin I 0.045 NT-Pro-B Natriuret Pep Impressions: Chest X-Ray 10/25/18 15:32 IMPRESSION: Trace right pleural effusion. No consolidation. Cardiomegaly. Lung Scan-VQ NM 10/25/18 19:44 IMPRESSION: Nondiagnostic exam. copyright 2011 [employer]- All Rights Reserved Abdomen CT 10/30/18 00:00 IMPRESSION: NO ACUTE CHANGES UNRUPTURED 4 CM ABDOMINAL AORTIC ANEURYSM 2 CM CYST VERSUS NODULE LEFT LOWER POLE KIDNEY Assessment and Plan - Diagnosis (1) Acute on chronic systolic (congestive) heart failure Is this a current diagnosis for this admission?: Yes Plan: Has moderate improvement of her lower extremity edema. Moderate urine output. Shortness of breath and bloating has improved since yesterday. Moderately depressed left ventricular ejection fraction patient was transferred to [facility] as per cardiology recommendation and was a started on start on dobutamine infusion and his urinary output and volume retention has improved since then. Dobutamine infusion DC'd since yesterday. Continue Demadex, LUIS, beta-keke. Cardiac diet, volume restriction. Monitor volume status. (2) Hypertension Qualifiers: Hypertension type: essential hypertension Qualified Code(s): I10 - Essential (primary) hypertension Is this a current diagnosis for this admission?: Yes Plan: Controlled. Continue LUIS, Demadex, beta-blockers. SBP low 100s, respiratory rate 16 saturating 100% on 2 L (3) Atrial fibrillation Qualifiers: Atrial fibrillation type: chronic Qualified Code(s): I48.2 - Chronic atrial fibrillation Is this a current diagnosis for this admission?: Yes Plan: Rate and rhythm controlled. Continue metoprolol, amiodarone. Continue warfarin with INR goal of 2-2.5. (4) Acute on chronic renal failure Is this a current diagnosis for this admission?: Yes Plan: Improving. Creatinine trending down. Urine output has improved significantly since being started on Demadex and dobutamine. Urine output 2500, fluid balance -1748. (5) JAYY (obstructive sleep apnea) Is this a current diagnosis for this admission?: Yes Plan: Continue Bipap as tolerated (6) Obesity, Class III, BMI 40-49.9 (morbid obesity) Is this a current diagnosis for this admission?: Yes Plan: Continue diet and lifestyle modification. (7) Anemia Qualifiers: Anemia type: iron deficiency Is this a current diagnosis for this admission?: Yes Plan: Status post 2 PRBC transfusion since admission. Iron panel suggestive of iron deficiency anemia. Start on ferrous sulfate supplement. H&H trending up and improving. (8) UTI (urinary tract infection) Qualifiers: Urinary tract infection type: acute cystitis Hematuria presence: without hematuria Qualified Code(s): N30.00 - Acute cystitis without hematuria Is this a current diagnosis for this admission?: Yes Plan: Urine culture positive for E. coli sensitive to Rocephin. Completed a course of IV ceftriaxone. Asymptomatic. (9) Diabetes Qualifiers: Diabetes mellitus type: type 2 Is this a current diagnosis for this admission?: No Plan: Not controlled. Hemoglobin A1c 8%. Continue long-acting insulin, pre-meal insulin, sliding scale insulin, diabetic diet. Adjust meds as needed.
[2018-11-01] MEDS: LORAZEPAM 0.5 MG TABLET PO PRN ×2 (12:48→22:56)
[2018-11-01] MEDS ORDERED: GLUCAGON,HUMAN RECOMB 1 MG INJ IM PRN (12:58)
[2018-11-01] MEDS ORDERED: DEXTROSE 40% GEL 15 GM TUBE PO PRN ×2 (12:58)
[2018-11-01] MEDS ORDERED: DEXTROSE 50%-WATER 25 GM/50 ML DISP.SYRIN IV PRN ×2 (12:58)
[2018-11-01] MEDS ORDERED: TORSEMIDE 20 MG TABLET PO SCH (13:00)
[2018-11-01] MEDS ORDERED: BUMETANIDE 1 MG TABLET ONE (17:26)
[2018-11-01] MEDS ORDERED: MEXILETINE HCL 200 MG CAPSULE ONE (17:27)
[2018-11-01] MEDS: TORSEMIDE 20 MG TABLET PO SCH (17:38)
[2018-11-01] MEDS: BUMETANIDE 1 MG TABLET PO SCH (17:38)
[2018-11-01] MEDS ORDERED: LACTULOSE SYRUP 20 GM/30 ML UDCUP PO ONE (21:22)
[2018-11-01] MEDS ORDERED: INSULIN GLARGINE,HUM.REC.ANLOG 1,000 UNIT/10 ML VIAL SUBCUT SCH (22:00)
[2018-11-01] MEDS ORDERED: WARFARIN SODIUM 3 MG TABLET PO SCH (22:00)
--- NOTE | 2018-11-01 22:28 | RADIOLOGY REPORT (SQ) ---
EXAM DESCRIPTION: XR CHEST 2 VIEWS COMPLETED DATE/TME: 11/01/2018 00:00 CLINICAL HISTORY: 53 years, Male, sob COMPARISON: None. NUMBER OF VIEWS: TECHNIQUE: LIMITATIONS: None. FINDINGS: There is cardiomegaly. There is pulmonary vascular congestion. There are probable small bilateral pleural effusions. There is evidence of prior thoracic surgery. There is a left-sided AICD. IMPRESSION: Cardiomegaly with pulmonary vascular congestion and probable small bilateral pleural effusions. copyright 2010 [email or web address]- All Rights Reserved
[2018-11-01] MEDS: MELATONIN 5 MG TABLET PO SCH (22:52)
[2018-11-01] MEDS: ATORVASTATIN CALCIUM 40 MG TABLET PO SCH (22:53)
--- NOTE | 2018-11-01 22:53 | Progress Note ---
Provider Note Provider Note: CARDIOLOGY PROGRESS NOTE by Dr. Leena Padilla on 11/01/2018 SUBJECTIVE: The patient still states that he is short of breath, but appears to be comfortable. He is sitting up in the chair. He does have orthopnea. His leg edema is much improved and there is only mild there is no PND. He has no chest pain or discomfort. There is no arrhythmias seen on the monitor. There is no recurrence of atrial fibrillation. There is no ventricular arrhythmia seen. There is no firing of the AICD. There is no bleeding on Coumadin his INR is slightly elevated and hence will hold the Coumadin tonight. He has no TIA CVA symptoms. Last night the patient's blood pressure dropped to 80, and hence his IV Bumex and his dobutamine drip was discontinued. At present his blood pressure is much improved. SUBJECTIVE: The patient is morbidly obese. In no acute distress. He is well- groomed. Selected Entries 11/01/18 11:35 Temperature 97.3 F Temperature Axillary Source Pulse Rate 86 Respiratory 20 Rate Blood Pressure 113/66 Blood Pressure 81 Mean BP Location Left Arm BP Position Supine O2 Sat by Pulse 93 Oximetry Oxygen Delivery Bipap Method HEAD: Is atraumatic normocephalic. EYES: Pupils are equal round regular reactive to light accommodation. Extraocular movements are normal. There is no conjunctival pallor. There is no scleral icterus. EARS: Tympanic membranes are intact. External auditory canals are clear. NOSE: There is no deviated nasal septum. There is no inflammation of the nasal mucous membrane. MOUTH: Mucous noted in the mouth are moist tongue is moist. There is no ulcers. There is no bleeding from the gums. THROAT: There is no redness of the oropharynx. There is no exudates. SKIN: There is no skin rashes or skin lesions. There is no particular ecchymosis. NECK: Is supple. There is JVD present carotids are equal there is no bruits. There is no lymphadenopathy. There is no goiter. There is no accessory muscle respiration use. Trachea central LUNGS: There is diminished air entry and prolonged expiration. On percussion there is hyperresonance. There is bibasilar rales of CHF. HEART: S1-S2 is heard. S1 is of normal intensity. There is no S3 gallop. There is no S4 gallop. There is systolic murmur left sternal border and the apex there is no rub. ABDOMEN: Is obese. Nontender. There is no hepatosplenomegaly. Bowel sounds are well heard. There is no tender areas of masses. EXTREMITIES: Femorals are deep. Femorals are diminished. Leg pulses are diminished. There is mild bilateral pedal edema present. There is no DVT or cellulitis. There is no calf tenderness. There is no sinus or clubbing. Capillary refill is normal. FARM HELPER: The patient is conscious awake alert oriented x3 with no focal deficits. PSYCHIATRIC: The patient judgment insight are intact her affect is normal. 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 11/01/18 11/01/18 11/01/18 05:09 05:09 05:09 WBC 6.5 RBC 4.57 Hgb 10.1 L Hct 32.4 L MCV 71 L MCH 22.2 L MCHC 31.3 L Plt Count 304 PT 40.4 H INR 3.95 Sodium 132.8 L Potassium 4.6 Chloride 99 Carbon Dioxide 23 Anion Gap 11 BUN 37 H Creatinine 1.46 H Est GFR (Non-Af Amer) 50 L Glucose 135 H Calcium 8.9 Magnesium 2.4 H Total Bilirubin 0.6 Direct Bilirubin 0.4 Neonat Total Bilirubin Not Reportable Neonat Direct Bilirubin Not Reportable Neonat Indirect Bili Not Reportable AST 97 H ALT 95 H Alkaline Phosphatase 106 Total Protein 6.5 Albumin 3.2 L The patient's 24-hour intake is 752 mL. Output is 2500 mL. IMPRESSION/RECOMMENDATION: 1. Acute on chronic right and left ventricular systolic heart failure. Will add 1 mg of Bumex p.o. now along with the patient's Demadex. Demadex since the patient states that with the IV Lasix he has not urinated much. We will continue the patient beta-keke and LUIS inhibitor. 2. Ischemic cardiomyopathy with most likely severely repeat depressed LV ejection fraction. We will transfer the patient to [facility] and start the patient on dobutamine infusion, to see if this will improve the patient's urine output, and reduce the patient's volume retention. 3. Chronic kidney disease: Patient's GFR is improved to 40 mL. Nephrology consulted. 4. Coronary artery disease: History of prior MIs, and history of coronary bypass graft surgery, and history of stent placement. No anginal symptoms. So far the troponin I is negative. We will try to get the patient's records. 5. Paroxysmal atrial fibrillation: Would decrease the patient's amiodarone to 200 mg once a day. 6. Hypertension: Blood pressure well controlled. 7. Diabetes mellitus type 2 insulin-dependent: Continue patient's insulin, and check patient's blood sugars periodically. 8. Hyperlipidemia: Continue statin. 9. Obstructive sleep apnea: Would continue the patient's CPAP 10. Morbid obesity: Later would recommend patient strict diet, and weight loss program. 11. History of AICD placement: No recent firing of AICD. The last firing/shock by AICD was about a month ago as per patient's history. 12. Mildly elevated free T4,and abnormal liver function tests. The patient is orthostatic. Will be started a small dose once her liver function tests become normal. Medications reviewed medications adjusted. Medical management discussed with attending physician on the case. Condition making is still of high complexity. 40 minutes spent on this patient more than 50% of time spent in direct patient care.
[2018-11-02 05:36] LABS: ABSOLUTE BASOPHILS # (AUTO) 0.1 10^3/uL (0.0-0.2); ABSOLUTE LYMPHOCYTES (AUTO) 1.2 10^3/uL (0.5-4.7); ABSOLUTE MONOCYTES (AUTO) 0.7 10^3/uL (0.1-1.4); BASOPHILS % (AUTO) 1.4 % (0-2); EOSINOPHILS % (AUTO) 0.5 % (0-6); HEMOGLOBIN 10.9 g/dL (13.5-17.0); LYMPHOCYTES % (AUTO) 15.1 % (13-45); MEAN CORPUSCULAR HEMOGLOBIN 22.2 pg (27.0-33.4); MEAN CORPUSCULAR HGB CONC 31.2 g/dL (32.0-36.0); MEAN CORPUSCULAR VOLUME 71 fl (80-97); MONOCYTES % (AUTO) 9.1 % (3-13); PLATELET COUNT 345 10^3/uL (150-450); RED BLOOD COUNT 4.91 10^6/uL (4.35-5.55); RED CELL DISTRIBUTION WIDTH 25.1 % (11.5-14.0); SEGMENTED NEUTROPHILS % (AUTO) 73.9 % (42-78); TOTAL CELLS COUNTED % (AUTO) 100 %; WHITE BLOOD COUNT 8.1 10^3/uL (4.0-10.5)
[2018-11-02 05:41] LABS: INTERNATIONAL RATION (INR) 3.27; PROTHROMBIN TIME 34.8 SEC (11.4-15.4)
[2018-11-02 05:58] LABS: ANISOCYTOSIS 3+; BURR CELLS SLIGHT; HYPOCHROMASIA 3+; OVALOCYTES 2+; PLATELET COMMENT ADEQUATE; POIKILOCYTOSIS SLIGHT; POLYCHROMASIA SLIGHT
[2018-11-02 06:07] LABS: FREE T3 4.42 pg/mL (2.77-5.27); FREE T4 (FREE THYROXINE) 3.63 ng/dL (0.78-2.19)
[2018-11-02 06:21] LABS: THYROID STIMULATING HORMONE 0.21 uIU/mL (0.47-4.68)
[2018-11-02 06:58] LABS: ALANINE AMINOTRANSFERASE 86 U/L (21-72); ALBUMIN 3.9 g/dL (3.5-5.0); ALKALINE PHOSPHATASE 119 U/L (38-126); ANION GAP 11 (5-19); ASPARTATE AMINO TRANSFERASE 72 U/L (17-59); BILIRUBIN,DIRECT 0.5 mg/dL (0.0-0.4); BLOOD UREA NITROGEN 34 mg/dL (7-20); CALCIUM 9.6 mg/dL (8.4-10.2); CARBON DIOXIDE 20 mmol/L (22-30); CHLORIDE 101 mmol/L (98-107); GLUCOSE 137 mg/dL (75-110); POTASSIUM 4.7 mmol/L (3.6-5.0); SODIUM 132.2 mmol/L (137-145); TOTAL PROTEIN 7.4 g/dL (6.3-8.2)
[2018-11-02] MEDS: INSULIN LISPRO 100 UNIT/ML 3 ML VIAL SUBCUT SCH ×4 (07:42→21:44)
[2018-11-02] MEDS: FERROUS SULFATE 325 MG TABLET PO SCH ×3 (07:42→16:10)
[2018-11-02] MEDS: POLYETHYLENE GLYCOL 3350 POWDER 17 GM/1 PACKET PO SCH (09:52)
[2018-11-02] MEDS: MULTIVITAMIN TABLET PO SCH (09:52)
[2018-11-02] MEDS: AMIODARONE HCL 200 MG TABLET PO SCH (09:52)
[2018-11-02] MEDS: BUMETANIDE 1 MG TABLET PO SCH (09:53)
[2018-11-02] MEDS: CLOPIDOGREL BISULFATE 75 MG TABLET PO SCH (09:53)
[2018-11-02] MEDS: LISINOPRIL 5 MG TABLET PO SCH ×2 (09:53→21:38)
[2018-11-02] MEDS: SPIRONOLACTONE 25 MG TABLET PO SCH (09:53)
[2018-11-02] MEDS: METOPROLOL SUCCINATE 25 MG TAB.SR.24H PO SCH ×2 (09:53→21:38)
[2018-11-02] MEDS: TORSEMIDE 20 MG TABLET PO SCH ×2 (09:53→17:20)
[2018-11-02] MEDS: INSULIN GLARGINE,HUM.REC.ANLOG 1,000 UNIT/10 ML VIAL SUBCUT SCH (09:53)
[2018-11-02] MEDS: GABAPENTIN 300 MG CAPSULE PO SCH ×2 (09:53→21:44)
[2018-11-02] MEDS: POTASSIUM CHLORIDE 10 MEQ CAPSULE.ER PO SCH (09:54)
[2018-11-02] MEDS ORDERED: INSULIN GLARGINE,HUM.REC.ANLOG 1,000 UNIT/10 ML VIAL (PYX) SUBCUT SCH ×2 (10:00)
[2018-11-02] MEDS ORDERED: INSULIN GLARGINE,HUM.REC.ANLOG 1,000 UNIT/10 ML VIAL SUBCUT SCH (10:00)
--- NOTE | 2018-11-02 11:01 | PDOC PROGRESS REPORT ---
Subjective Progress Note for:: 11/02/18 Subjective:: THADDEUS DEY is a 53 year old male with history of multiple medical problems that will be mentioned below who presented to the emergency room with acute onset of worsening dyspnea with associated orthopnea and paroxysmal nocturnal dyspnea as well as lower extremity edema with dyspnea on exertion over the last 10 days. He denies any fever or chills. He has been having cough occasionally productive of green sputum and admitted to wheezing as well as n ausea without vomiting. He denies any dysuria or hematuria or flank pain. He did not have much urine output today. Upon presentation to the emergency room, vital signs were within normal. Labs revealed a hemoglobin of 8.4 hematocrit 27.5 with WBC of 7.3 and platelets of 434. The patient is not aware about history of anemia so does not know his baseline.. He is on Coumadin and INR is 2.07 with PT of 24.3 and PTT 45. CMP revealed sodium 134.3 and a BUN of 40 with a creatinine 1.78 with a blood glucose of 245. His AST was 78 and ALT 108. His BNP came back 8970 with a troponin I 0.051 and albumin of 3.4 with total protein of 6.8. His urinalysis showed large leukocyte esterase and 40 WBCs with 2 RBCs and trace bacteria. His EKG showed paced rhythm with a rate of 82. Chest x-ray revealed trace right pleural effusion and cardiomegaly. Patient went for a VQ scan to rule out PE and he could not tolerate the study therefore it was nondiagnostic. The patient was given form a gram of IV Zofran as well as 40 mg of IV Lasix and a gram of IV Rocephin. He will be admitted to telemetry bed for further evaluation and management. 10/31/2018. No acute events overnight. Patient still alternating between BiPAP and nasal cannula. On my encounter patient is wearing his BiPAP alert and oriented x3 in no apparent respiratory distress. Shortness of breath and bloating has improved since yesterday. Urine output has improved since being placed on dobutamine drip. Denying any fever, chest pain, nausea, vomiting, diarrhea, constipation or any urinary symptoms. Fluid balance -488. Urine output 2275. Systolic blood pressure low 100s, pulse 80s, respiratory rate 18, saturating 100% on 2 L nasal cannula. 11/01/2018. No acute events overnight. Patient is off of dobutamine drip since last night. Still complaining of mild abdominal bloating otherwise no new complaints. Lower extremity edema has improved and patient has having good diuresis. Denies any fever, chills, nausea, vomiting, diarrhea, constipation, chest pain. 11/02/2018. No acute events overnight. Abdominal bloating and shortness of breath has improved. Patient had large bowel movement last night. He is p.o. tolerant. On my encounter resting in bed while using his BiPAP, easily arousable uncooperative. Denies any fever, chills, nausea, vomiting, diarrhea, constipation or any urinary symptoms. Reason For Visit: ACUTE ON CHRONIC CHF Physical Exam Vital Signs: Temp Pulse Resp BP Pulse Ox 98.4 F 40 L 16 101/64 94 11/01/18 23:38 11/02/18 07:23 11/02/18 07:23 11/02/18 07:23 11/02/18 07:23 Intake & Output 11/01/18 11/02/18 11/03/18 06:59 06:59 06:59 Intake Total 752 840 Output Total 4291 1475 Balance -3187 -042 Weight 134.5 kg 136 kg Results Laboratory Results: 11/02/18 05:21 11/02/18 05:21 11/02/18 11/02/18 11/02/18 05:21 05:21 05:21 WBC 8.1 RBC 4.91 Hgb 10.9 L Hct 35.0 L MCV 71 L MCH 22.2 L MCHC 31.2 L RDW 25.1 H Plt Count 345 Seg Neutrophils % 73.9 Lymphocytes % 15.1 Monocytes % 9.1 Eosinophils % 0.5 Basophils % 1.4 Absolute Neutrophils 6.0 Absolute Lymphocytes 1.2 Absolute Monocytes 0.7 Absolute Eosinophils 0.0 Absolute Basophils 0.1 Sodium 132.2 L Potassium 4.7 Chloride 101 Carbon Dioxide 20 L Anion Gap 11 BUN 34 H Creatinine 1.46 H Est GFR ( Amer) > 60 Est GFR (Non-Af Amer) 50 L Glucose 137 H Calcium 9.6 Magnesium 2.5 H Total Bilirubin 1.0 AST 72 H ALT 86 H Alkaline Phosphatase 119 Total Protein 7.4 Albumin 3.9 TSH 0.21 L Free T4 3.63 H Free T3 pg/mL 4.42 03/23/19 03/23/19 03/24/19 18:39 18:39 01:15 Creatine Kinase 109 96 CK-MB (CK-2) 2.61 Troponin I 0.051 NT-Pro-B Natriuret Pep 8970 H 10/26/18 10/26/18 10/26/18 01:15 07:10 07:10 Creatine Kinase 88 CK-MB (CK-2) 2.39 2.17 Troponin I 0.075 0.068 NT-Pro-B Natriuret Pep 10/26/18 10/26/18 10/27/18 13:48 13:48 07:24 Creatine Kinase 87 CK-MB (CK-2) 2.42 Troponin I 0.055 NT-Pro-B Natriuret Pep 9850 H 10/29/18 10/30/18 10/30/18 10:03 01:35 01:35 Creatine Kinase 46 L CK-MB (CK-2) 2.09 Troponin I 0.049 NT-Pro-B Natriuret Pep 4850 H 10/30/18 10/30/18 10/30/18 07:35 07:35 07:35 Creatine Kinase 59 CK-MB (CK-2) 2.41 Troponin I 0.054 NT-Pro-B Natriuret Pep 6600 H 10/30/18 10/30/18 13:35 13:35 Creatine Kinase 67 CK-MB (CK-2) 2.20 Troponin I 0.045 NT-Pro-B Natriuret Pep Impressions: Lung Scan-VQ NM 10/25/18 19:44 IMPRESSION: Nondiagnostic exam. copyright 2011 [employer]- All Rights Reserved Abdomen CT 10/30/18 00:00 IMPRESSION: NO ACUTE CHANGES UNRUPTURED 4 CM ABDOMINAL AORTIC ANEURYSM 2 CM CYST VERSUS NODULE LEFT LOWER POLE KIDNEY Chest X-Ray 11/01/18 00:00 IMPRESSION: Cardiomegaly with pulmonary vascular congestion and probable small bilateral pleural effusions. copyright 2011 [employer]- All Rights Reserved Assessment and Plan - Diagnosis (1) Acute on chronic systolic (congestive) heart failure Is this a current diagnosis for this admission?: Yes Plan: Has moderate improvement of her lower extremity edema. Moderate urine output Urine output 1475. Balance -635. Significant improvement of bloating and shortness of breath. Moderately depressed left ventricular ejection fraction patient was transferred to [facility] as per cardiology recommendation and was a started on start on dobutamine infusion and his urinary output and volume retention has improved since then. Dobutamine infusion DC'd since 08/13/2018. Continue Demadex, Bumex, LUIS, beta-keke. Cardiac diet, volume restriction. Monitor volume status. (2) Hypertension Qualifiers: Hypertension type: essential hypertension Qualified Code(s): I10 - Essential (primary) hypertension Is this a current diagnosis for this admission?: Yes Plan: Controlled. Continue LUIS, Demadex, beta-blockers. SBP low 100s, respiratory rate 16 saturating 100% on 2 L (3) Atrial fibrillation Qualifiers: Atrial fibrillation type: chronic Qualified Code(s): I48.2 - Chronic atrial fibrillation Is this a current diagnosis for this admission?: Yes Plan: Rate and rhythm controlled. Decrease metoprolol to 12.5 twice daily due to asymptomatic bradycardia. Continue amiodarone. Continue warfarin with INR goal of 2-2.5. Adjust dosage as needed. (4) Acute on chronic renal failure Is this a current diagnosis for this admission?: Yes Plan: Improving. Creatinine trending down. Urine output has improved significantly since being started on Demadex and dobutamine. Urine output 1475. Balance -635. (5) JAYY (obstructive sleep apnea) Is this a current diagnosis for this admission?: Yes Plan: Continue Bipap as tolerated (6) Obesity, Class III, BMI 40-49.9 (morbid obesity) Is this a current diagnosis for this admission?: Yes Plan: Continue diet and lifestyle modification. (7) Anemia Qualifiers: Anemia type: iron deficiency Is this a current diagnosis for this admission?: Yes Plan: Improving. Status post 2 PRBC transfusion since admission. Iron panel suggestive of iron deficiency anemia. Start on ferrous sulfate supplement. H&H trending up and improving. (8) UTI (urinary tract infection) Qualifiers: Urinary tract infection type: acute cystitis Hematuria presence: without hematuria Qualified Code(s): N30.00 - Acute cystitis without hematuria Is this a current diagnosis for this admission?: Yes Plan: Urine culture positive for E. coli sensitive to Rocephin. Completed a course of IV ceftriaxone. Asymptomatic. (9) Diabetes Qualifiers: Diabetes mellitus type: type 2 Is this a current diagnosis for this admission?: No Plan: Not controlled. Hemoglobin A1c 8%. Continue long-acting insulin, pre-meal insulin, sliding scale insulin, diabetic diet. Adjust meds as needed.
[2018-11-02] MEDS: MEXILETINE HCL 200 MG CAPSULE PO SCH ×3 (13:10→17:20)
[2018-11-02] MEDS ORDERED: LORAZEPAM 1 MG TABLET ONE (17:18)
[2018-11-02] MEDS: ACETAMINOPHEN 325 MG TABLET PO PRN (17:20)
[2018-11-02] MEDS: MELATONIN 5 MG TABLET PO SCH (21:44)
[2018-11-02] MEDS: LORAZEPAM 0.5 MG TABLET PO PRN (21:51)
--- NOTE | 2018-11-02 21:54 | Progress Note ---
Provider Note Provider Note: CARDIOLOGY PROGRESS NOTE by Dr. Leena aPdilla on 11/02/2018. SUBJECTIVE: The patient has no shortness of breath at rest. His urine output is reasonable. There is no firing of his AICD. There is no chest pain or discomfort. There is no PND orthopnea. He does wear his seat BiPAP at night. There is no ventricular arrhythmia seen on the monitor. His leg edema is almost resolved with only there being trace pedal edema. PHYSICAL EXAMINATION: The patient is morbidly obese. He is well-groomed. At present in no acute distress. Selected Entries 11/02/18 15:40 Temperature 99.4 F Temperature Oral Source Pulse Rate 80 Respiratory 20 Rate Blood Pressure 104/62 Blood Pressure 76 Mean BP Location Left Arm BP Position Sitting O2 Sat by Pulse 100 Oximetry Oxygen Flow 2.50 Rate Oxygen Delivery Nasal Cannula Method HEAD: Is atraumatic normocephalic. EYES: Pupils are equal round regular reactive to light accommodation. Extraocular movements are normal. There is no conjunctival pallor. There is no scleral icterus. EARS: Tympanic membranes are intact. External auditory canals are clear. NOSE: There is no deviated nasal septum. There is no inflammation of the nasal mucous membrane. MOUTH: Mucous noted in the mouth are moist tongue is moist. There is no ulcers. There is no bleeding from the gums. THROAT: There is no redness of the oropharynx. There is no exudates. SKIN: There is no skin rashes or skin lesions. There is no particular ecchymosis. NECK: Is supple. There is JVD present carotids are equal there is no bruits. There is no lymphadenopathy. There is no goiter. There is no accessory muscle respiration use. Trachea central LUNGS: There is diminished air entry and prolonged expiration. On percussion there is hyperresonance. There is bibasilar rales of CHF. HEART: S1-S2 is heard. S1 is of normal intensity. There is no S3 gallop. There is no S4 gallop. There is systolic murmur left sternal border and the apex there is no rub. ABDOMEN: Is obese. Nontender. There is no hepatosplenomegaly. Bowel sounds are well h eard. There is no tender areas of masses. EXTREMITIES: Femorals are deep. Femorals are diminished. Leg pulses are diminished. There is trace bilateral pedal edema present. There is no DVT or cellulitis. There is no calf tenderness. There is no sinus or clubbing. Capillary refill is normal. 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 PSYCHIATRIC: The patient judgment insight are intact her affect is normal. 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 Labs- All tests 24 hr 11/02/18 11/02/18 11/02/18 05:21 05:21 05:21 WBC 8.1 RBC 4.91 Hgb 10.9 L Hct 35.0 L MCV 71 L MCH 22.2 L MCHC 31.2 L RDW 25.1 H Plt Count 345 Seg Neutrophils % 73.9 Lymphocytes % 15.1 Monocytes % 9.1 Eosinophils % 0.5 Basophils % 1.4 Absolute Neutrophils 6.0 Absolute Lymphocytes 1.2 Absolute Monocytes 0.7 Absolute Eosinophils 0.0 Absolute Basophils 0.1 Platelet Comment ADEQUATE Polychromasia SLIGHT Hypochromasia 3+ Poikilocytosis SLIGHT Anisocytosis 3+ Ovalocytes 2+ Thanh Cells SLIGHT PT 34.8 H INR 3.27 Sodium 132.2 L Potassium 4.7 Chloride 101 Carbon Dioxide 20 L Anion Gap 11 BUN 34 H Creatinine 1.46 H Est GFR ( Amer) > 60 Est GFR (Non-Af Amer) 50 L Glucose 137 H POC Glucose Calcium 9.6 Magnesium 2.5 H Total Bilirubin 1.0 Direct Bilirubin 0.5 H Neonat Total Bilirubin Not Reportable Neonat Direct Bilirubin Not Reportable Neonat Indirect Bili Not Reportable AST 72 H ALT 86 H Alkaline Phosphatase 119 Total Protein 7.4 Albumin 3.9 TSH Free T4 Free T3 pg/mL 11/02/18 11/02/18 11/02/18 05:21 07:22 11:33 WBC RBC Hgb Hct MCV MCH MCHC RDW Plt Count Seg Neutrophils % Lymphocytes % Monocytes % Eosinophils % Basophils % Absolute Neutrophils Absolute Lymphocytes Absolute Monocytes Absolute Eosinophils Absolute Basophils Platelet Comment Polychromasia Hypochromasia Poikilocytosis Anisocytosis Ovalocytes Thanh Cells PT INR Sodium Potassium Chloride Carbon Dioxide Anion Gap BUN Creatinine Est GFR ( Amer) Est GFR (Non-Af Amer) Glucose POC Glucose 133 H 181 H Calcium Magnesium Total Bilirubin Direct Bilirubin Neonat Total Bilirubin Neonat Direct Bilirubin Neonat Indirect Bili AST ALT Alkaline Phosphatase Total Protein Albumin TSH 0.21 L Free T4 3.63 H Free T3 pg/mL 4.42 11/02/18 11/02/18 15:43 21:22 WBC RBC Hgb Hct MCV MCH MCHC RDW Plt Count Seg Neutrophils % Lymphocytes % Monocytes % Eosinophils % Basophils % Absolute Neutrophils Absolute Lymphocytes Absolute Monocytes Absolute Eosinophils Absolute Basophils Platelet Comment Polychromasia Hypochromasia Poikilocytosis Anisocytosis Ovalocytes Thanh Cells PT INR Sodium Potassium Chloride Carbon Dioxide Anion Gap BUN Creatinine Est GFR ( Amer) Est GFR (Non-Af Amer) Glucose POC Glucose 168 H 198 H Calcium Magnesium Total Bilirubin Direct Bilirubin Neonat Total Bilirubin Neonat Direct Bilirubin Neonat Indirect Bili AST ALT Alkaline Phosphatase Total Protein Albumin TSH Free T4 Free T3 pg/mL The patient's 24-hour intake is 840 mL. Output is 1475 mL. IMPRESSION/RECOMMENDATION: 1. Acute on chronic right and left ventricular systolic heart failure. This is improving we will continue the patient on Demadex, continue the patient on other current medication. 2. Ischemic cardiomyopathy with most likely depressed LV ejection fraction. Note that the patient's echocardiogram done in August shows a LV ejection fraction of 30% to 35%. Continue patient on beta keke and continue the patient on lisinopril. 3.Chronic kidney disease: Patient's GFR is improved to 50 mL. Nephrology consulted. 4. Coronary artery disease: History of prior MIs, and history of coronary bypass graft surgery, and history of stent placement. No anginal symptoms. So far the troponin I is negative. We will try to get the patient's records. 5. Paroxysmal atrial fibrillation: Would decrease the patient's amiodarone to 200 mg once a day. 6. Hypertension: Blood pressure well controlled. 7. Diabetes mellitus type 2 insulin-dependent: Continue patient's insulin, and check patient's blood sugars periodically. 8. Hyperlipidemia: The patient's liver function tests are still abnormal, although less so. Since the patient needs to be on amiodarone at a reduced dose of 200 mg p.o. daily, will temporarily stop the patient's statin. 9. Obstructive sleep apnea: Would continue the patient's CPAP 10. Morbid obesity: Later would recommend patient strict diet, and weight loss program. 11. History of AICD placement: No recent firing of AICD. The last firing/shock by AICD was about a month ago as per patient's history. 12. Mildly elevated free T4,and abnormal liver function tests. Clinically there is no signs of hypothyroidism. Although the free T4 is still elevated its less so than before. We will continue to keep a close observation on this. Will discontinue the patient's Robertson catheter, hopefully patient can be discharged in the next 24-48 hours.. Medications reviewed medications adjusted. Medical management discussed with attending physician on the case. Condition making is still of high complexity. 40 minutes spent on this patient more than 50% of time spent in direct patient care.
[2018-11-02] MEDS ORDERED: WARFARIN SODIUM 3 MG TABLET PO SCH (22:00)
[2018-11-03 07:04] LABS: FREE T3 4.31 pg/mL (2.77-5.27); FREE T4 (FREE THYROXINE) 3.28 ng/dL (0.78-2.19)
[2018-11-03 07:17] LABS: THYROID STIMULATING HORMONE 0.18 uIU/mL (0.47-4.68)
[2018-11-03] MEDS: POTASSIUM CHLORIDE 10 MEQ CAPSULE.ER PO SCH (09:26)
[2018-11-03] MEDS: INSULIN LISPRO 100 UNIT/ML 3 ML VIAL SUBCUT SCH ×4 (09:33→23:24)
[2018-11-03] MEDS: FERROUS SULFATE 325 MG TABLET PO SCH ×3 (09:33→17:13)
[2018-11-03] MEDS: AMIODARONE HCL 200 MG TABLET PO SCH (09:34)
[2018-11-03] MEDS: BUMETANIDE 1 MG TABLET PO SCH (09:34)
[2018-11-03] MEDS: SPIRONOLACTONE 25 MG TABLET PO SCH (09:34)
[2018-11-03] MEDS: CLOPIDOGREL BISULFATE 75 MG TABLET PO SCH (09:36)
[2018-11-03] MEDS: LISINOPRIL 5 MG TABLET PO SCH ×2 (09:36→23:24)
[2018-11-03] MEDS: TORSEMIDE 20 MG TABLET PO SCH ×2 (09:36→17:13)
[2018-11-03] MEDS: GABAPENTIN 300 MG CAPSULE PO SCH ×2 (09:36→23:23)
[2018-11-03] MEDS: POLYETHYLENE GLYCOL 3350 POWDER 17 GM/1 PACKET PO SCH (09:36)
[2018-11-03] MEDS: MEXILETINE HCL 200 MG CAPSULE PO SCH ×3 (09:36→17:13)
[2018-11-03] MEDS: MULTIVITAMIN TABLET PO SCH (09:37)
[2018-11-03] MEDS: METOPROLOL SUCCINATE 25 MG TAB.SR.24H PO SCH ×2 (09:37→23:23)
[2018-11-03] MEDS: INSULIN GLARGINE,HUM.REC.ANLOG 1,000 UNIT/10 ML VIAL SUBCUT SCH (12:56)
--- NOTE | 2018-11-03 17:15 | PDOC PROGRESS REPORT ---
Subjective Progress Note for:: 11/03/18 Subjective:: No adverse events overnight. No new complaints. He has been sitting up in the chair breathing comfortably. He denies any shortness of breath. No chest pain. He is been able to get up in the room on oxygen. Reason For Visit: ACUTE ON CHRONIC CHF Physical Exam Vital Signs: Temp Pulse Resp BP Pulse Ox 97.6 F 73 18 107/62 97 11/03/18 14:37 11/03/18 14:37 11/03/18 14:37 11/03/18 14:37 11/03/18 14:37 Intake & Output 11/02/18 11/03/18 11/04/18 06:59 06:59 06:59 Intake Total 840 948 480 Output Total 1475 2030 Balance -635 -1082 480 Weight 136 kg 131.4 kg General appearance: PRESENT: no acute distress, cooperative, disheveled, morbidly obese Respiratory exam: PRESENT: decreased breath sounds, symmetrical, unlabored. ABSENT: accessory muscle use, crackles, prolonged expiratory phas, rhonchi, tachypnea, wheezes Cardiovascular exam: PRESENT: RRR, +S1, +S2 Pulses: PRESENT: normal carotid pulses Vascular exam: PRESENT: normal capillary refill GI/Abdominal exam: PRESENT: normal bowel sounds, soft. ABSENT: distended, guarding, rebound, tenderness Extremities exam: ABSENT: clubbing, pedal edema Musculoskeletal exam: PRESENT: normal inspection. ABSENT: deformity Neurological exam: PRESENT: alert, awake, oriented to person, oriented to place, oriented to time, oriented to situation Psychiatric exam: PRESENT: appropriate affect, normal mood Skin exam: PRESENT: dry, warm Results Laboratory Results: 11/02/18 05:21 11/02/18 05:21 11/03/18 05:25 TSH 0.18 L Free T4 3.28 H Free T3 pg/mL 4.31 10/25/18 10/25/18 10/26/18 18:39 18:39 01:15 Creatine Kinase 109 96 CK-MB (CK-2) 2.61 Troponin I 0.051 NT-Pro-B Natriuret Pep 8970 H 10/26/18 10/26/18 10/26/18 01:15 07:10 07:10 Creatine Kinase 88 CK-MB (CK-2) 2.39 2.17 Troponin I 0.075 0.068 NT-Pro-B Natriuret Pep 10/26/18 10/26/18 10/27/18 13:48 13:48 07:24 Creatine Kinase 87 CK-MB (CK-2) 2.42 Troponin I 0.055 NT-Pro-B Natriuret Pep 9850 H 10/29/18 10/30/18 10/30/18 10:03 01:35 01:35 Creatine Kinase 46 L CK-MB (CK-2) 2.09 Troponin I 0.049 NT-Pro-B Natriuret Pep 4850 H 10/30/18 10/30/18 10/30/18 07:35 07:35 07:35 Creatine Kinase 59 CK-MB (CK-2) 2.41 Troponin I 0.054 NT-Pro-B Natriuret Pep 6600 H 10/30/18 10/30/18 13:35 13:35 Creatine Kinase 67 CK-MB (CK-2) 2.20 Troponin I 0.045 NT-Pro-B Natriuret Pep Impressions: Lung Scan-VQ NM 10/25/18 19:44 IMPRESSION: Nondiagnostic exam. copyright 2010 [employer]- All Rights Reserved Abdomen CT 10/30/18 00:00 IMPRESSION: NO ACUTE CHANGES UNRUPTURED 4 CM ABDOMINAL AORTIC ANEURYSM 2 CM CYST VERSUS NODULE LEFT LOWER POLE KIDNEY Chest X-Ray 11/01/18 00:00 IMPRESSION: Cardiomegaly with pulmonary vascular congestion and probable small bilateral pleural effusions. copyright 2011 [employer]- All Rights Reserved Assessment and Plan - Diagnosis (1) Acute on chronic systolic (congestive) heart failure Is this a current diagnosis for this admission?: Yes Plan: Resolved. Euvolemic. Anticipate discharge home tomorrow. (2) Acute on chronic renal failure Is this a current diagnosis for this admission?: Yes Plan: Resolved. Creatinine back to baseline. (3) Obesity, Class III, BMI 40-49.9 (morbid obesity) Is this a current diagnosis for this admission?: Yes Plan: Continue diet and lifestyle modification. Strongly encouraged said modifications. - Time Time Spent with patient: 25-34 minutes
[2018-11-03] MEDS ORDERED: WARFARIN SODIUM 4 MG TABLET PO SCH (22:00)
--- NOTE | 2018-11-03 23:22 | Progress Note ---
Provider Note Provider Note: CARDIOLOGY PROGRESS NOTE by Dr. Leena Padilla on 11/03/2018. SUBJECTIVE: The patient denies any shortness of breath. There is no PND orthopnea. His leg edema is almost resolved there is only trace edema. There is no firing of his AICD. There is no arrhythmia seen. There is no recurrence of atrial fibrillation. There is no bleeding complications. There is no TIA CVA symptoms. There is no chest pain or discomfort. There is no wheezing cough PND orthopnea. PHYSICAL EXAMINATION: The patient is morbidly obese. He is well-groomed. He is in no acute distress. Selected Entries 11/03/18 11/03/18 01:07 07:15 Temperature 97.6 F Temperature Axillary Source Pulse Rate 80 Respiratory 18 Rate Blood Pressure 102/65 Blood Pressure 77 Mean BP Location Right Arm BP Position Supine O2 Sat by Pulse 93 Oximetry Fraction of 28 Inspired Oxygen (FIO2) Oxygen Flow 2 Rate Oxygen Delivery Cpap Method HEAD: Is atraumatic normocephalic. EYES: Pupils are equal round regular reactive to light accommodation. Extraocular movements are normal. There is no conjunctival pallor. There is no scleral icterus. EARS: Tympanic membranes are intact. External auditory canals are clear. NOSE: There is no deviated nasal septum. There is no inflammation of the nasal mucous membrane. MOUTH: Mucous noted in the mouth are moist tongue is moist. There is no ulcers. There is no bleeding from the gums. THROAT: There is no redness of the oropharynx. There is no exudates. SKIN: There is no skin rashes or skin lesions. There is no particular ecchymosis. NECK: Is supple. There is JVD present carotids are equal there is no bruits. There is no lymphadenopathy. There is no goiter. There is no accessory muscle respiration use. Trachea central LUNGS: There is diminished air entry and prolonged expiration. On percussion there is hyperresonance. There is bibasilar rales of CHF. HEART: S1-S2 is heard. S1 is of normal intensity. There is no S3 gallop. There is no S4 gallop. There is systolic murmur left sternal border and the apex there is no rub. ABDOMEN: Is obese. Nontender. There is no hepatosplenomegaly. Bowel sounds are well heard. There is no tender areas of masses. EXTREMITIES: Femorals are deep. Femorals are diminished. Leg pulses are diminished. There is trace bilateral pedal edema present. There is no DVT or cellulitis. There is no calf tenderness. There is no sinus or clubbing. Capillary refill is normal. 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 PSYCHIATRIC: The patient judgment insight are intact her affect is normal. 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 Labs- All tests 24 hr 11/03/18 11/03/18 11/03/18 05:25 09:32 12:15 POC Glucose 129 H 202 H TSH 0.18 L Free T4 3.28 H Free T3 pg/mL 4.31 11/03/18 11/03/18 15:27 22:24 POC Glucose 143 H 181 H TSH Free T4 Free T3 pg/mL The patient's 24-hour intake is 948 mL. Output is 2030 mL. IMPRESSION/RECOMMENDATION: 1. Acute on chronic right and left ventricular systolic heart failure. This is improving we will continue the patient on Demadex, continue the patient on other current medication. 2. Ischemic cardiomyopathy with most likely depressed LV ejection fraction. Note that the patient's echocardiogram done in August shows a LV ejection fraction of 30% to 35%. Continue patient on beta keke and continue the patient on lisinopril. 3.Chronic kidney disease: Patient's GFR is improved to 50 mL. 4. Coronary artery disease: History of prior MIs, and history of coronary bypass graft surgery, and history of stent placement. No anginal symptoms. So far the troponin I is negative. We will try to get the patient's records. 5. Paroxysmal atrial fibrillation: Would decrease the patient's amiodarone to 200 mg once a day. 6. Hypertension: Blood pressure well controlled. 7. Diabetes mellitus type 2 insulin-dependent: Continue patient's insulin, and check patient's blood sugars periodically. 8. Hyperlipidemia: The patient's liver function tests are still abnormal, although less so. Since the patient needs to be on amiodarone at a reduced dose of 200 mg p.o. daily, will temporarily stop the patient's statin. 9. Obstructive sleep apnea: Would continue the patient's CPAP 10. Morbid obesity: Later would recommend patient strict diet, and weight loss program. 11. History of AICD placement: No recent firing of AICD. The last firing/shock by AICD was about a month ago as per patient's history. 12. Mildly elevated free T4,and abnormal liver function tests. Clinically there is no signs of hypothyroidism. Although the free T4 is still elevated its less so than before. We will continue to keep a close observation on this. Will recheck liver function test in the a.m. Medications reviewed medications adjusted. Medical management discussed with attending physician on the case. Condition making is still of high complexity. 40 minutes spent on this patient more than 50% of time spent in direct patient care.
[2018-11-03] MEDS: MELATONIN 5 MG TABLET PO SCH (23:23)
[2018-11-03] MEDS: LORAZEPAM 0.5 MG TABLET PO PRN (23:27)
[2018-11-04 05:41] LABS: ALANINE AMINOTRANSFERASE 81 U/L (21-72); ALBUMIN 3.7 g/dL (3.5-5.0); ALKALINE PHOSPHATASE 106 U/L (38-126); ASPARTATE AMINO TRANSFERASE 67 U/L (17-59); BILIRUBIN,DIRECT 0.5 mg/dL (0.0-0.4); BILIRUBIN,TOTAL 0.7 mg/dL (0.2-1.3); TOTAL PROTEIN 7.2 g/dL (6.3-8.2)
[2018-11-04] MEDS: INSULIN LISPRO 100 UNIT/ML 3 ML VIAL SUBCUT SCH ×2 (08:11→13:19)
[2018-11-04] MEDS: POTASSIUM CHLORIDE 10 MEQ CAPSULE.ER PO SCH (09:25)
[2018-11-04] MEDS: SPIRONOLACTONE 25 MG TABLET PO SCH (09:47)
[2018-11-04] MEDS: FERROUS SULFATE 325 MG TABLET PO SCH ×2 (09:47→13:20)
[2018-11-04] MEDS: AMIODARONE HCL 200 MG TABLET PO SCH (09:48)
[2018-11-04] MEDS: POLYETHYLENE GLYCOL 3350 POWDER 17 GM/1 PACKET PO SCH (09:48)
[2018-11-04] MEDS: INSULIN GLARGINE,HUM.REC.ANLOG 1,000 UNIT/10 ML VIAL SUBCUT SCH (09:48)
[2018-11-04] MEDS: BUMETANIDE 1 MG TABLET PO SCH (09:48)
[2018-11-04] MEDS: MEXILETINE HCL 200 MG CAPSULE PO SCH ×2 (09:48→13:20)
[2018-11-04] MEDS: TORSEMIDE 20 MG TABLET PO SCH (09:48)
[2018-11-04] MEDS: METOPROLOL SUCCINATE 25 MG TAB.SR.24H PO SCH (09:49)
[2018-11-04] MEDS: CLOPIDOGREL BISULFATE 75 MG TABLET PO SCH (09:49)
[2018-11-04] MEDS: GABAPENTIN 300 MG CAPSULE PO SCH (09:49)
[2018-11-04] MEDS: LISINOPRIL 5 MG TABLET PO SCH (09:49)
[2018-11-04] MEDS: MULTIVITAMIN TABLET PO SCH (09:49)
[2018-11-04 13:14] VITALS: BP 134/80
--- NOTE | 2018-11-04 18:26 | PDOC DISCHARGE SUMMARY ---
General - Admit/Disc Date/PCP Admission Date/Primary Care Provider: 10/25/18 22:48 Discharge Date: 11/04/18 - Discharge Diagnosis (1) Acute on chronic systolic (congestive) heart failure Is this a current diagnosis for this admission?: Yes Summary: Responded to diuretics and medical management. NYHA class II. (2) Acute on chronic renal failure Is this a current diagnosis for this admission?: Yes Summary: Actually got better with diuresis. Back to baseline. (3) Obesity, Class III, BMI 40-49.9 (morbid obesity) Is this a current diagnosis for this admission?: Yes Summary: Strongly encouraged lifestyle modification - Additional Information Discharge Diet: Cardiac, Diabetic Discharge Activity: Activity As Tolerated, Balance Activity w/Rest, Weigh Daily Prescriptions: Amiodarone HCl [Cordarone 200 mg Tablet] 200 mg PO DAILY #30 tablet Lisinopril [Prinivil 5 mg Tablet] 5 mg PO Q12 #60 tablet Home Medications: Acetaminophen [Tylenol] 325 mg PO Q6HP PRN 10/26/18 Albuterol Sulfate [Proair HFA Inhalation Aerosol 8.5 gm MDI] 2 puff IH Q4HP PRN 10/26/18 Cholecalciferol (Vitamin D3) [Vitamin D3 1000 Unit Tablet] 5,000 unit PO DAILY 10/26/18 Clopidogrel Bisulfate [Plavix 75 mg Tablet] 75 mg PO QHS 10/26/18 Docusate Sodium [Colace 100 mg Capsule] 100 mg PO BID 10/26/18 Gabapentin [Neurontin 100 mg Capsule] 200 mg PO Q8 10/26/18 Insulin Aspart [Novolog Insulin (Aspart) 100 unit/mL] 0 unit SUBCUT .SLD SCALE 10/26/18 Insulin Aspart [Novolog Insulin (Aspart) 100 unit/mL] 14 unit SQ DAILY 10/26/18 Insulin Aspart [Novolog Insulin (Aspart) 100 unit/mL] 25 unit SQ NOON 10/26/18 Insulin Aspart [Novolog Insulin (Aspart) 100 unit/mL] 30 unit SQ QPM 10/26/18 Lidocaine [Lidoderm 5% (700 mg) Transdermal Patch] 1 patch TP DAILY 10/26/18 Lorazepam [Ativan 0.5 mg Tablet] 0.5 mg PO Q6HP PRN 10/26/18 Melatonin [Melatonin 5 mg Tablet] 5 mg PO HSP PRN 10/26/18 Metoprolol Succinate [Toprol Xl 25 mg Tab.sr] 12.5 mg PO Q12 10/26/18 Mexiletine HCl [Mexitil 200 mg Capsule] 200 mg PO Q8 10/26/18 Multivitamin [Multiple Vitamins] 1 each PO DAILY 10/26/18 NPH, Human Insulin Isophane [Humulin N (NPH) Insulin 100 unit/mL] 22 unit SQ DAILY 10/26/18 NPH, Human Insulin Isophane [Humulin N (NPH) Insulin 100 unit/mL] 25 unit SQ QHS 10/26/18 Nitroglycerin [Nitrostat 0.4 mg (1/150 Gr) Tabs 25/Bottle] 1 tab SL Q5MP PRN 10/26/18 Nystatin [Mycostatin Topical Powder 15 gm] 1 applic TP BID 10/26/18 Ondansetron HCl [Zofran 4 mg Tablet] 4 mg PO Q6HP PRN 10/26/18 Polyethylene Glycol 3350 [Miralax Powder 17 gm/Packet] 1 packet PO DAILY 10/26/18 Rosuvastatin Calcium [Crestor 20 mg Tablet] 20 mg PO QHS 10/26/18 Sennosides [Senokot] 8.6 mg PO QHS 10/26/18 Sertraline HCl [Zoloft 50 mg Tablet] 50 mg PO DAILY 10/26/18 Spironolactone [Aldactone] 50 mg PO DAILY 10/26/18 Witch Fannie [Tucks] 1 each TP Q1HP PRN 10/26/18 Amiodarone HCl [Cordarone 200 mg Tablet] 200 mg PO DAILY #30 tablet 11/04/18 Lisinopril [Prinivil 5 mg Tablet] 5 mg PO Q12 #60 tablet 11/04/18 Torsemide [Demadex 20 mg Tablet] 20 mg PO BID #0 11/04/18 Warfarin Sodium [Coumadin 4 mg Tablet] 4 mg PO QHS tablet 11/04/18 History of Present Illness History of Present Illness: THADDEUS DEY is a 53 year old male with history of multiple medical problems that will be mentioned below who presented to the emergency room with acute onset of worsening dyspnea with associated orthopnea and paroxysmal nocturnal dyspnea as well as lower extremity edema with dyspnea on exertion over the last 10 days. He denies any fever or chills. He has been having cough occasionally productive of green sputum and admitted to wheezing as well as nausea without vomiting. He denies any dysuria or hematuria or flank pain. He did not have much urine output today. Upon presentation to the emergency room, vital signs were within normal. Labs revealed a hemoglobin of 8.4 hematocrit 27.5 with WBC of 7.3 and platelets of 434. The patient is not aware about history of anemia so does not know his baseline.. He is on Coumadin and INR is 2.07 with PT of 24.3 and PTT 45. CMP revealed sodium 134.3 and a BUN of 40 with a creatinine 1.78 with a blood glucose of 245. His AST was 78 and ALT 108. His BNP came back 8970 with a troponin I 0.051 and albumin of 3.4 with total protein of 6.8. His urinalysis showed large leukocyte esterase and 40 WBCs with 2 RBCs and trace bacteria. His EKG showed paced rhythm with a rate of 82. Chest x-ray revealed trace right pleural effusion and cardiomegaly. Patient went for a VQ scan to rule out PE and he could not tolerate the study therefore it was nondiagnostic. The patient was given form a gram of IV Zofran as well as 40 mg of IV Lasix and a gram of IV Rocephin. He will be admitted to telemetry bed for further evaluation and management. Hospital Course Hospital Course: He said somebody in his family and so he moved down here from [place] and wound up in the hospital once he got here. He responded to diuresis and medical management. It took several days. Because it was so difficult to get fluid off of him cardiology was consulted and the patient ultimately needed a dobutamine drip. He had some adjustments made to his medication regimen, including increasing his home dose of torsemide and increasing his Toprol-XL. We were eventually able to get him off oxygen. He was able to perform his ADLs. He r eally just wanted to stay here for a few more days but he was at a point where he was able to go home. His labs and examination were reassuring and he was discharged in good condition. Physical Exam Vital Signs: Temp Pulse Resp BP Pulse Ox 97.5 F 79 18 134/80 H 93 11/04/18 13:12 11/04/18 13:12 11/04/18 13:12 11/04/18 13:12 11/04/18 13:12 Intake & Output 11/03/18 11/04/18 11/05/18 06:59 06:59 06:59 Intake Total 948 630 Output Total 2029 Balance -1082 630 Weight 131.4 kg 128.9 kg General appearance: PRESENT: no acute distress, cooperative, disheveled, morbi dly obese Respiratory exam: PRESENT: decreased breath sounds, symmetrical, unlabored. ABSENT: accessory muscle use, crackles, prolonged expiratory phas, rhonchi, tachypnea, wheezes Cardiovascular exam: PRESENT: RRR, +S1, +S2 Pulses: PRESENT: normal carotid pulses Vascular exam: PRESENT: normal capillary refill GI/Abdominal exam: PRESENT: normal bowel sounds, soft. ABSENT: distended, guarding, rebound, tenderness Extremities exam: ABSENT: clubbing, pedal edema Musculoskeletal exam: PRESENT: normal inspection. ABSENT: deformity Neurological exam: PRESENT: alert, awake, oriented to person, oriented to place, oriented to time, oriented to situation Psychiatric exam: PRESENT: appropriate affect, normal mood Skin exam: PRESENT: dry, warm Results Laboratory Results: 11/02/18 05:21 11/02/18 05:21 11/04/18 05:01 Total Bilirubin 0.7 AST 67 H ALT 81 H Alkaline Phosphatase 106 Total Protein 7.2 Albumin 3.7 10/25/18 10/25/18 10/26/18 18:39 18:39 01:15 Creatine Kinase 109 96 CK-MB (CK-2) 2.61 Troponin I 0.051 NT-Pro-B Natriuret Pep 8970 H 10/26/18 10/26/18 10/26/18 01:15 07:10 07:10 Creatine Kinase 88 CK-MB (CK-2) 2.39 2.17 Troponin I 0.075 0.068 NT-Pro-B Natriuret Pep 10/26/18 10/26/18 10/27/18 13:48 13:48 07:24 Creatine Kinase 87 CK-MB (CK-2) 2.42 Troponin I 0.055 NT-Pro-B Natriuret Pep 9850 H 10/29/18 10/30/18 10/30/18 10:03 01:35 01:35 Creatine Kinase 46 L CK-MB (CK-2) 2.09 Troponin I 0.049 NT-Pro-B Natriuret Pep 4850 H 10/30/18 10/30/18 10/30/18 07:35 07:35 07:35 Creatine Kinase 59 CK-MB (CK-2) 2.41 Troponin I 0.054 NT-Pro-B Natriuret Pep 6600 H 10/30/18 10/30/18 13:35 13:35 Creatine Kinase 67 CK-MB (CK-2) 2.20 Troponin I 0.045 NT-Pro-B Natriuret Pep Impressions: Lung Scan-VQ NM 10/25/18 19:44 IMPRESSION: Nondiagnostic exam. copyright 2010 [employer]- All Rights Reserved Abdomen CT 10/30/18 00:00 IMPRESSION: NO ACUTE CHANGES UNRUPTURED 4 CM ABDOMINAL AORTIC ANEURYSM 2 CM CYST VERSUS NODULE LEFT LOWER POLE KIDNEY Chest X-Ray 11/01/18 00:00 IMPRESSION: Cardiomegaly with pulmonary vascular congestion and probable small bilateral pleural effusions. copyright 2011 [employer]- All Rights Reserved Qualifiers - * PATIENT BEING DISCHARGED WITH ANY OF THE FOLLOWING DIAGNOSIS: Heart Failure HF Pt being discharged on ACEI for LVEF less than 40%?: Yes HF Pt being discharged on ARBS for LVEF less than 40%?: No Reason(s) for not prescribing ARBS:: Not indicated HF Pt with Afib discharged with Warfarin?: Yes HF Pt discharged on evidence-based Beta Ke:: Yes
== END 2018-11-04 15:00 | disposition home or self-care (01) | DRG 291 ==
LOC: ER 15:06 → EH 22:48 → 4S 10-26 00:20 → 3S 10-30 15:24
PROVIDERS: ADMIT Family Medicine; ATTEND Family Medicine
PROC: 30233N1 Transfusion of Nonautologous Red Blood Cells into Peripheral Vein, Percutaneous Approach (ICD-10-PCS; principal; 2018-10-30)
DX: I13.0 Hypertensive heart and chronic kidney disease with heart failure and stage 1 through stage 4 chronic kidney disease, or unspecified chronic kidney disease (principal); I50.23 Acute on chronic systolic (congestive) heart failure; N17.9 Acute kidney failure, unspecified; Z68.41 Body mass index [BMI] 40.0-44.9, adult; E87.1 Hypo-osmolality and hyponatremia; N30.00 Acute cystitis without hematuria; N18.3 Chronic kidney disease, stage 3 (moderate); E11.22 Type 2 diabetes mellitus with diabetic chronic kidney disease; G47.33 Obstructive sleep apnea (adult) (pediatric); B96.20 Unspecified Escherichia coli [E. coli] as the cause of diseases classified elsewhere; I48.2 Chronic atrial fibrillation; D50.9 Iron deficiency anemia, unspecified; I27.20 Pulmonary hypertension, unspecified; I25.5 Ischemic cardiomyopathy; E66.01 Morbid (severe) obesity due to excess calories; Z79.01 Long term (current) use of anticoagulants; I25.2 Old myocardial infarction; Z87.891 Personal history of nicotine dependence; Z95.810 Presence of automatic (implantable) cardiac defibrillator; Z79.4 Long term (current) use of insulin; Z90.49 Acquired absence of other specified parts of digestive tract
CPT/HCPCS: 36415; 36430; 71046; 74150; 78582; 80048; 80053; 80069; 80076; 81001; 82550; 82553; 82607; 82728; 82746; 82962; 83036; 83540; 83550; 83615; 83735; 83880; 84439; 84443; 84481; 84484; 85025; 85045; 85610; 85730; 86850; 86900; 86901; 86920; 87040; 87086; 87088; 87186; 93005; 93010; 96374; 96375; 99285; A9540; A9567; J0696; J1250; J1650; J1815; J1940; J2270; J2405; J3490; P9016; Q9969; S0119

== ENCOUNTER 2018-12-06 21:05 | Emergency (ER) | payer MEDICARE ==
[2018-12-06] MEDS ORDERED: LORAZEPAM 1 MG TABLET PO ONE ×2 (21:17→22:26)
--- NOTE | 2018-12-06 21:17 | ER Document Report ---
ED General - General Stated Complaint: SYNCOPE Time Seen by Provider: 12/06/18 21:10 Mode of Arrival: Medic Information source: Patient Notes: This is a 53-year-old man brought in by EMS after fall at home. The patient does have a history of PTSD, A. fib (amiodarone, warfarin), vertigo, CHF, COPD, diabetes. Patient states he got dizzy at home and then fell. He does not think he hit his head but he does have a headache right now. He also states he feels a little anxious because of his PTSD. TRAVEL OUTSIDE OF THE [place] IN LAST 30 DAYS: No - HPI Onset: Just prior to arrival Onset/Duration: Sudden Quality of pain: Dull Severity: Mild Pain Level: 1 Associated symptoms: denies: Chest pain, Fever, Shortness of breath Exacerbated by: Denies Relieved by: Denies Similar symptoms previously: Yes Recently seen / treated by doctor: No - Related Data Allergies/Adverse Reactions: indomethacin [From Indocin] Allergy (Verified 11/26/18 18:38) levofloxacin [From Levaquin] Allergy (Verified 11/26/18 18:38) Past Medical History - General Information source: Patient - Social History Smoking Status: Unknown if Ever Smoked Cigarette use (# per day): No Chew tobacco use (# tins/day): No Frequency of alcohol use: None Drug Abuse: None Lives with: Alone Family History: CVA - Mother Patient has suicidal ideation: No Patient has homicidal ideation: No - Past Medical History Cardiac Medical History: Reports: Hx Atrial Fibrillation - On amiodarone and anticoagulation Coumadin, Hx Congestive Heart Failure, Hx Coronary Artery Disease, Hx Heart Attack, Hx Hypercholesterolemia, Hx Hypertension Pulmonary Medical History: Reports: Hx COPD, Hx Sleep Apnea - On home BiPAP Endocrine Medical History: Reports: Hx Diabetes Mellitus Type 2 Renal/ Medical History: Denies: Hx Peritoneal Dialysis Psychiatric Medical History: Denies: Hx Depression Past Surgical History: Reports: Hx Appendectomy, Hx Cardiac Catheterization, Hx Cardiac Surgery - Pacemaker/defibrillator, Hx Cholecystectomy, Hx Coronary Stent, Hx Internal Defibrillator, Other - 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, 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 EYES: Pupils equal round and reactive to light, extraocular movements intact, sclera anicteric, conjunctiva are normal. ENT: TMs normal, nares patent, oropharynx clear without exudates. Moist mucous membranes. NECK: Normal range of motion, supple without obvious mass or JVD. LUNGS: Breath sounds clear to auscultation bilaterally and equal. No wheezes rales or rhonchi. HEART: Regular rate and rhythm without murmurs, rubs or gallops. ABDOMEN: Soft, normoactive bowel sounds. No tenderness to palpation. No guardi ng, no rebound. No masses appreciated. EXTREMITIES: Normal range of motion, no pitting or edema. No clubbing or cyanosis. NEUROLOGICAL: Cranial nerves II through XII grossly intact. Normal speech, moving all extremities. PSYCH: Normal mood, normal affect. SKIN: Warm, Dry, normal turgor, no rashes or lesions noted. Course - Re-evaluation Re-evalutation: 12/06/18 22:41 Note: Patient remains alert and oriented x3 with a GCS of 15. CT shows no acute bleed. Patient looks good. He was concerned that he may be getting some fluid overload. He has been over diuresed in the past and had acute kidney injury from this. He certainly has a certain amount of chronic kidney disease and I have explained to him that there is a fine balance. In any event, he does not appear short of breath and he appears well compensated at this time. I do not want to increase his diuretic because he is kidney function test is slightly higher than previous (still much better than in November). At the same time, he does have some congestion on the x-ray. But he does not appear in any distress in the emergency room on exam. He is willing to follow-up with Dr. Padilla. He does report not taking his Coumadin today and will take it when he gets home. - Vital Signs Vital signs: Temp Pulse Resp BP Pulse Ox 98.6 F 83 16 100/60 100 12/06/18 21:20 12/06/18 21:18 12/06/18 23:11 12/06/18 23:11 12/06/18 23:11 - Laboratory Result Diagrams: 12/06/18 21:25 12/06/18 21:25 Laboratory results interpreted by me: 12/06/18 12/06/18 12/06/18 21:25 21:25 21:25 Hgb 10.4 L Hct 33.7 L MCV 74 L MCH 22.8 L MCHC 30.7 L RDW 25.3 H Lymphocytes % 11.9 L PT 23.0 H Sodium 135.3 L Carbon Dioxide 21 L BUN 38 H Creatinine 2.22 H Est GFR ( Amer) 37 L Est GFR (Non-Af Amer) 31 L Glucose 158 H Direct Bilirubin 0.6 H NT-Pro-B Natriuret Pep 12/06/18 21:25 Hgb Hct MCV MCH MCHC RDW Lymphocytes % PT Sodium Carbon Dioxide BUN Creatinine Est GFR ( Amer) Est GFR (Non-Af Amer) Glucose Direct Bilirubin NT-Pro-B Natriuret Pep 40408 H - Diagnostic Test Radiology reviewed: Image reviewed, Reports reviewed - CT of the head shows no acute bleed. The x-ray does show some chronic pulmonary congestion. Discharge - Discharge Clinical Impression: Fall, Vertigo, Headache Condition: Stable Disposition: HOME, SELF-CARE Additional Instructions: As we discussed, your head CT look good tonight. There was no evidence of bleeding. I do want you to take your Coumadin tonight when you get home. I want you to continue current medicines. While you tend to be a little on the fluid overload side, I want to avoid overdiuresis and hurting your kidneys. You do have chronic kidney disease. I would like you to call Dr. Loredo on Saturday for follow-up appointment. Return to the emergency room for worsening headache or concerns or getting worse.
[2018-12-06 21:50] LABS: ABSOLUTE BASOPHILS # (AUTO) 0.1 10^3/uL (0.0-0.2); ABSOLUTE EOSINOPHILS # (AUTO) 0.1 10^3/uL (0.0-0.6); ABSOLUTE MONOCYTES (AUTO) 0.6 10^3/uL (0.1-1.4); ABSOLUTE NEUT (AUTO) 6.3 10^3/uL (1.7-8.2); BASOPHILS % (AUTO) 1.6 % (0-2); HEMATOCRIT 33.7 % (37.9-51.0); HEMOGLOBIN 10.4 g/dL (13.5-17.0); LYMPHOCYTES % (AUTO) 11.9 % (13-45); MEAN CORPUSCULAR HEMOGLOBIN 22.8 pg (27.0-33.4); MEAN CORPUSCULAR HGB CONC 30.7 g/dL (32.0-36.0); MEAN CORPUSCULAR VOLUME 74 fl (80-97); MONOCYTES % (AUTO) 7.9 % (3-13); PLATELET COUNT 299 10^3/uL (150-450); RED BLOOD COUNT 4.54 10^6/uL (4.35-5.55); RED CELL DISTRIBUTION WIDTH 25.3 % (11.5-14.0); SEGMENTED NEUTROPHILS % (AUTO) 77.6 % (42-78); TOTAL CELLS COUNTED % (AUTO) 100 %
[2018-12-06 21:55] LABS: INTERNATIONAL RATION (INR) 1.94
[2018-12-06 22:06] LABS: ALANINE AMINOTRANSFERASE 68 U/L (21-72); ALBUMIN 3.9 g/dL (3.5-5.0); ALKALINE PHOSPHATASE 101 U/L (38-126); ANION GAP 14 (5-19); ASPARTATE AMINO TRANSFERASE 59 U/L (17-59); BILIRUBIN,DIRECT 0.6 mg/dL (0.0-0.4); BLOOD UREA NITROGEN 38 mg/dL (7-20); CALCIUM 9.2 mg/dL (8.4-10.2); CARBON DIOXIDE 21 mmol/L (22-30); CHLORIDE 100 mmol/L (98-107); GLUCOSE 158 mg/dL (75-110); POTASSIUM 4.6 mmol/L (3.6-5.0); SODIUM 135.3 mmol/L (137-145); TOTAL PROTEIN 7.3 g/dL (6.3-8.2)
[2018-12-06 22:11] LABS: ANISOCYTOSIS 3+; BURR CELLS 1+; HYPOCHROMASIA 2+; OVALOCYTES 1+; POLYCHROMASIA SLIGHT
[2018-12-06 22:12] LABS: PLATELET COMMENT ADEQUATE; SCHISTOCYTES SLIGHT; TARGET CELLS SLIGHT; TEAR DROP CELLS 1+
--- NOTE | 2018-12-06 22:14 | RADIOLOGY REPORT (SQ) ---
EXAM DESCRIPTION: XR CHEST 1 VIEW COMPLETED DATE/TME: 12/06/2018 21:18 CLINICAL HISTORY: 53 years, Male, sob COMPARISON: 11/26/2018 chest NUMBER OF VIEWS: 1 TECHNIQUE: Portable chest LIMITATIONS: None. FINDINGS: Cardiomegaly. Left-sided pacing device with stable postsurgical change. Atheromatous change thoracic aorta. No pneumothorax. Interstitial edema. Suspected small right pleural effusion. Calcified granulomata are noted right lung base IMPRESSION: Cardiomegaly with interstitial edema and suspected small right pleural effusion copyright 2010 [email or web address]- All Rights Reserved
--- NOTE | 2018-12-06 22:17 | RADIOLOGY REPORT (SQ) ---
EXAM DESCRIPTION: CT HEAD WITHOUT IV CONTRAST COMPLETED DATE/TME: 12/06/2018 21:17 CLINICAL HISTORY: 53 years, Male, fall, childerss, anticoagulated COMPARISON: None. TECHNIQUE: 195 Images stored on PACS. All CT scanners at this facility use dose modulation, iterative reconstruction, and/or weight based dosing when appropriate to reduce radiation dose to as low as reasonably achievable (ALARA). [facility]: Dose Right [facility]: CareDose [facility]: Dose Right [facility]: Teradose 4D [facility]: [employer] LIMITATIONS: None. FINDINGS: Globes are intact. Paranasal sinuses and mastoid air cells are unremarkable. No displaced or depressed skull fracture. No intra or extra-axial hemorrhage. CT is limited for evaluation of acute infarct. No CT evidence for large or territorial acute infarct. No mass. No midline shift. Vascular calcifications IMPRESSION: Negative for acute intracranial abnormality TECHNICAL DOCUMENTATION: Quality ID # 436: Final reports with documentation of one or more dose reduction techniques (e.g., Automated exposure control, adjustment of the mA and/or kV according to patient size, use of iterative reconstruction technique) copyright 2011 [employer]- All Rights Reserved
[2018-12-06] MEDS ORDERED: AMIODARONE HCL 200 MG TABLET PO ONE (22:26)
[2018-12-06 23:26] VITALS: BP 100/60
== END 2018-12-06 23:26 | disposition home or self-care (01) ==
LOC: ER 21:05
DX: Z04.3 Encounter for examination and observation following other accident (principal); R42 Dizziness and giddiness; R51 Headache; I13.0 Hypertensive heart and chronic kidney disease with heart failure and stage 1 through stage 4 chronic kidney disease, or unspecified chronic kidney disease; I50.9 Heart failure, unspecified; N18.9 Chronic kidney disease, unspecified; E11.22 Type 2 diabetes mellitus with diabetic chronic kidney disease; J44.9 Chronic obstructive pulmonary disease, unspecified; R09.89 Other specified symptoms and signs involving the circulatory and respiratory systems; F43.10 Post-traumatic stress disorder, unspecified; I48.91 Unspecified atrial fibrillation; Z79.899 Other long term (current) drug therapy; Z79.01 Long term (current) use of anticoagulants; I25.10 Atherosclerotic heart disease of native coronary artery without angina pectoris; Z95.810 Presence of automatic (implantable) cardiac defibrillator; Z88.8 Allergy status to other drugs, medicaments and biological substances; Z88.1 Allergy status to other antibiotic agents
CPT/HCPCS: 99284; 36415; 85025; 85610; 80053; 83880; 71045; 70450; A9270 ×2